=== PATIENT | female | born 1955 | race Caucasian/White ===

== ENCOUNTER → 2017-01-30 | Outpatient (CLI) | payer BC ==
--- NOTE | 2017-01-30 16:10 | MAMMOGRAPHY REPORT ---
BILATERAL DIGITAL SCREENING MAMMOGRAM TOMOSYNTHESIS WITH CAD: 01/30/2017 CLINICAL HISTORY: Routine screening. TECHNIQUE: Breast tomosynthesis in addition to standard 2D mammography was performed. Current study was also evaluated with a Computer Aided Detection (CAD) system. COMPARISON: Comparison is made to exams dated: 12/22/2015 mammogram, 12/20/2014 mammogram, 12/15/2013 m ammogram, 10/13/2012 mammogram, 10/08/2011 mammogram, and 09/28/2010 mammogram - [facility] nter. BREAST COMPOSITION: There are scattered areas of fibroglandular density in both breasts. FINDINGS: The parenchymal pattern is unchanged. No developing mass, architectural distortion or clus ter of suspicious microcalcifications is seen in either breast. IMPRESSION: ACR BI-RADS CATEGORY 2: BENIGN There is no mammographic evidence of malignancy. A 1 year screening mammogram is recommended. The pa tient will receive written notification of the results. Approximately 10% of breast cancers are not detected with mammography. A negative mammographic report should not delay biopsy if a clinically suggestive mass is present. Marjan Haney M.D. ay/:01/30/2017 15:23:53 [employer]: Melany LONG(R)(M), [facility] letter sent: Normal 1/2 BI-RADS Code: ACR BI-RADS Category 2: Benign
== END | disposition home or self-care (01) ==
LOC: C.MAMM 14:58
PROVIDERS: ATTEND Family Medicine
DX: Z12.31 Encounter for screening mammogram for malignant neoplasm of breast (principal)

== ENCOUNTER 2017-04-10 10:49 | Inpatient (IN) | payer BC ==
[~2017-04-10] VITALS: Ht 170.2 cm; Wt 83.2 kg
[2017-04-10] MEDS ORDERED: ONDANSETRON INJ 2 MG/ML 2 ML VIAL IV STA (11:06)
--- NOTE | 2017-04-10 11:26 | DIAGNOSTIC IMAGING REPORT ---
CHEST ONE VIEW PORTABLE CLINICAL HISTORY: Abdominal pain. COMPARISON STUDY: No previous studies for comparison. FINDINGS: Lung volumes are normal. Lungs are clear. No pneumothorax or pleural effusion is present. Pulmonary vascularity is normal. Mild cardiomegaly is noted. IMPRESSION: 1. No acute cardiopulmonary findings. 2. Mild cardiomegaly. Electronically signed by: Ok Velasquez M.D. 04/10/2017 11:24 AM Dictated Date/Time: 04/10/2017 11:23 AM
[2017-04-10 11:27] LABS: BASO % 0.4 %; BASO ABS # 0.02 K/uL (0-0.2); COMPLETE YES; EOS % 0.6 %; IG% 0.2 %; LYMPH % 24.4 %; LYMPH ABS # 1.23 K/uL (1.2-3.4); MEAN CELL VOLUME 92.4 fL (80-100); MEAN CORPUSCULAR HEMOGLOBIN 31.6 pg (25-34); MEAN CORPUSCULAR HGB CONC 34.3 g/dl (32-36); MEAN PLATELET VOLUME 10.3 fL (7.4-10.4); MONO % 6.7 %; NEUT % 67.7 %; PLATELET COUNT 177 K/uL (130-400); RED BLOOD COUNT 4.33 M/uL (4.2-5.4); WHITE BLOOD COUNT 5.04 K/uL (4.8-10.8)
[2017-04-10 11:36] LABS: PROTHROMBIN TIME (PATIENT) 10.5 SECONDS (9.0-12.0)
[2017-04-10 11:47] LABS: BUN/CREATININE RATIO 19.4 (10-20); CALCIUM 9.1 mg/dl (8.5-10.1); CREATININE 0.7 mg/dl (0.60-1.20)
[2017-04-10 11:55] LABS: CKMB/CK RATIO 3.5 (0-3.0)
[2017-04-10] MEDS ORDERED: ATOR10TA82 PO (12:03)
[2017-04-10] MEDS ORDERED: RANI150T3 PO (12:03)
[2017-04-10] MEDS ORDERED: CALCCAP7 PO (12:03)
[2017-04-10] MEDS ORDERED: PSYL58.636 PO (12:03)
[2017-04-10] MEDS ORDERED: GLUC500C60 PO (12:03)
[2017-04-10] MEDS ORDERED: ASPI81TA28 PO (12:03)
[2017-04-10] MEDS ORDERED: OMEG10007 PO (12:03)
--- NOTE | 2017-04-10 12:03 | EMERGENCY ROOM VISIT NOTE ---
History Report prepared by Betzy: Stacy Weber Under the Supervision of: Dr. Kaiden Moseley D.O. First contact with patient: 10:57 Chief Complaint: CARDIAC ASSESSMENT Stated Complaint: HEART ATTACK SX'S History of Present Illness The patient is a 61 year old female who presents to the Emergency Room for a cardiac assessment. The patient woke up at 3am today with back pain, epigastric pain, and "excessive burping." She thought that she had eaten something that was causing her symptoms. This morning she went to a [id number]. They did an ECG and blood work. She was discharged home and advised to take Zantac. She took Zantac without any relief of her symptoms. A couple of hours later she received a call that her troponin was elevated and she should come to the ED for further evaluation. The patient is still experiencing some chest pain, abdominal pain, and nausea. She rates her current pain as a 4/10 in severity. She denies shortness of breath and pain or swelling in her legs. She has a history of hypertrophic cardiomyopathy. She has had a stress test in the past but states that it has been a few years. She has never had a cardiac catheterization. Source of History: patient Onset: this morning Position: chest Symptom Intensity: 4/10 Timing: constant Associated Symptoms: + chest pain, + nausea, + abdominal pain, No SOB Review of Systems See HPI for pertinent positives & negatives. A total of 10 systems reviewed and were otherwise negative. Past Medical & Surgical Medical Problems: (1) Elevated troponin (2) Hyperlipidemia (3) Hypertrophic cardiomyopathy (4) Small bowel obstruction Surgical Problems: (1) H/O: hysterectomy Family History No pertinent history stated. Social History Smoking Status: Never Smoker Alcohol Use: occasionally Marital Status: Housing Status: lives with significant other Current/Historical Medications Scheduled Aspirin (Aspirin Ec), 81 MG PO Q2D Atorvastatin (Lipitor), 10 MG PO Q2D Calcium Carbonate-Vitamin D (Calcium Plus Vitamin D), 2 CAP PO DAILY Fish Oil ([place]-3), 1 CAP PO DAILY Glucosamine-Chondroitin 500MG/400 Mg (Glucosamine-Chondroitin 500 Mg/400 Mg), 1 CAP PO DAILY Psyllium (Metamucil Fiber), 1 DOSE PO DAILY Ranitidine Hcl (Zantac), 150 MG PO PRN Allergies Coded Allergies: No Known Allergies (Verified , 04/10/17) Physical Exam Vital Signs Date Time Temp Pulse Resp B/P (MAP) Pulse Ox O2 Delivery O2 Flow Rate FiO2 04/10/17 12:07 53 20 149/78 94 Room Air 04/10/17 11:48 52 20 164/69 95 Room Air 04/10/17 11:09 61 04/10/17 11:05 Room Air 04/10/17 10:54 37.3 82 18 217/84 98 Room Air Physical Exam GENERAL: Patient is awake, alert, and in no acute distress. Patient is resting comfortably and showing no signs of anxiety EYES: The conjunctivae are clear. The pupils are round and reactive. EARS, NOSE, MOUTH AND THROAT: The nose is without any evidence of any deformity. Mucous membranes are moist tongue is midline NECK: The neck is nontender and supple. RESPIRATORY: Normal respiratory effort is noted there is no evidence of wheezing rhonchi or rales CARDIOVASCULAR: Regular rate and rhythm noted there no murmurs rubs or gallops normal S1 normal S2 GASTROINTESTINAL: The abdomen is mildly distended but soft. There was pain in the epigastric region to palpation no guarding or rigidity was noted. Bowel sounds are present in all quadrants. MUSCULOSKELETAL/EXTREMITIES: There is no evidence of gross deformity full range of motion is noted in the hips and shoulders SKIN: There is no obvious evidence of any rash. There are no petechiae, pallor or cyanosis noted. NEUROLOGIC: Patient is awake alert and oriented x3 Medical Decision & Procedures ER Provider Diagnostic Interpretation: Radiology results as stated below per my review and radiologist interpretation: CHEST ONE VIEW PORTABLE CLINICAL HISTORY: Abdominal pain. COMPARISON STUDY: No previous studies for comparison. FINDINGS: Lung volumes are normal. Lungs are clear. No pneumothorax or pleural effusion is present. Pulmonary vascularity is normal. Mild cardiomegaly is noted. IMPRESSION: 1. No acute cardiopulmonary findings. 2. Mild cardiomegaly. Electronically signed by: Ok Velasquez M.D. 04/10/2017 11:24 AM Dictated Date/Time: 04/10/2017 11:[address] SCAN OF THE ABDOMEN AND PELVIS WITHOUT CONTRAST CLINICAL HISTORY: Epigastric pain COMPARISON STUDY: No previous studies for comparison. TECHNIQUE: CT scan of the abdomen and pelvis was performed from the lung bases to the proximal femurs. Images are reviewed in the axial, sagittal, and coronal planes. IV contrast was not administered for this examination. A dose lowering technique was utilized adhering to the principles of ALARA. CT DOSE: 449.34 mGy.cm FINDINGS: Lower chest: The heart is normal in size and configuration, without pericardial effusion. The lung bases and pleural spaces are clear. Liver: The unenhanced liver is normal in size, contour, and attenuation. There is no intrahepatic biliary ductal dilatation. Gallbladder: Unremarkable. Spleen: Normal in size and attenuation. Pancreas: Unremarkable. Adrenal glands: Unremarkable. Kidneys: No renal, ureteral, or bladder calculi are visualized. Bowel: There is no evidence of acute diverticulitis. The appendix appears normal. There are dilated proximal jejunal loops. The distal small bowel is of normal caliber. The findings are indicative of a small bowel obstructive pattern. There is a left upper quadrant transition zone. There is minimal mesenteric edema. Small bowel loops measure up to 37 mm in diameter. Peritoneum: There is no intraperitoneal free air or abdominal ascites. Vasculature: The abdominal aorta is normal in course and caliber. Adenopathy: None. Pelvic viscera: The patient is status post a prior hysterectomy Skeletal structures: No destructive osseous lesions are seen. IMPRESSION: 1. Dilated fluid-filled proximal small bowel loops with normal caliber distal small bowel. There is minimal associated mesenteric edema. The findings are consistent with a small bowel obstruction. There is no free air. 2. Normal appendix. No evidence of acute diverticulitis. Electronically signed by: John Mckeon M.D. 04/10/2017 12:13 PM Dictated Date/Time: 04/10/2017 11:46 AM Laboratory Results 04/10/17 11: Red Blood Count 4.33, Mean Corpuscular Volume 92.4, Mean Corpuscular Hemoglobin 31.6, Mean Corpuscular Hemoglobin Concent 34.3, Mean Platelet Volume 10.3, Neutrophils (%) (Auto) 67.7, Lymphocytes (%) (Auto) 24.4, Monocytes (%) (Auto) 6.7, Eosinophils (%) (Auto) 0.6, Basophils (%) (Auto) 0.4, Neutrophils # (Auto) 3.41, Lymphocytes # (Auto) 1.23, Monocytes # (Auto) 0.34, Eosinophils # (Auto) 0.03, Basophils # (Auto) 0.02 04/10/17 11:15 Test 04/10/17 11:15 04/10/17 12:30 White Blood Count 5.04 K/uL (4.8-10.8) Red Blood Count 4.33 M/uL (4.2-5.4) Hemoglobin 13.7 g/dL (12.0-16.0) Hematocrit 40.0 % (37-47) Mean Corpuscular Volume 92.4 fL (80-100) Mean Corpuscular Hemoglobin 31.6 pg (25-34) Mean Corpuscular Hemoglobin Concent 34.3 g/dl (32-36) Platelet Count 177 K/uL (130-400) Mean Platelet Volume 10.3 fL (7.4-10.4) Neutrophils (%) (Auto) 67.7 % Lymphocytes (%) (Auto) 24.4 % Monocytes (%) (Auto) 6.7 % Eosinophils (%) (Auto) 0.6 % Basophils (%) (Auto) 0.4 % Neutrophils # (Auto) 3.41 K/uL (1.4-6.5) Lymphocytes # (Auto) 1.23 K/uL (1.2-3.4) Monocytes # (Auto) 0.34 K/uL (0.11-0.59) Eosinophils # (Auto) 0.03 K/uL (0-0.5) Basophils # (Auto) 0.02 K/uL (0-0.2) RDW Standard Deviation 41.8 fL (36.4-46.3) RDW Coefficient of Variation 12.2 % (11.5-14.5) Immature Granulocyte % (Auto) 0.2 % Immature Granulocyte # (Auto) 0.01 K/uL (0.00-0.02) Prothrombin Time 10.5 SECONDS (9.0-12.0) Prothromb Time International Ratio 1.0 (0.9-1.1) Activated Partial Thromboplast Time 27.0 SECONDS (21.0-31.0) Partial Thromboplastin Ratio 1.0 Anion Gap 8.0 mmol/L (3-11) Est Creatinine Clear Calc Drug Dose 95.7 ml/min Estimated GFR () 109.1 Estimated GFR (Non- 94.2 BUN/Creatinine Ratio 19.4 (10-20) Calcium Level 9.1 mg/dl (8.5-10.1) Total Bilirubin 0.7 mg/dl (0.2-1) Direct Bilirubin 0.2 mg/dl (0-0.2) Aspartate Amino Transf (AST/SGOT) 31 U/L (15-37) Alanine Aminotransferase (ALT/SGPT) 36 U/L (12-78) Alkaline Phosphatase 55 U/L (45-117) Total Creatine Kinase 198 U/L (26-192) Creatine Kinase MB 6.9 ng/ml (0.5-3.6) Creatine Kinase MB Ratio 3.5 (0-3.0) Total Protein 7.5 gm/dl (6.4-8.2) Albumin 4.2 gm/dl (3.4-5.0) Amylase Level 51 U/L (25-115) Lipase 120 U/L (73-393) Urine Color YELLOW Urine Appearance CLEAR (CLEAR) Urine pH >= 9.0 (4.5-7.5) Urine Specific [place] 1.014 (1.000-1.030) Urine Protein NEG (NEG) Urine Glucose (UA) NEG (NEG) Urine Ketones TRACE (NEG) Urine Occult Blood NEG (NEG) Urine Nitrite NEG (NEG) Urine Bilirubin NEG (NEG) Urine Urobilinogen NEG (NEG) Urine Leukocyte Esterase NEG (NEG) Laboratory results per my review. Medications Administered Medications (Trade) Dose Ordered Sig/[place] Route Start Time Stop Time Status Last Admin Dose Admin Ondansetron HCl (Zofran Inj) 4 mg NOW STAT IV 04/10/17 11:06 04/10/17 11:07 DC 04/10/17 11:21 4 MG ECG Indication: chest pain Rate (beats per minute): 63 Rhythm: normal sinus Findings: nonspecific-ST abn, T-wave inversion (diffuse), other (LVH by voltage criteria) Comparison ECG Date: no prior available ED Course 1057: The patient was evaluated in room C6. A complete history and physical examination were performed. 1106: Zofran 4 mg IV 1222: I reassessed the patient at this time. She is resting more comfortably. I discussed the results and treatment plan with the patient. I answered all pertaining questions that she had. She expressed understanding and verbalized agreement. 1226: I spoke with Dr. Grimes. We discussed the patients case. The patient will be evaluated by the [facility] for further management. Medical Decision Differential diagnosis: Etiologies such as cardiac ischemia, aortic dissection, pulmonary embolism, pneumonia, pneumothorax, musculoskeletal, infections, pericarditis, myocarditis , esophageal rupture, gastrointestinal, as well as others were entertained. Nursing notes reviewed. The patient is a 61-year-old female who presented to the emergency department for cardiac evaluation. The patient has been expressing epigastric discomfort as well as frequent burping. She's had nausea. Her physical exam was consistent with upper abdominal pain on palpation. The patient's only surgical history is hysterectomy. She has a history of left ventricular hypertrophy and was seen by her primary care physician's office today. She was found have an abnormal EKG and an elevated troponin and was sent to the emergency [place] for further evaluation. I do feel that the patient's presentation today is consistent with a GI presentation. Her CT did show signs of possible small bowel obstruction. I discussed her case with the on-call [facility] hospitalist. She was given aspirin prior to arrival. She was treated with Zofran here. I discussed the patient's laboratory and radiographic studies with her and at this time I would be concerned that this could be more of a GI presentation but given her abnormalities on her cardiac workup which could be consistent with LVH I still feel that she may require further evaluation by cardiology as well as surgery. I discussed his case with the on-call [facility] hospitalist. They've agreed to evaluate the patient in the emergency apartment for further management and disposition. Medication Reconcilliation Current Medication List: was personally reviewed by me Blood Pressure Screening Patient's blood pressure: Elevated blood pressure Blood pressure disposition: Referred to PCP Consults Time Called: 1222 Consulting Physician: Dr. Grimes Returned Call: [address] Grimes. We discussed the patients case. The patient will be evaluated by the [facility] for further management. Impression Primary Impression: SBO (small bowel obstruction) Additional Impressions: Abnormal ECG Elevated troponin Scribe Attestation The scribe's documentation has been prepared under my direction and personally reviewed by me in its entirety. I confirm that the note above accurately reflects all work, treatment, procedures, and medical decision making performed by me. Departure Information Dispostion Being Evaluated By Hospitalist Referrals Bro Oleary M.D. (PCP) Patient Instructions [facility] Problem Qualifiers
--- NOTE | 2017-04-10 12:14 | DIAGNOSTIC IMAGING REPORT ---
CT SCAN OF THE ABDOMEN AND PELVIS WITHOUT CONTRAST CLINICAL HISTORY: Epigastric pain COMPARISON STUDY: No previous studies for comparison. TECHNIQUE: CT scan of the abdomen and pelvis was performed from the lung bases to the proximal femurs. Images are reviewed in the axial, sagittal, and coronal planes. IV contrast was not administered for this examination. A dose lowering technique was utilized adhering to the principles of ALARA. CT DOSE: 449.34 mGy.cm FINDINGS: Lower chest: The heart is normal in size and configuration, without pericardial effusion. The lung bases and pleural spaces are clear. Liver: The unenhanced liver is normal in size, contour, and attenuation. There is no intrahepatic biliary ductal dilatation. Gallbladder: Unremarkable. Spleen: Normal in size and attenuation. Pancreas: Unremarkable. Adrenal glands: Unremarkable. Kidneys: No renal, ureteral, or bladder calculi are visualized. Bowel: There is no evidence of acute diverticulitis. The appendix appears normal. There are dilated proximal jejunal loops. The distal small bowel is of normal caliber. The findings are indicative of a small bowel obstructive pattern. There is a left upper quadrant transition zone. There is minimal mesenteric edema. Small bowel loops measure up to 37 mm in diameter. Peritoneum: There is no intraperitoneal free air or abdominal ascites. Vasculature: The abdominal aorta is normal in course and caliber. Adenopathy: None. Pelvic viscera: The patient is status post a prior hysterectomy Skeletal structures: No destructive osseous lesions are seen. IMPRESSION: 1. Dilated fluid-filled proximal small bowel loops with normal caliber distal small bowel. There is minimal associated mesenteric edema. The findings are consistent with a small bowel obstruction. There is no free air. 2. Normal appendix. No evidence of acute diverticulitis. Electronically signed by: John Mckeon M.D. 04/10/2017 12:13 PM Dictated Date/Time: 04/10/2017 11:46 AM
[2017-04-10] MEDS ORDERED: MoRPHine SULFATE 2 MG/ML CARP IV PRN (12:30)
[2017-04-10] MEDS ORDERED: LORAZEPAM 2 MG/ML 1 ML VIAL IV PRN ×2 (12:30)
[2017-04-10] MEDS ORDERED: NITROGLYCERIN 0.4 MG SL PER TAB CHARGE SL PRN (12:30)
[2017-04-10] MEDS ORDERED: ONDANSETRON INJ 2 MG/ML 2 ML VIAL IV PRN (12:30)
[2017-04-10] MEDS ORDERED: MoRPHine SULFATE 4 MG/ML 1 ML CARP\\VIAL IV PRN (12:30)
[2017-04-10 12:48] LABS: URINE APPEARANCE CLEAR (CLEAR); URINE BILIRUBIN NEG (NEG); URINE COLOR YELLOW; URINE NITRITE NEG (NEG); URINE PH >= 9.0 (4.5-7.5); URINE SPECIFIC GRAVITY 1.014 (1.000-1.030); UROBILINOGEN NEG (NEG)
[2017-04-10 12:49] LABS: MANUAL MICROSCOPIC REQUIRED? NO; REVIEW REQ? NO
[2017-04-10] MEDS ORDERED: ACETAMINOPHEN IV 650 MG in EMPTY BAG 0 ML IV PRN (13:30)
--- NOTE | 2017-04-10 13:34 | Medical Consult ---
Consultation Date of Consultation: Apr 10, 2017. Attending Physician: Reason for Consultation: Small Bowel Obstruction History of Present Illness 61-year-old female with past medical history significant for hypertrophic cardiomyopathy (last seen by Kaiden Okeefe, Cardiology, in 2014) and hypercholesterolemia presented to [facility] ED with complaints of back pain, epigastric pain, and excessive burping. Patient states that she presented to walk-in clinic this AM for evaluation where they conducted an ECG and some bloodwork- pt was instructed to take a Zantac when she was discharged to home from clinic. Reports that Zantac did not help with her symptoms. Patient received a call later stating that she report to ED after troponin level returned and it was elevated. Patient currently denies abdominal pain- reports that she has a sensation of fullness. She denies feeling nauseous. Reports last bowel movement was this AM- only small amount of stool. Patient denies having a bowel obstruction in the past. She had two previous surgeries- 1. Tubal Ligation and 2. Vaginal Hysterectomy. She currently denies chest pain or shortness of breath. Past Medical/Surgical History 1. Heart Attack Symptoms (Cardiac Assessment) 2. Small Bowel Obstruction on CT scan. Surgical History 1. Tubal Ligation 2. Vaginal Hysterectomy. Social History Smoking Status: Never Smoker Marital Status: Housing Status: lives with significant other Allergies Coded Allergies: No Known Allergies (Verified , 04/10/17) Current Inpatient Medications Current Inpatient Medications Medications (Trade) Dose Ordered Sig/[place] Route Start Time Stop Time Status Last Admin Dose Admin Influenza Virus Vaccine Quadrival (Flucelvax Quad Vaccine) 0.5 ml ONCE ONCE IM. 04/10/17 12:30 04/10/17 12:31 UNV Pneumococcal Polysaccharide Vaccine (Pneumovax-23 Inj) 25 mcg ONCE ONCE IM. 04/10/17 12:30 04/10/17 12:31 UNV Sodium Chloride 1,000 ml @ 100 mls/hr Q10H IV 04/10/17 12:29 05/10/17 12:28 UNV Ondansetron HCl (Zofran Inj) 4 mg Q6H PRN IV 04/10/17 12:30 05/10/17 12:29 Nitroglycerin (Nitrostat Tab) 0.4 mg UD PRN SL 04/10/17 12:30 05/10/17 12:29 Lorazepam (Ativan Inj) 0.5 mg Q4H PRN IV 04/10/17 12:30 05/10/17 12:29 UNV Lorazepam (Ativan Inj) 1 mg Q4H PRN IV 04/10/17 12:30 05/10/17 12:29 UNV Morphine Sulfate (MoRPHine SULFATE INJ) 4 mg Q4H PRN IV 04/10/17 12:30 04/24/17 12:29 Morphine Sulfate (MoRPHine SULFATE INJ) 2 mg Q4H PRN IV 04/10/17 12:30 04/24/17 12:29 Pantoprazole Sodium 40 mg/ Syringe 10 ml @ 5 mls/min DAILY@11 IV 04/11/17 11:00 05/11/17 10:59 UNV Review of Systems Constitutional: No fever, No chills Abdomen: + pain (mild epigastric discomfort. ), No nausea, No vomiting, No diarrhea Physical Exam Date Time Temp Pulse Resp B/P (MAP) Pulse Ox O2 Delivery O2 Flow Rate FiO2 04/10/17 12:07 53 20 149/78 94 Room Air 04/10/17 11:48 52 20 164/69 95 Room Air 04/10/17 11:09 61 04/10/17 11:05 Room Air 04/10/17 10:54 37.3 82 18 217/84 98 Room Air General Appearance: WD/WN, no apparent distress Head: normocephalic, atraumatic Abdomen/GI: non tender, soft, + pertinent finding (Abdomen is not distended. ) Laboratory Results Last 24 Hours Test 04/10/17 11:15 04/10/17 12:30 White Blood Count 5.04 K/uL Red Blood Count 4.33 M/uL Hemoglobin 13.7 g/dL Hematocrit 40.0 % Mean Corpuscular Volume 92.4 fL Mean Corpuscular Hemoglobin 31.6 pg Mean Corpuscular Hemoglobin Concent 34.3 g/dl Platelet Count 177 K/uL Mean Platelet Volume 10.3 fL Neutrophils (%) (Auto) 67.7 % Lymphocytes (%) (Auto) 24.4 % Monocytes (%) (Auto) 6.7 % Eosinophils (%) (Auto) 0.6 % Basophils (%) (Auto) 0.4 % Neutrophils # (Auto) 3.41 K/uL Lymphocytes # (Auto) 1.23 K/uL Monocytes # (Auto) 0.34 K/uL Eosinophils # (Auto) 0.03 K/uL Basophils # (Auto) 0.02 K/uL RDW Standard Deviation 41.8 fL RDW Coefficient of Variation 12.2 % Immature Granulocyte % (Auto) 0.2 % Immature Granulocyte # (Auto) 0.01 K/uL Prothrombin Time 10.5 SECONDS Prothromb Time International Ratio 1.0 Activated Partial Thromboplast Time 27.0 SECONDS Partial Thromboplastin Ratio 1.0 Sodium Level 137 mmol/L Potassium Level 4.0 mmol/L Chloride Level 102 mmol/L Carbon Dioxide Level 27 mmol/L Anion Gap 8.0 mmol/L Blood Urea Nitrogen 14 mg/dl Creatinine 0.70 mg/dl Est Creatinine Clear Calc Drug Dose 95.7 ml/min Estimated GFR () 109.1 Estimated GFR (Non- 94.2 BUN/Creatinine Ratio 19.4 Random Glucose 100 mg/dl Calcium Level 9.1 mg/dl Total Bilirubin 0.7 mg/dl Direct Bilirubin 0.2 mg/dl Aspartate Amino Transf (AST/SGOT) 31 U/L Alanine Aminotransferase (ALT/SGPT) 36 U/L Alkaline Phosphatase 55 U/L Total Creatine Kinase 198 U/L Creatine Kinase MB 6.9 ng/ml Creatine Kinase MB Ratio 3.5 Troponin I 0.324 ng/ml Total Protein 7.5 gm/dl Albumin 4.2 gm/dl Amylase Level 51 U/L Lipase 120 U/L Urine Color YELLOW Urine Appearance CLEAR Urine pH >= 9.0 Urine Specific [place] 1.014 Urine Protein NEG Urine Glucose (UA) NEG Urine Ketones TRACE Urine Occult Blood NEG Urine Nitrite NEG Urine Bilirubin NEG Urine Urobilinogen NEG Urine Leukocyte Esterase NEG CT SCAN OF THE ABDOMEN AND PELVIS WITHOUT CONTRAST CLINICAL HISTORY: Epigastric pain COMPARISON STUDY: No previous studies for comparison. TECHNIQUE: CT scan of the abdomen and pelvis was performed from the lung bases to the proximal femurs. Images are reviewed in the axial, sagittal, and coronal planes. IV contrast was not administered for this examination. A dose lowering technique was utilized adhering to the principles of ALARA. CT DOSE: 449.34 mGy.cm FINDINGS: Lower chest: The heart is normal in size and configuration, without pericardial effusion. The lung bases and pleural spaces are clear. Liver: The unenhanced liver is normal in size, contour, and attenuation. There is no intrahepatic biliary ductal dilatation. Gallbladder: Unremarkable. Spleen: Normal in size and attenuation. Pancreas: Unremarkable. Adrenal glands: Unremarkable. Kidneys: No renal, ureteral, or bladder calculi are visualized. Bowel: There is no evidence of acute diverticulitis. The appendix appears normal. There are dilated proximal jejunal loops. The distal small bowel is of normal caliber. The findings are indicative of a small bowel obstructive pattern. There is a left upper quadrant transition zone. There is minimal mesenteric edema. Small bowel loops measure up to 37 mm in diameter. Peritoneum: There is no intraperitoneal free air or abdominal ascites. Vasculature: The abdominal aorta is normal in course and caliber. Adenopathy: None. Pelvic viscera: The patient is status post a prior hysterectomy Skeletal structures: No destructive osseous lesions are seen. IMPRESSION: 1. Dilated fluid-filled proximal small bowel loops with normal caliber distal small bowel. There is minimal associated mesenteric edema. The findings are consistent with a small bowel obstruction. There is no free air. 2. Normal appendix. No evidence of acute diverticulitis. Electronically signed by: John Mckeon M.D. 04/10/2017 12:13 PM Dictated Date/Time: 04/10/2017 11:46 AM Assessment & Plan 61-year-old female with back pain and epigastric pain; Small Bowel Obstruction on CT scan. Patient seen and examined in Emergency Room- she is sitting up in bed, smiling- no signs of distress. Patient to be admitted to Medicine's Service- Tele floor. Cardiology consult placed. Abdominal pain has subsided and she is not nauseous- no indication for NG tube placement at this time. If patient were to become nauseous may need to place NG tube. Patient to remain NPO with Ice Chips and Sips Will repeat KUB in AM. No indication for surgical intervention at this time- General Surgery will continue to follow. Patient's assessment and plan discussed with Dr. Harvey.
--- NOTE | 2017-04-10 13:43 | History and Physical ---
History & Physical Date & Time of Service: Apr 10, 2017 at 13:31 Chief Complaint: Heart Attack Sx's Primary Care Physician: Bro Oleary M.D. History of Present Illness 61-year-old female was awoken in the middle the night with central abdominal pain and increased belching pain radiating to her lower thoracic upper lumbar back this was dull achy pain. This is out of her usual state as the patient is usually fairly healthy pain-free and active. The patient's requested she come to the emergency department however she insisted they go to urgent care center the patient was treated or at least an urgent care center being prescribed Zantac and she took one dose. She then received a phone call that her blood work was abnormal specifically an elevated troponin and was recommended to report to the emergency department. In our ER and the lab work confirms her troponin remains mildly elevated at 0.3 she has a history of hypertrophic cardiomyopathy previously seen by Dr. Okeefe currently followed by [facility] establishing care with Dr. Monge, At no point did she have any chest pressure radiation of pain to her jaw nausea diaphoresis or shortness of breath she states that her hypertrophic cardiomyopathy is fairly asymptomatic she only takes aspirin and atorvastatin every other day otherwise is only on [id number] medications such as fish oil calcium D and glucosamine for some knee discomfort She is currently resting comfortably with exception of some mild low back pain a CT scan of her abdomen and pelvis done because of physical examination discomfort in her abdomen revealed a partial small bowel obstruction by imaging. Past Medical/Surgical History Medical Problems: (1) Hyperlipidemia Status: Chronic (2) Hypertrophic cardiomyopathy Status: Chronic Surgical Problems: (1) H/O: hysterectomy Status: Resolved Social History Smoking Status: Never Smoker Alcohol Use: socially Drug Use: none Marital Status: Housing status: lives with family Immunizations History of Influenza Vaccine: Unknown History of Tetanus Vaccine?: Unknown History of Pneumococcal: Unknown Multi-Drug Resistant Organisms History of MDRO: No Allergies Coded Allergies: No Known Allergies (Verified , 04/10/17) Home Medications Scheduled Aspirin (Aspirin Ec), 81 MG PO Q2D Atorvastatin (Lipitor), 10 MG PO Q2D Calcium Carbonate-Vitamin D (Calcium Plus Vitamin D), 2 CAP PO DAILY Fish Oil ([place]-3), 1 CAP PO DAILY Glucosamine-Chondroitin 500MG/400 Mg (Glucosamine-Chondroitin 500 Mg/400 Mg), 1 CAP PO DAILY Psyllium (Metamucil Fiber), 1 DOSE PO DAILY Ranitidine Hcl (Zantac), 150 MG PO PRN Review of Systems ROS: well nourished well developed No double vision blurry vision No problems with speech or swallowing No palpitations, chest pain or pressure no other radiating symptoms No Wheezing or breathing issues Central abdominal pain but no nausea vomiting no constipation or diarrhea last bowel movement 1 day ago No burning urine urine frequency or changes in color Chronic daily knee pain No skin rashes or oral lesions No unusual bruising or bleeding Mild focused back pain in the lower thoracic high lumbar region dull reproduced by movement 2/10 or numbness or loss of strength No changes in memory or confusion Physical Exam Vital Signs Date Time Temp Pulse Resp B/P (MAP) Pulse Ox O2 Delivery O2 Flow Rate FiO2 04/10/17 12:07 53 20 149/78 94 Room Air 04/10/17 11:48 52 20 164/69 95 Room Air 04/10/17 11:09 61 04/10/17 11:05 Room Air 04/10/17 10:54 37.3 82 18 217/84 98 Room Air General Appearance: WD/WN, + mild distress Head: normocephalic, atraumatic Eyes: normal inspection, PERRL, EOMI ENT: hearing grossly normal, pharynx normal Neck: supple, no JVD Respiratory/Chest: chest non-tender, lungs clear, normal breath sounds Cardiovascular: regular rate, rhythm, no gallop, no JVD, no murmur Abdomen/GI: + tenderness (central abdomen), + abnormal bowel sounds (hypoactive ) Back: no CVA tenderness, + pertinent finding (tenderness to palpation of the lumbar spine) Extremities/Musculoskelatal: no pedal edema, normal range of motion Neurologic/Psych: alert, oriented x 3 Skin: normal color, warm/dry, no rash Diagnostics Laboratory Results Results Past 24 Hours Test 04/10/17 11:15 04/10/17 12:30 Range/Units White Blood Count 5.04 4.8-10.8 K/uL Red Blood Count 4.33 4.2-5.4 M/uL Hemoglobin 13.7 12.0-16.0 g/dL Hematocrit 40.0 37-47 % Mean Corpuscular Volume 92.4 80-100 fL Mean Corpuscular Hemoglobin 31.6 25-34 pg Mean Corpuscular Hemoglobin Concent 34.3 32-36 g/dl Platelet Count 177 130-400 K/uL Mean Platelet Volume 10.3 7.4-10.4 fL Neutrophils (%) (Auto) 67.7 % Lymphocytes (%) (Auto) 24.4 % Monocytes (%) (Auto) 6.7 % Eosinophils (%) (Auto) 0.6 % Basophils (%) (Auto) 0.4 % Neutrophils # (Auto) 3.41 1.4-6.5 K/uL Lymphocytes # (Auto) 1.23 1.2-3.4 K/uL Monocytes # (Auto) 0.34 0.11-0.59 K/uL Eosinophils # (Auto) 0.03 0-0.5 K/uL Basophils # (Auto) 0.02 0-0.2 K/uL RDW Standard Deviation 41.8 36.4-46.3 fL RDW Coefficient of Variation 12.2 11.5-14.5 % Immature Granulocyte % (Auto) 0.2 % Immature Granulocyte # (Auto) 0.01 0.00-0.02 K/uL Prothrombin Time 10.5 9.0-12.0 SECONDS Prothromb Time International Ratio 1.0 0.9-1.1 Activated Partial Thromboplast Time 27.0 21.0-31.0 SECONDS Partial Thromboplastin Ratio 1.0 Sodium Level 137 136-145 mmol/L Potassium Level 4.0 3.5-5.1 mmol/L Chloride Level 102 98-107 mmol/L Carbon Dioxide Level 27 21-32 mmol/L Anion Gap 8.0 3-11 mmol/L Blood Urea Nitrogen 14 7-18 mg/dl Creatinine 0.70 0.60-1.20 mg/dl Est Creatinine Clear Calc Drug Dose 95.7 ml/min Estimated GFR () 109.1 Estimated GFR (Non- 94.2 BUN/Creatinine Ratio 19.4 10-20 Random Glucose 100 70-99 mg/dl Calcium Level 9.1 8.5-10.1 mg/dl Total Bilirubin 0.7 0.2-1 mg/dl Direct Bilirubin 0.2 0-0.2 mg/dl Aspartate Amino Transf (AST/SGOT) 31 15-37 U/L Alanine Aminotransferase (ALT/SGPT) 36 12-78 U/L Alkaline Phosphatase 55 45-117 U/L Total Creatine Kinase 198 26-192 U/L Creatine Kinase MB 6.9 0.5-3.6 ng/ml Creatine Kinase MB Ratio 3.5 0-3.0 Troponin I 0.324 0-0.045 ng/ml Total Protein 7.5 6.4-8.2 gm/dl Albumin 4.2 3.4-5.0 gm/dl Amylase Level 51 25-115 U/L Lipase 120 73-393 U/L Urine Color YELLOW Urine Appearance CLEAR CLEAR Urine pH >= 9.0 4.5-7.5 Urine Specific [place] 1.014 1.000-1.030 Urine Protein NEG NEG Urine Glucose (UA) NEG NEG Urine Ketones TRACE NEG Urine Occult Blood NEG NEG Urine Nitrite NEG NEG Urine Bilirubin NEG NEG Urine Urobilinogen NEG NEG Urine Leukocyte Esterase NEG NEG Diagnostic Radiology CT abdomen and pelvis with concern for small bowel obstruction per radiology report Elevated troponin of 0.32 CXR normal other (sinus rhythm LVH by voltage lateral T-wave inversions no old for comparison) Impression Assessment and Plan 61-year-old female here with abdominal pain CT scan suggests small bowel obstruction with incidentally elevated troponin and history of hypertrophic cardiomyopathy Small bowel obstruction, very little clinical signs will have nothing by mouth except for chips and sips surgical evaluation intravenous fluids for hydration and parenteral opiates for pain control no need for NG tube at this time the patient has had previous abdominal surgery albeit hysterectomy and left upper scopic tubal ligation Elevated troponins these will be collected serially patient will have aspirin held at this time due to the possibility of surgical intervention, cardiology evaluation will be undertaken, echocardiogram is currently pending as the patient cannot recall her last echocardiogram. Hypertrophic cardiopathy this is per history her medications do not suggest she has no significant problems with it likewise her functional ability she states is very good we will hopefully interface with [facility]ology to determine the extent of her hypertrophy. This may explain her EKG changes as she has large voltages with possibly reciprocal T-wave changes DVT prevention is SCDs at this time likewise for concern for surgical intervention we are may also consider heparin therapy and that has a shorter half-life VTE Prophylaxis VTE Risk Assessment Done? Y/N: Yes Risk Level: Moderate
[2017-04-10 15:15] VITALS: BP 158/74; PULSE 60; TEMP 37.4; O2SAT 95; Ht 170.2 cm; Wt 83.2 kg
[2017-04-10 16:00] VITALS: O2SAT 95
[2017-04-10] MEDS: SODIUM CHLORIDE 0.9% 1000ML 1,000 ML IV SCH (16:17)
--- NOTE | 2017-04-10 16:31 | ECHOCARDIOGRAM REPORT ---
*NOTICE TO RECEIVING DEMOCRAT AGENCY This information is strictly Confidential and protected under [place] law. [place] law prohibits you from making any further disclosure of this information unless further disclosure is expressly permitted by the written consent of the person to whom it pertains or is authorized by law. A general authorization for the release of medical or other information is not sufficient for this purpose. Hospital accepts no responsibility if the information is made available to any other person, INCLUDING THE PATIENT. Interpretation Summary * Name: GEOVANY FRANCOIS Study Date: 04/10/2017 03:23 PM BP: 158/103 mmHg * Patient Location: [facility]– [place] HR: 61 * : 1955 (M/d/yyyy) Gender: Female Height: 68 in * Age: 61 yrs Ethnicity: CA Weight: 183 lb * Ordering Physician: Tho Grimes * Referring Physician: Self, Referred * Performed By: Saida Oviedo RDCS * * Reason For Study: CHEST PAIN * BSA: 2.0 m2 * -- Conclusions -- * The left ventricle is hyperdynamic. * No regional wall motion abnormalities noted. * There is severe concentric left ventricular hypertrophy. * The echo findings are consistent with hypertrophic cardiomyopathy. * Ejection Fraction = >70 %. * There is mild mitral regurgitation. Procedure Details * A complete two-dimensional transthoracic echocardiogram was performed (2D, M-mode, Doppler and color flow Doppler). Left Ventricle * The left ventricular cavity is small. * There is severe concentric left ventricular hypertrophy. * The echo findings are consistent with hypertrophic cardiomyopathy. * Ejection Fraction = >70 %. * The left ventricle is hyperdynamic. * No regional wall motion abnormalities noted. Right Ventricle * The right ventricle is grossly normal size. * The right ventricular systolic function is normal as assessed by tricuspid annular plane systolic excursion (TAPSE) (normal >1.5 cm). Atria * The left atrial size is normal. * Right atrial size is normal. * No ASD detected; PFO is not assessed. Mitral Valve * The mitral valve is normal. * There is systolic anterior motion of the mitral valve. * There is no mitral valve stenosis. * There is mild mitral regurgitation. Tricuspid Valve * The tricuspid valve anatomy is normal. * There is no tricuspid stenosis. * There is trace tricuspid regurgitation. Aortic Valve * The aortic valve is normal in structure and function. * No hemodynamically significant valvular aortic stenosis. * No aortic regurgitation is present. Pulmonic Valve * The pulmonary valve is not well seen, but the Doppler examination is normal without significant regurgitation or stenosis. Great Vessels * The aortic root is normal size. * The pulmonary artery is not well visualized, but is probably normal size. Pericardium/Pleural * There is no pericardial effusion. Great Vessels * Normal inferior vena cava size and collapsability with sniff indicates a normal right atrial pressure of 3 mmHg Left Ventricular Diastolic Function * Grade I diastolic dysfunction, (abnormal relaxation pattern). MMode 2D Measurements and Calculations IVSd 2.1 cm IVSs 2.6 cm LVIDd 4.0 cm LVIDs 2.2 cm LVPWd 1.7 cm LVPWs 2.4 cm IVS/LVPW 1.2 FS 45.3 % EDV(Teich) 71.8 ml ESV(Teich) 16.5 ml EF(Teich) 77.1 % EDV(cubed) 66.1 ml ESV(cubed) 10.8 ml EF(cubed) 83.6 % % IVS thick 25.3 % % LVPW thick 41.9 % LV mass(C)d 348.4 grams LV mass(C)dI 177.0 grams/m\S\2 LV mass(C)s 311.2 grams LV mass(C)sI 158.1 grams/m\S\2 SV(Teich) 55.3 ml SI(Teich) 28.1 ml/m\S\2 SV(cubed) 55.2 ml SI(cubed) 28.1 ml/m\S\2 Ao root diam 2.7 cm Ao root area 5.7 cm\S\2 LA dimension 4.3 cm LA/Ao 1.6 LVAd ap4 27.2 cm\S\2 LVLd ap4 8.5 cm EDV(MOD-sp4) 73.5 ml EDV(sp4-el) 73.9 ml LVAs ap4 11.5 cm\S\2 LVLs ap4 6.6 cm ESV(MOD-sp4) 18.5 ml ESV(sp4-el) 17.0 ml EF(MOD-sp4) 74.9 % EF(sp4-el) 76.9 % LVAd ap2 22.0 cm\S\2 LVLd ap2 7.6 cm EDV(MOD-sp2) 53.5 ml EDV(sp2-el) 54.1 ml LVAs ap2 9.9 cm\S\2 LVLs ap2 6.5 cm ESV(MOD-sp2) 13.4 ml ESV(sp2-el) 12.9 ml EF(MOD-sp2) 74.9 % EF(sp2-el) 76.2 % LVLd %diff -11.29 % EDV(MOD-bp) 67.4 ml LVLs %diff -1.54 % ESV(MOD-bp) 15.8 ml EF(MOD-bp) 76.5 % SV(MOD-sp4) 55.0 ml SI(MOD-sp4) 28.0 ml/m\S\2 SV(MOD-sp2) 40.1 ml SI(MOD-sp2) 20.4 ml/m\S\2 SV(MOD-bp) 51.6 ml SI(MOD-bp) 26.2 ml/m\S\2 SV(sp4-el) 56.8 ml SI(sp4-el) 28.9 ml/m\S\2 SV(sp2-el) 41.3 ml SI(sp2-el) 21.0 ml/m\S\2 Doppler Measurements and Calculations MV E max sanaz 71.1 cm/sec MV A max sanaz 93.2 cm/sec MV E/A 0.76 MV dec time 0.23 sec Ao V2 max 193.4 cm/sec Ao max PG 15.0 mmHg Ao max PG (full) 5.8 mmHg LV V1 max PG 9.1 mmHg LV V1 max 150.9 cm/sec TR max sanaz 253.1 cm/sec
[2017-04-10 19:41] VITALS: BP 175/87; TEMP 36.7; O2SAT 96
[2017-04-10 20:00] VITALS: O2SAT 96
[2017-04-10 23:20] VITALS: BP 139/73; PULSE 47; TEMP 36.8; O2SAT 98
[2017-04-10 23:48] VITALS: BP 146/76; PULSE 50; TEMP 36.8; O2SAT 96
[2017-04-11] VITALS (9 sets, daily range): BP systolic 122–154; BP diastolic 67–73; PULSE 47–58; TEMP 36.7–37.3; O2SAT 94–98
[2017-04-11] MEDS: SODIUM CHLORIDE 0.9% 1000ML 1,000 ML IV SCH ×2 (01:38→11:02)
[2017-04-11 06:25] LABS: HEMATOCRIT 36.7 % (37-47); MEAN CELL VOLUME 93.6 fL (80-100); MEAN CORPUSCULAR HEMOGLOBIN 31.9 pg (25-34); MEAN CORPUSCULAR HGB CONC 34.1 g/dl (32-36); MEAN PLATELET VOLUME 10.7 fL (7.4-10.4); PLATELET COUNT 155 K/uL (130-400); RED BLOOD COUNT 3.92 M/uL (4.2-5.4); WHITE BLOOD COUNT 4.28 K/uL (4.8-10.8)
[2017-04-11 07:02] LABS: BUN/CREATININE RATIO 16.2 (10-20); CALCIUM 8.4 mg/dl (8.5-10.1); CREATININE 0.75 mg/dl (0.60-1.20); POTASSIUM 3.9 mmol/L (3.5-5.1)
[2017-04-11 07:05] LABS: CHOLESTEROL/HDL RATIO 2.3
[2017-04-11] MEDS ORDERED: INFLUENZA VIRUS QUAD VACCINE 0.5 ML SYR IM. ONE (08:00)
[2017-04-11] MEDS ORDERED: INFLUENZA ADMINISTRATION CHARGE ONE (08:00)
[2017-04-11] MEDS ORDERED: PNEUMOCOCCAL ADMINISTRATION CHARGE ONE (08:00)
[2017-04-11] MEDS ORDERED: PNEUMOCOCCAL POLYSACCHARIDES 25 MCG/0.5 ML VIAL/SYR IM. ONE (08:00)
--- NOTE | 2017-04-11 08:52 | DIAGNOSTIC IMAGING REPORT ---
KUB CLINICAL HISTORY: 61 years-old Female presenting with Small Bowel Obstruction. TECHNIQUE: Single supine view of the abdomen was obtained. COMPARISON: CT from 04/10/2017. FINDINGS: Moderate stool burden noted throughout the colon. Hyperdensity within the colon likely medication administration. Previously noted dilated small bowel is not apparent as it is not distended with gas. No gross pneumoperitoneum. No calcifications to suggest nephrolithiasis. Osseous structures normal. Lung bases clear. IMPRESSION: 1. Possibly of small bowel gas, nonspecific and limiting evaluation for resolution of small bowel obstruction. 2. Moderate stool burden. Electronically signed by: Edison Tena M.D. 04/11/2017 8:50 AM Dictated Date/Time: 04/11/2017 8:47 AM
--- NOTE | 2017-04-11 09:30 | Surgery Progress Note ---
Surgery Progress Note Date of Service Apr 11, 2017. Subjective + feeling well, + pain controlled, No complaints, No bowel movement, No nausea, No vomiting Sitting up in bed- just returned from KUB. at bedside. No complaints, no new concerns overnight. Objective Vital Signs: Date Time Temp Pulse Resp B/P (MAP) Pulse Ox O2 Delivery O2 Flow Rate FiO2 04/11/17 08:00 98 Room Air 04/11/17 07:51 Room Air 04/11/17 07:26 37.3 53 18 154/73 (100) 98 Room Air 04/11/17 04:48 36.8 47 18 139/73 (95) 98 Room Air 04/11/17 04:00 96 Room Air 04/11/17 00:01 98 Room Air 04/10/17 23:48 36.8 50 18 146/76 (99) 96 Room Air 04/10/17 20:00 96 Room Air 04/10/17 19:41 36.7 18 175/87 (116) 96 Room Air 04/10/17 16:00 95 Room Air 04/10/17 15:15 37.4 60 16 158/74 95 Room Air 04/10/17 14:00 61 20 158/103 96 Room Air 04/10/17 12:07 53 20 149/78 94 Room Air 04/10/17 11:48 52 20 164/69 95 Room Air 04/10/17 11:09 61 04/10/17 11:05 Room Air 04/10/17 10:54 37.3 82 18 217/84 98 Room Air General Appearance: WD/WN, no apparent distress Head: normocephalic, atraumatic Abdomen: non tender, non distended, soft Laboratory Results: Results Past 24 Hours Test 04/10/17 11:15 04/10/17 12:30 04/10/17 18:16 04/11/17 02:52 Range/Units White Blood Count 5.04 4.8-10.8 K/uL Red Blood Count 4.33 4.2-5.4 M/uL Hemoglobin 13.7 12.0-16.0 g/dL Hematocrit 40.0 37-47 % Mean Corpuscular Volume 92.4 80-100 fL Mean Corpuscular Hemoglobin 31.6 25-34 pg Mean Corpuscular Hemoglobin Concent 34.3 32-36 g/dl Platelet Count 177 130-400 K/uL Mean Platelet Volume 10.3 7.4-10.4 fL Neutrophils (%) (Auto) 67.7 % Lymphocytes (%) (Auto) 24.4 % Monocytes (%) (Auto) 6.7 % Eosinophils (%) (Auto) 0.6 % Basophils (%) (Auto) 0.4 % Neutrophils # (Auto) 3.41 1.4-6.5 K/uL Lymphocytes # (Auto) 1.23 1.2-3.4 K/uL Monocytes # (Auto) 0.34 0.11-0.59 K/uL Eosinophils # (Auto) 0.03 0-0.5 K/uL Basophils # (Auto) 0.02 0-0.2 K/uL RDW Standard Deviation 41.8 36.4-46.3 fL RDW Coefficient of Variation 12.2 11.5-14.5 % Immature Granulocyte % (Auto) 0.2 % Immature Granulocyte # (Auto) 0.01 0.00-0.02 K/uL Prothrombin Time 10.5 9.0-12.0 SECONDS Prothromb Time International Ratio 1.0 0.9-1.1 Activated Partial Thromboplast Time 27.0 21.0-31.0 SECONDS Partial Thromboplastin Ratio 1.0 Sodium Level 137 136-145 mmol/L Potassium Level 4.0 3.5-5.1 mmol/L Chloride Level 102 98-107 mmol/L Carbon Dioxide Level 27 21-32 mmol/L Anion Gap 8.0 3-11 mmol/L Blood Urea Nitrogen 14 7-18 mg/dl Creatinine 0.70 0.60-1.20 mg/dl Est Creatinine Clear Calc Drug Dose 95.7 ml/min Estimated GFR () 109.1 Estimated GFR (Non- 94.2 BUN/Creatinine Ratio 19.4 10-20 Random Glucose 100 70-99 mg/dl Calcium Level 9.1 8.5-10.1 mg/dl Total Bilirubin 0.7 0.2-1 mg/dl Direct Bilirubin 0.2 0-0.2 mg/dl Aspartate Amino Transf (AST/SGOT) 31 15-37 U/L Alanine Aminotransferase (ALT/SGPT) 36 12-78 U/L Alkaline Phosphatase 55 45-117 U/L Total Creatine Kinase 198 26-192 U/L Creatine Kinase MB 6.9 0.5-3.6 ng/ml Creatine Kinase MB Ratio 3.5 0-3.0 Troponin I 0.324 0.297 0.319 0-0.045 ng/ml Total Protein 7.5 6.4-8.2 gm/dl Albumin 4.2 3.4-5.0 gm/dl Amylase Level 51 25-115 U/L Lipase 120 73-393 U/L Urine Color YELLOW Urine Appearance CLEAR CLEAR Urine pH >= 9.0 4.5-7.5 Urine Specific [place] 1.014 1.000-1.030 Urine Protein NEG NEG Urine Glucose (UA) NEG NEG Urine Ketones TRACE NEG Urine Occult Blood NEG NEG Urine Nitrite NEG NEG Urine Bilirubin NEG NEG Urine Urobilinogen NEG NEG Urine Leukocyte Esterase NEG NEG Test 04/11/17 05:18 Range/Units White Blood Count 4.28 4.8-10.8 K/uL Red Blood Count 3.92 4.2-5.4 M/uL Hemoglobin 12.5 12.0-16.0 g/dL Hematocrit 36.7 37-47 % Mean Corpuscular Volume 93.6 80-100 fL Mean Corpuscular Hemoglobin 31.9 25-34 pg Mean Corpuscular Hemoglobin Concent 34.1 32-36 g/dl RDW Standard Deviation 42.2 36.4-46.3 fL RDW Coefficient of Variation 12.3 11.5-14.5 % Platelet Count 155 130-400 K/uL Mean Platelet Volume 10.7 7.4-10.4 fL Sodium Level 143 136-145 mmol/L Potassium Level 3.9 3.5-5.1 mmol/L Chloride Level 110 98-107 mmol/L Carbon Dioxide Level 26 21-32 mmol/L Anion Gap 7.0 3-11 mmol/L Blood Urea Nitrogen 12 7-18 mg/dl Creatinine 0.75 0.60-1.20 mg/dl Est Creatinine Clear Calc Drug Dose 88.5 ml/min Estimated GFR () 100.4 Estimated GFR (Non- 86.6 BUN/Creatinine Ratio 16.2 10-20 Random Glucose 84 70-99 mg/dl Calcium Level 8.4 8.5-10.1 mg/dl Triglycerides Level 76 0-150 mg/dl Cholesterol Level 142 0-200 mg/dl HDL Cholesterol 61 mg/dl LDL Cholesterol, Calculated 66 mg/dl VLDL Cholesterol, Calculated 15 mg/dl Cholesterol/HDL Ratio 2.3 KUB CLINICAL HISTORY: 61 years-old Female presenting with Small Bowel Obstruction. TECHNIQUE: Single supine view of the abdomen was obtained. COMPARISON: CT from 04/10/2017. FINDINGS: Moderate stool burden noted throughout the colon. Hyperdensity within the colon likely medication administration. Previously noted dilated small bowel is not apparent as it is not distended with gas. No gross pneumoperitoneum. No calcifications to suggest nephrolithiasis. Osseous structures normal. Lung bases clear. IMPRESSION: 1. Possibly of small bowel gas, nonspecific and limiting evaluation for resolution of small bowel obstruction. 2. Moderate stool burden. Assessment & Plan 61yo female Elevated Troponin, Small Bowel Obstruction on CT scan Patient continues to feel well- no new concerns overnight. Feeling hungry this AM. No BM yet. Remains afebrile. KUB this AM- KUB reviewed and discussed with Dr. Harvey. IMPRESSION: 1. Possibly of small bowel gas, nonspecific and limiting evaluation for resolution of small bowel obstruction. 2. Moderate stool burden. Will advance diet to clear liquids. Awaiting Cardiology consult. Reviewed patient's echocardiogram. General Surgery will continue to follow.
[2017-04-11] MEDS ORDERED: PANTOprazole INJ 40 MG in SYRINGE 0 ML IV SCH (11:00)
--- NOTE | 2017-04-11 15:07 | Discharge Instructions ---
Discharge Instructions Date of Service Apr 11, 2017. Admission Reason for Admission: Elevated Troponin, Small Bowel Obstruction Discharge Discharge Diagnosis / Problem: Small bowel obstruction, elevated troponin Discharge Goals Goal(s): Decrease discomfort, Prevent Disease Progression Activity Recommendations Activity Limitations: per Instructions/Follow-up section . Instructions / Follow-Up Instructions / Follow-Up You were admitted to the hospital due to the findings of a small bowel obstruction on CT scan as well as elevated troponins Your small bowel obstruction appeared to improve after remaining without food. Repeat imaging was unremarkable. We had surgery evaluate you in case you needed to be taken for surgery. An ultrasound of your heart showed Hypertrophic Cardiomyopathy but did not show any other findings. You were seen by Dr. Monge who would like you to follow up with has an outpatient. The case therapist will phone the office to book an appointment. Please phone his office to confirm this Your cholesterol labs showed that they were well controlled. If you have any worsening abdominal pain, back pain, chest pain or palpitations then please come back to the emergency department. Please follow up with your PCP in the next 1-2 weeks Current Hospital Diet Patient's current hospital diet: Regular Diet Discharge Diet Recommended Diet: Regular Diet Pending Studies Studies pending at discharge: no Laboratory Results Lipid Panel Test 04/11/17 05:18 Range/Units Triglycerides Level 76 0-150 mg/dl Cholesterol Level 142 0-200 mg/dl HDL Cholesterol 61 mg/dl Cholesterol/HDL Ratio 2.3 LDL Cholesterol, Calculated 66 mg/dl Medical Emergencies . Who to Call and When: Medical Emergencies: If at any time you feel your situation is an emergency, please call 911 immediately. . Non-Emergent Contact Non-Emergency issues call your: Primary Care Provider, [facility] . . "Provider Documentation" section prepared by Leroy Mims. . VTE Core Measure Inpt VTE Proph given/why not?: SCD's
--- NOTE | 2017-04-11 15:14 | Discharge Summary ---
Discharge Summary Date of Service Apr 11, 2017. (Leroy Mims MD) Discharge Summary Admission Date: Apr 10, 2017 at 12:34 Discharge Date: Apr 11, 2017 Discharge Disposition: Home Principal Diagnosis: Small bowel obstruction, elevated troponins Immunizations: Have You Had Influenza Vaccine: Unknown History of Tetanus Vaccine?: Unknown History of Pneumococcal: Unknown Consultations: Surgery Cardiology (Leroy Mims MD) Medication Reconciliation Continued Medications: Aspirin (Aspirin Ec) 81 Mg Tab 81 MG PO Q2D Atorvastatin (Lipitor) 10 Mg Tab 10 MG PO Q2D, TAB Calcium Carbonate-Vitamin D (Calcium Plus Vitamin D) 1 Cap Cap 2 CAP PO DAILY Fish Oil ([place]-3) 1 Ea Cap 1 CAP PO DAILY, CAP Glucosamine-Chondroitin 500MG/400 Mg (Glucosamine-Chondroitin 500 Mg/400 Mg) 1 Cap Cap 1 CAP PO DAILY Psyllium (Metamucil Fiber) 51.7 % Vinnie 1 DOSE PO DAILY Ranitidine Hcl (Zantac) 150 Mg Tab 150 MG PO PRN, TAB Discharge Exam Patient is without any symptoms overnight Denies any chest pain, palpitations, abdominal pain or back pain. Is tolerating a normal diet without any nausea or vomiting Review of Systems: Constitutional: No fever, No chills, No sweats Respiratory: No cough, No sputum, No shortness of breath Cardiovascular: No chest pain, No edema, No claudication, No palpitations Abdomen: No pain, No nausea, No vomiting, No diarrhea Musculoskeletal: No joint pain, No muscle pain, No swelling Neurologic: No weakness, No numbness/tingling, No balance problems Physical Exam: General Appearance: WD/WN, no apparent distress ENT: hearing grossly normal, pharynx normal Neck: supple, no JVD, no carotid bruits Respiratory/Chest: lungs clear, no respiratory distress, no accessory muscle use Cardiovascular: regular rate, rhythm, no edema, normal peripheral pulses, + systolic murmur (1/6 at RLSB) Abdomen / GI: normal bowel sounds, non tender, soft Extremities: normal inspection, no calf tenderness, no pedal edema Neurologic/Psychiatric: normal mood/affect, oriented x 3 Skin: normal color, warm/dry, no rash (Leroy Mims MD) tolerated regular diet. no chest pain, shortness of breath Review of Systems: Constitutional: No fever Respiratory: No shortness of breath Cardiovascular: No chest pain Abdomen: No pain, No nausea, No vomiting Physical Exam: General Appearance: no apparent distress Respiratory/Chest: lungs clear, no respiratory distress Cardiovascular: regular rate, rhythm Abdomen / GI: normal bowel sounds, non tender, soft Neurologic/Psychiatric: alert, oriented x 3 Skin: warm/dry (Patsy Jernigan M.D.) Hospital Course 61-year-old female here with abdominal pain CT scan suggests small bowel obstruction with incidentally elevated troponin and history of hypertrophic cardiomyopathy Small bowel obstruction, small bowel obstruction found on CT patient made NPO and surgery was consulted patient was given IVF overnight patient improved and repeat KUB without any obstruction patient tolerated diet on day of discharge without any nausea or vomiting Hypertrophic Cardiomyopathy elevated troponins = 0.324, 0.297, 0.319 echo with EF of 70% and showed HOCM total cholesterol 124 LDL 66 HDL 61 EKG = NSR with possible left sided enlargement patient seen by cardiology and discuss case with Dr. Monge and troponins likely elevated due to LVH, ok to discharge continue aspirin, statin GERD continue ranitidine Patient will follow up with PCP and Dr. Monge as outpatient Total Time Spent: Less than 30 minutes This includes examination of the patient, discharge planning, medication reconciliation, and communication with other providers. (Leroy Mims MD) Resident Physician Supervision Note: I independently interviewed and examined the patient and verified the nicolas history and physical, reviewed labs and image studies, discussed the case with the resident Dr. Mims and agree with the findings and care plan. Total Time Spent: Greater than 30 minutes (35) (Patsy Jernigan M.D.) Discharge Instructions Please refer to the electronic Patient Visit Report (Discharge Instructions) for additional information. (Leroy Mims MD) Additional Copies To [place] Monge, ; Bro Oleary M.D.
== END 2017-04-11 16:24 | disposition home or self-care (01) | DRG 389 ==
LOC: C.EDB 10:50 → C.2T 12:34 → ENRESERV 12:51
PROVIDERS: ADMIT Internal Medicine; ATTEND Family Medicine
DX: K56.600 Partial intestinal obstruction, unspecified as to cause (principal); I42.2 Other hypertrophic cardiomyopathy; R74.8 Abnormal levels of other serum enzymes; I51.7 Cardiomegaly; K21.9 Gastro-esophageal reflux disease without esophagitis; E78.00 Pure hypercholesterolemia, unspecified; E78.5 Hyperlipidemia, unspecified; Z79.82 Long term (current) use of aspirin; Z79.899 Other long term (current) drug therapy

== ENCOUNTER → 2017-04-10 | Outpatient (CLI) | payer BC ==
[~2017-04-10] MED LIST: ASPI81TA28 PO; ATOR10TA82 PO; CALCCAP7 PO; GLUC500C60 PO; OMEG10007 PO; PSYL58.636 PO; RANI150T3 PO
== END | disposition home or self-care (01) ==
LOC: C.LAB 09:27
PROVIDERS: ATTEND Student in an Organized Health Care Education/Training Program
DX: R10.9 Unspecified abdominal pain (principal)

== ENCOUNTER 2019-12-05 16:05 | Inpatient (IN) ==
[~2019-12-05 16:05] MED LIST changes: -ASPI81TA28 PO; -ATOR10TA82 PO; -CALCCAP7 PO; +ETOMIDATE 2 MG/ML 20 ML VIAL IV ONE; -GLUC500C60 PO; -OMEG10007 PO; -PSYL58.636 PO; -RANI150T3 PO; +RAPID SEQUENCE INDUCTION BAG ONE; +SUCCINYLCHOLINE CHLORIDE 20 MG/ML 10 ML VIAL IV ONE
[2019-12-05] MEDS ORDERED: SODIUM CHLORIDE 0.9% 500 ML IV SCH (16:15)
[2019-12-05] MEDS ORDERED: LORazepam 2 MG/4 ML VIAL IV STA (16:24)
[2019-12-05] MEDS ORDERED: LORazepam 2 MG/4 ML VIAL ONE (16:25)
[2019-12-05 16:40] LABS: iSTAT Hemoglobin 12.2 g/dl (12.0-16.0); iSTAT Ionized Calcium 1.03 mmol/l (1.12-1.32)
[2019-12-05 16:41] LABS: Hematocrit (blood only) 37.9 % (37-47); Hemoglobin 12.7 g/dL (12.0-16.0); Mean Corpuscular Hemoglobin 32.1 pg (25-34); Mean Corpuscular Hgb Conc 33.5 g/dL (32-36); Mean Corpuscular Volume 95.7 fL (80-100); Mean Platelet Volume 11.2 fL (7.4-10.4); Platelet Count 157 K/uL (130-400); RDW Coefficient of Variation 12.4 % (11.5-14.5); RDW Standard Deviation 43.3 fL (36.4-46.3); Red Blood Count 3.96 M/uL (4.2-5.4); White Blood Count 9.28 K/uL (4.8-10.8)
--- NOTE | 2019-12-05 16:53 | XRay Report ---
SINGLE VIEW CHEST CLINICAL HISTORY: Atypical chest pain. FINDINGS: An AP, portable, supine chest radiograph is obtained. No prior studies are available for co mparison at the time of dictation. The examination is degraded by portable technique and supine posit ioning. An endotracheal tube is in place. The tip projects approximately 5 cm above the christopher. An en teric tube has been placed. The tip projects below the diaphragm over the gastric fundus. Cardiac pad s are in place. The heart is top normal for projection. The pulmonary vasculature is noncongested. Th e lungs and pleural spaces are clear. No pneumothorax is seen. The bony thorax is grossly intact. IMPRESSION: 1. Endotracheal and enteric tubes have been placed as above. 2. The lungs are clear. ACT 112: Negative or not required by law. Electronically signed by: Oswaldo Rubio M.D. 12/05/2019 4:51 PM
[2019-12-05 16:57] LABS: INR 1.2 (0.9-1.1); Prothrombin Time 12.5 Seconds (9.0-12.0)
[2019-12-05] MEDS ORDERED: OPTIRAY 320 125ml IV PRN (16:57)
--- NOTE | 2019-12-05 17:07 | CT Scan Report ---
CT SCAN OF THE BRAIN WITHOUT IV CONTRAST CLINICAL HISTORY: Status post cardiac arrest. Loss of consciousness. COMPARISON STUDY: No priors. TECHNIQUE: Unenhanced axial CT scan of the brain is performed from the vertex to the skull base. A d ose lowering technique was utilized adhering to the principles of ALARA. The skull base was scanned t wice due to motion artifact. The examination is mildly motion degraded. FINDINGS: Endotracheal and enteric tubes are noted on the glass silverer tomogram. Fluid is noted in the pharynx. Brain parenchyma: The brain parenchyma is normal in appearance. There is no hemorrhage, mass effect, or evidence of acute territorial ischemia by CT criteria. Sylvester-white matter differentiation is preser tra. No extra-axial fluid collection is seen. Ventricles, sulci, cisterns: Normal in configuration. Intracranial vasculature: The visualized intracranial vasculature at the skull base is normal in appe arance. Calvarium: Unremarkable. Sinuses and mastoids: The visualized paranasal sinuses are clear. The mastoid air cells are well pneu matized. Orbits: The bony orbits are grossly intact. IMPRESSION: There is no hemorrhage, mass effect, or evidence of acute territorial ischemia by CT sandy light. ACT 112: Negative or not required by law. Electronically signed by: Oswaldo Rubio M.D. 12/05/2019 5:04 PM
[2019-12-05 17:09] LABS: Albumin Level 2.7 gm/dl (3.4-5.0); BUN Creatinine Ratio 14.1 (10-20); Bilirubin,Total 0.4 mg/dl (0.2-1); Est GFR (African American) 56.3; Est GFR (Non-African American) 48.5; Globulin 2.6 gm/dl (2.5-4.0); Total Protein 5.3 gm/dl (6.4-8.2)
--- NOTE | 2019-12-05 17:09 | CT Scan Report ---
CT SCAN OF THE CERVICAL SPINE CLINICAL HISTORY: Loss of consciousness. Status post cardiac arrest. COMPARISON STUDY: No priors. TECHNIQUE: CT scan of the cervical spine is performed from the skull base to the upper thoracic spine . Images are reviewed in the axial, sagittal, and coronal planes. IV contrast was not administered fo r this examination. A dose lowering technique was utilized adhering to the principles of ALARA. CT DOSE: 1715.93 mGy.cm FINDINGS: Skeletal structures: The skeletal structures are osteopenic. There is no evidence of fracture or subl uxation involving the cervical spine. Vertebral body height and alignment are maintained. Anterior os teophytes are seen throughout. The odontoid process and lateral masses are intact. The atlantoaxial a rticulation is preserved noting productive degenerative change. The spinous processes appear intact. Intervertebral discs: Mild disc space narrowing is noted at C5-C6. The remaining disc spaces are pres erved. Central canal: A posterior disc osteophyte complex at C5-C6 may contribute to mild acquired compromis e of the central canal. Soft tissues: The prevertebral and paraspinous soft tissues are within normal limits. Calvarium: The visualized calvarium at the skull base appears intact. Brain parenchyma: Partially visualized brain parenchyma the skull base is within normal limits. Sinuses and mastoids: The visualized paranasal sinuses are clear. The mastoid air cells are well pneu matized. Upper chest: Endotracheal and enteric tubes are in place. Apical lung parenchyma is clear as imaged. IMPRESSION: There is no evidence of fracture or subluxation involving the cervical spine. ACT 112: Negative or not required by law. Electronically signed by: Oswaldo Rubio M.D. 12/05/2019 5:07 PM
[2019-12-05 17:17] LABS: Troponin I 0.383 ng/ml (0-0.045)
[2019-12-05 17:18] LABS: Potassium 3.5 mmol/L (3.5-5.1)
--- NOTE | 2019-12-05 17:21 | CT Scan Report ---
CT ANGIOGRAM OF THE CHEST CLINICAL HISTORY: Cardiac arrest. Loss of consciousness. COMPARISON STUDY: Chest x-ray dated 12/05/2019. TECHNIQUE: Following the IV administration of 119 cc of Optiray 320, CT angiogram of the chest was pe rformed from the upper abdomen to the thoracic inlet utilizing the pulmonary embolus protocol. Images are reviewed in the axial, sagittal, and coronal planes. 3-D MIPS images are created and assessed. I V contrast was administered without complication. A dose lowering technique was utilized adhering to the principles of ALARA. The examination is degraded by motion artifact. There is also streak artifa ct from the arms which could not be elevated above the chest. FINDINGS: Thyroid: Imaged portions of the thyroid gland are normal in size and attenuation. Thoracic aorta: The thoracic aorta is normal in caliber and demonstrates bovine variant arch anatomy. No dissection is seen. Pulmonary vasculature: The pulmonary trunk is normal in caliber. There are no filling defects identif ied in main, lobar, or segmental pulmonary branches to suggest pulmonary embolus. Heart: The heart is normal in top size noting trace pericardial effusion. The left ventricular myocar dium appears thickened. Lungs and pleural spaces: An endotracheal tube terminates above the christopher. Secretions are seen in th e distal trachea and the right mainstem bronchus. Evaluation of the lung parenchyma is degraded by mo tion artifact. There is dense dependent airspace consolidation seen in both lungs. Mild intraoperativ e septal thickening is noted. No pleural effusion is identified. There is no pneumothorax. Mediastinum: There is no mediastinal lymphadenopathy. Mari: Clear. Axillae: There is no axillary lymphadenopathy. Upper abdomen: Enteric tube terminates below the diaphragm. Trace pericolic ascites is noted. Skeletal structures: The skeletal structures are osteopenic. There are acute right anterior 3rd throu gh 5th rib fractures. There are acute left anterior 4th through 6th rib fractures. No lytic or blasti c bony lesions are seen. IMPRESSION: 1. There is no evidence of pulmonary embolus in the main, lobar, or segmental pulmonary arteries. 2. There is dense dependent airspace consolidation seen bilaterally. This likely represents pneumonia versus aspiration pneumonitis. Clinical correlation will be required. 3. The heart is top normal in size and the left ventricular myocardium appears thickened. This is non specific but could be seen in the setting of hypertrophic cardiomyopathy. Consider correlation with e chocardiography. 4. Mild diffuse intralobular septal thickening suggests congestive change. 5. Acute anterior rib fractures are seen bilaterally, likely related to resuscitation. 6. Trace perihepatic ascites. 7. Endotracheal and enteric tubes are in place. ACT 112: Negative or not required by law. Electronically signed by: Oswaldo Rubio M.D. 12/05/2019 5:19 PM
[2019-12-05 17:24] LABS: Appearance Urine Cloudy (Clear); Bacteria Urine Automated 2+ (Negative); Bilirubin Urine Negative (Negative); Blood Urine 3+ (Negative); Color Urine Orange; Epithelial Cell Urine Auto >30 /lpf (0-5); Glucose Urine UA 1+ (Negative); Ketones Urine Negative (Negative); Leukocyte Esterase Urine Trace (Negative); Nitrite Urine Negative (Negative); Specific Gravity Urine 1.018 (1.000-1.030); Urobilinogen Urine Negative (Negative); WBC Urine Automated >30 /hpf (0-5); pH Urine 8.5 (4.5-7.5)
[2019-12-05 17:28] LABS: Protein Urine 4+ (Negative)
[2019-12-05 17:33] LABS: Sulfosalicylic Acid Urine Positive (Negative)
[2019-12-05] MEDS ORDERED: HEPARIN (PORCINE) 1000 UNIT/ML 10 ML (CATH LAB USE ONLY) ONE (17:34)
[2019-12-05] MEDS ORDERED: MIDAZOLAM HCL 1 MG/ML 2ML VIAL ONE ×2 (17:35→18:20)
[2019-12-05] MEDS ORDERED: NITROGLYCERIN/D5W 100MCG/ML 20ML SYR ONE (17:35)
[2019-12-05] MEDS ORDERED: fentaNYL citrate 100 MCG/2 ML VIAL ONE (17:35)
[2019-12-05] MEDS ORDERED: NiCARDipine HCL INJ 2.5 MG/ML 10 ML AMP ONE (17:35)
--- NOTE | 2019-12-05 17:37 | Emergency Department Note ---
History of Present Illness General Chief Complaint: Cardiac Arrest/CPR Stated Complaint: CARDIAC ARREST Source: EMS Mode of arrival: EMS Limitations: altered mental status History of Present Illness Provider complaint: collapsed during activity Onset (ago): hour(s) less than 1 Timing confirmed by: EMS AED applied by bystander/rn plasma center: Yes (Police) Shock advised: Yes Number of shocks delivered: 1 Downtime before ACLS arrival (mins): 10 Initial findings in the field: unresponsive, no pulse and other rhythm (Asystole) ROSC in the field: Yes Known history of: other (Hypertrophic cardiomyopathy (HOCM)) This is a 64-year-old female who was brought in by EMS. EMS report that the patient was out for a walk and collapsed. It is uncertain who was with the patient, if anyone. EMS reported that the patient was initially evaluated by police who placed an AED. AED shocked the patient once. The patient was found to be in asystole when EMS arrived. The police were performing CPR. The pat ient was treated with 3 mg of IV epinephrine and she was then found to be in PEA after a couple of minutes. She received a total 5 mg of IV epinephrine in route here. Upon her arrival here, CPR was in progress with Nader machine. My initial evaluation reveals that the patient does have pulseless. CPR was discontinued. The patient was further evaluated here. No additional information was obtained by EMS or by family. The did eventually come to the ED. He was unaware of the occurrence. Home Medications Home Medications Medication Instructions Recorded Confirmed Type ASPIRIN (ASPIRIN EC) 81 mg PO Q2D #0 04/10/17 History ATORVASTATIN (LIPITOR) 10 mg PO Q2D #0 tab 04/10/17 History CALCIUM CARBONATE-VITAMIN D 2 cap PO DAILY #0 04/10/17 History (CALCIUM PLUS VITAMIN D) Fish Oil (Emerson-3) 1 cap PO DAILY #0 cap 04/10/17 History GLUCOSAMINE-CHONDROITIN 500MG/400 1 cap PO DAILY #0 04/10/17 History MG (GLUCOSAMINE-CHONDROITIN 500 MG/400 MG) Psyllium (Metamucil Fiber) 1 dose PO DAILY #0 04/10/17 History Ranitidine Hcl (ZANTAC) 150 mg PO PRN #0 tab 04/10/17 History Allergies Allergy/AdvReac Type Severity Reaction Status Date / Time No Known Allergies Allergy Unknown Verified 12/05/19 17:16 Past Med/Surg History Social History Smoking Status: Unknown if ever smoked Review of Systems A total of 10 systems reviewed and were otherwise negative Physical Exam Vital Signs: Vital Signs - 24 hr 12/05/19 16:07 12/05/19 16:13 12/05/19 16:15 Pulse Rate 98 H 92 H 88 Pulse Rate from Sp O2 Sensor Respiratory Rate 14 Respiratory Effort / Characteristics Blood Pressure 169/141 H 109/75 Blood Pressure Sharmila n 150 86 Blood Pressure Pos ition Lying Pulse Oximetry 94 Oxygen Delivery Me thod Ambu-Bag Fraction of Inspir ed Oxygen Sepsis Recent Feve r Within 48 Hours No Sepsis New/Unexpla ined Change in Men liz Status No Sepsis Action Take n by Nursing No Action Required End-Tidal CO2 Pulse Oximetry Pos t Tiitration 12/05/19 16:17 12/05/19 16:20 12/05/19 16:25 Pulse Rate 90 87 81 Pulse Rate from Sp O2 Sensor 90 88 Respiratory Rate 17 Respiratory Effort / Characteristics Blood Pressure 109/75 113/63 Blood Pressure Sharmila n 83 78 Blood Pressure Pos ition Pulse Oximetry 84 L 90 98 Oxygen Delivery Me thod Fraction of Inspir ed Oxygen 80 Sepsis Recent Feve r Within 48 Hours Sepsis New/Unexpla ined Change in Men liz Status Sepsis Action Take n by Nursing End-Tidal CO2 29 36 43 Pulse Oximetry Pos t Tiitration 12/05/19 16:30 12/05/19 16:31 12/05/19 16:40 Pulse Rate 83 82 86 Pulse Rate from Sp O2 Sensor 71 82 86 Respiratory Rate Respiratory Effort / Characteristics Blood Pressure 105/67 130/76 Blood Pressure Sharmila n 76 82 Blood Pressure Pos ition Pulse Oximetry 94 100 100 Oxygen Delivery Me thod Mechanical Vent Fraction of Inspir ed Oxygen Sepsis Recent Feve r Within 48 Hours Sepsis New/Unexpla ined Change in Men liz Status Sepsis Action Take n by Nursing End-Tidal CO2 43 37 37 Pulse Oximetry Pos t Tiitration 99 12/05/19 16:45 12/05/19 16:50 Pulse Rate 80 Pulse Rate from Sp O2 Sensor 80 Respiratory Rate Respiratory Effort / Characteristics Mechanically Venti lated Blood Pressure 101/64 Blood Pressure Sharmila n 70 Blood Pressure Pos ition Pulse Oximetry 100 Oxygen Delivery Me thod Fraction of Inspir ed Oxygen Sepsis Recent Feve r Within 48 Hours Sepsis New/Unexpla ined Change in Men liz Status Sepsis Action Take n by Nursing End-Tidal CO2 25 Pulse Oximetry Pos t Tiitration Physical Exam: CONSTITUTIONAL/VITAL SIGNS: Reviewed / noted above. GENERAL: Patient is being bagged with BVM. She does have some spontaneous respi rations and is clenching down on an oral airway. INTEGUMENTARY: Warm, dry, and pale. HEAD: Normocephalic. EYES: without scleral icterus or trauma. ENT/OROPHARYNX: clear and moist. RESPIRATORY: Lungs clear and equal. CARDIOVASCULAR: Regular rate and rhythm. GI/ABDOMEN: Soft . EXTREMITIES: Warm and well perfused. BACK: Visually normal. NEUROLOGICAL: The patient is breathing above the vent. She was seen to move her upper extremities at times. PSYCHIATRIC: Unable to assess. MUSCULOSKELETAL: Normally developed. TRIAGE NURSING DOCUMENTATION REVIEWED. Procedures ABG Interpretation ABG Interpretation 1: ABG Results: pH is 7.24, PCO2 is 40 and PaO2 is 119 Interpretation: metabolic acidosis Intubation Time out performed: Yes sedative: Etomidate Mg Given: 20 paralytic: Succinylcholine Mg Given: 120 Laryngoscope: fiber optic video scope ET Tube Size: 7.5 ET Tube Uncuffed: Yes Tube Secured Depth (cm): 23 Tube Secured Location: teeth Tube Placement Confirmation: visualized tube passing through cords, equal breath sounds bilaterally, no breath sounds over epigastrium and confirmation by capnometry Patient Tolerated Procedure: well Intubation Complications: none Course Administered Medications Ioversol (Optiray 320 125ml) 119 ml IV ONCE PRN PRN Reason: Interaction Checking Stop: 12/09/19 16:56 Last Admin: 12/05/19 16:57 Dose: 119 ml Documented by: [id number] Discontinued Medications Sodium Chloride (Nss) 500 mls @ 999 mls/hr IV .Q31M SAMPSON Stop: 12/05/19 16:45 Last Admin: 12/05/19 17:03 Dose: 999 mls/hr Documented by: [id number] Lorazepam (Ativan) 2 mg in 4 mls @ 4 mls/min IV NOW STA Stop: 12/05/19 16:25 Last Admin: 12/05/19 17:03 Dose: 4 mls/min Documented by: [id number] Lorazepam (Ativan) Confirm Administered Dose 2 mg .ROUTE .STK-MED ONE Stop: 12/05/19 16:26 Last Admin: 12/05/19 17:03 Dose: Not Given Documented by: [id number] Miscellaneous () Confirm Administered Dose 1 ea .ROUTE .STK-MED ONE Stop: 12/05/19 16:00 Last Admin: 12/05/19 17:03 Dose: 1 ea Documented by: [id number] Medical Decision Making Differential Diagnosis + Cardiopulmonary Resuscitation-successful, + Cardiopulmonary Resuscitation-unsuccessful, + acute coronary symdrome, + pulmonary embolism, + hyperkalemia, + tension pneumothorax, + hypovolemia, + acidosis and + toxicol ogic Medical Records Attestation: I reviewed the patient's medical records. Home Medications Current Medication List: was personally reviewed by me Laboratory Data Attestation: I reviewed the patient's lab results. Result diagrams: 12/05/19 16:28 12/05/19 16:18 Lab Results 12/05/19 12/05/19 12/05/19 Range/Units 16:18 16:28 16:28 WBC 9.28 (4.8-10.8) K/uL RBC 3.96 L (4.2-5.4) M/uL Hgb 12.7 (12.0-16.0) g/dL POC Hgb (12.0-16.0) g/dl Hct 37.9 (37-47) % POC Hct (37-47) % MCV 95.7 (80-100) fL MCH 32.1 (25-34) pg MCHC 33.5 (32-36) g/dL RDW Std Deviation 43.3 (36.4-46.3) fL RDW Coeff of Franchesca 12.4 (11.5-14.5) % Plt Count 157 (130-400) K/uL MPV 11.2 H (7.4-10.4) fL PT 12.5 H (9.0-12.0) Seconds INR 1.2 H (0.9-1.1) APTT 27.0 (21.0-31.0) Seconds PTT Ratio 1.0 POC Sodium (135-144) mmol/L Sodium 145 (136-145) mmol/L POC Potassium (3.3-5.0) mmol/L Potassium 3.5 (3.5-5.1) mmol/L POC Chloride (101-112) mmol/L Chloride 112 H (98-107) mmol/L Carbon Dioxide 20 L (21-32) mmol/L POC Total CO2 (24-31) mmol/L Anion Gap 13.0 H (3-11) POC Anion Gap (16-25) mmol/L POC BUN (7-18) mg/dl BUN 17 (7-18) mg/dl Creatinine 1.19 (0.6-1.2) mg/dl POC Creatinine (0.6-1.3) mg/dl Est Cr Clr Drug Dosing 54.0 ml/min Est GFR ( Amer) 56.3 Est GFR (Non-Af Amer) 48.5 BUN/Creatinine Ratio 14.1 (10-20) Glucose 215 H (70-99) mg/dl POC Glucose (other) (70-99) mg/dl Lactate (0.4-2.0) mmol/L Calcium 7.0 L (8.5-10.1) mg/dl POC Ioniz Calcium Germain (1.12-1.32) mmol/l Total Bilirubin 0.4 (0.2-1) mg/dl ALT 823 H (12-78) U/L Alkaline Phosphatase 54 (45-117) U/L Troponin I 0.383 H* (0-0.045) ng/ml Total Protein 5.3 L (6.4-8.2) gm/dl Albumin 2.7 L (3.4-5.0) gm/dl Globulin 2.6 (2.5-4.0) gm/dl Albumin/Globulin Ratio 1.0 (0.9-2) Lipase 135 (73-393) U/L Specimen Hemolysis 12/05/19 12/05/19 Range/Units 16:28 16:28 WBC (4.8-10.8) K/uL RBC (4.2-5.4) M/uL Hgb (12.0-16.0) g/dL POC Hgb 12.2 (12.0-16.0) g/dl Hct (37-47) % POC Hct 36 L (37-47) % MCV (80-100) fL MCH (25-34) pg MCHC (32-36) g/dL RDW Std Deviation (36.4-46.3) fL RDW Coeff of Franchesca (11.5-14.5) % Plt Count (130-400) K/uL MPV (7.4-10.4) fL PT (9.0-12.0) Seconds INR (0.9-1.1) APTT (21.0-31.0) Seconds PTT Ratio POC Sodium 141 (135-144) mmol/L Sodium (136-145) mmol/L POC Potassium 4.0 (3.3-5.0) mmol/L Potassium (3.5-5.1) mmol/L POC Chloride 105 (101-112) mmol/L Chloride (98-107) mmol/L Carbon Dioxide (21-32) mmol/L POC Total CO2 21 L (24-31) mmol/L Anion Gap (3-11) POC Anion Gap 20.0 (16-25) mmol/L POC BUN 22 H (7-18) mg/dl BUN (7-18) mg/dl Creatinine (0.6-1.2) mg/dl POC Creatinine 1.0 (0.6-1.3) mg/dl Est Cr Clr Drug Dosing ml/min Est GFR ( Amer) Est GFR (Non-Af Amer) BUN/Creatinine Ratio (10-20) Glucose (70-99) mg/dl POC Glucose (other) 218 H (70-99) mg/dl Lactate 6.6 H* (0.4-2.0) mmol/L Calcium (8.5-10.1) mg/dl POC Ioniz Calcium Germain 1.03 L (1.12-1.32) mmol/l Total Bilirubin (0.2-1) mg/dl ALT (12-78) U/L Alkaline Phosphatase (45-117) U/L Troponin I (0-0.045) ng/ml Total Protein (6.4-8.2) gm/dl Albumin (3.4-5.0) gm/dl Globulin (2.5-4.0) gm/dl Albumin/Globulin Ratio (0.9-2) Lipase (73-393) U/L Specimen Hemolysis Imaging Data Radiologist's Impression: CT scan of the chest: IMPRESSION: 1. There is no evidence of pulmonary embolus in the main, lobar, or segmental pulmonary arteries. 2. There is dense dependent airspace consolidation seen bilaterally. This likely represents pneumonia versus aspiration pneumonitis. Clinical correlation will be required. 3. The heart is top normal in size and the left ventricular myocardium appears thickened. This is nonspecific but could be seen in the setting of hypertrophic cardiomyopathy. Consider correlation with echocardiography. 4. Mild diffuse intralobular septal thickening suggests congestive change. 5. Acute anterior rib fractures are seen bilaterally, likely related to resuscitation. 6. Trace perihepatic ascites. 7. Endotracheal and enteric tubes are in place. CT scan of the cervical spine:IMPRESSION: There is no evidence of fracture or subluxation involving the cervical spine. CT head: IMPRESSION: There is no hemorrhage, mass effect, or evidence of acute territorial ischemia by CT criteria. Chest x-ray:IMPRESSION: 1. Endotracheal and enteric tubes have been placed as above. 2. The lungs are clear. ECG Data Attestation: I personally reviewed and interpreted this ECG as follows: Indication: other (Status post cardiac arrest) Rate (beats per minute): 88 Rhythm: normal sinus Findings: + T-wave inversion (Lateral) and + prolonged QT; no PVC and no ST elevation Change: no significant change (Apr 10, 2017) Blood Pressure Blood Pressure Findings: Normal blood pressure MDM Narrative This is a 64-year-old female who was brought in by EMS. EMS report that the patient was out for a walk and collapsed. It is uncertain who was with the patient, if anyone. EMS reported that the patient was initially evaluated by police who placed an AED. AED shocked the patient once. The patient was found to be in asystole when EMS arrived. The police were performing CPR. The patient was treated with 3 mg of IV epinephrine and she was then found to be in PEA after a couple of minutes. She received a total 5 mg of IV epinephrine in route here. Upon her arrival here, CPR was in progress with Nader machine. My initial evaluation reveals that the patient does have pulseless. CPR was discontinued. The patient was further evaluated here. No additional information was obtained by EMS or by family. The did eventually come to the ED. He was unaware of the occurrence. When he arrived, he did report that the patient has a history of HOCM. A twelve-lead EKG shows a normal sinus rhythm at a rate of 88 with T wave inversions in the lateral leads and a slightly prolonged QTC. This was compared to April 10, 2017. The EKG looks slightly different although the T wave inversions appear to be old. The patient had a chest x-ray here. Endotracheal tube was in good position. This intubati on was performed here by myself. CT scan of the brain and cervical spine did not show acute issues. CT scan of the chest did suggest possible aspiration bilaterally as well as cardiomegaly and acute anterior rib fractures bilaterally. CBC and chemistry panel was unremarkable. Glucose is 215. Lactic acid level was 6.6. AST and ALT are elevated. Troponin is elevated at 0.383. An ABG was for performed after intubation. This reveals a metabolic acidosis with normal PCO2 and normal oxygenation on 100%. The patient received some IV Ativan to help with sedation. The patient remained clinically stable during her ED stay. We did initiate hypothermia protocol. I did speak with Dr. Arthur dejesus bout the patient. He will take the patient to the [facility] for further cardiac evaluation. Impression & Plan Cardiac arrest, Hypertrophic cardiomyopathy, Fracture, ribs, Aspiration into airway Critical Care Time Critical Care Time: Yes Total Critical Care Time: 90 I have personally spent 90 minutes of critical care time in the direct management of this patient. This includes bedside care, interpretation of diagnostic studies, and testing, discussion with consultants, patient, and family members, and other required patient management activities. This 90 minutes is in excess of all separately billable procedures. Discharge Plan Visit Data Chief Complaint: Cardiac Arrest/CPR Stated Complaint: CARDIAC ARREST ED Provider: Bernardo Bryan Discharge Problem: Cardiac arrest, Hypertrophic cardiomyopathy, Fracture, ribs, Aspiration into airway Patient Disposition: Admitted As Inpatient Forms Stand Alone Forms: [facility] Prescriptions Prescriptions: No Action ASPIRIN (ASPIRIN EC) 81 MG tablet 81 mg PO Q2D Qty: 0 RF: 0 ATORVASTATIN (LIPITOR) 10 MG tablet 10 mg PO Q2D Qty: 0 RF: 0 CALCIUM CARBONATE-VITAMIN D (CALCIUM PLUS VITAMIN D) 1 CAP capsule 2 cap PO DAILY Qty: 0 RF: 0 Fish Oil (Emerson-3) 1 EA capsule 1 cap PO DAILY Qty: 0 RF: 0 GLUCOSAMINE-CHONDROITIN 500MG/400 MG (GLUCOSAMINE-CHONDROITIN 500 MG/400 MG) 1 CAP capsule 1 cap PO DAILY Qty: 0 RF: 0 Psyllium (Metamucil Fiber) 51.7 % NED 1 dose PO DAILY Qty: 0 RF: 0 Ranitidine Hcl (ZANTAC) 150 MG tablet 150 mg PO PRN Qty: 0 RF: 0 Referrals Referrals: Bro Oleary MD [Primary Care Provider] -
[2019-12-05 17:38] LABS: RBC Urine Automated >30 /hpf (0-4)
[2019-12-05] MEDS ORDERED: LORazepam 1 MG/2 ML VIAL IV STA (17:40)
[2019-12-05 17:44] LABS: Basophils # (auto) 0.02 K/uL (0-0.2); Basophils % (auto) 0.2 %; Echinocytes 1+; Eosinophils # (auto) 0.04 K/uL (0-0.5); Eosinophils % (auto) 0.4 %; Immature Granulocytes # (auto) 0.15 K/uL (0.00-0.02); Immature Granulocytes % (auto) 1.6 %; Lymphocytes # (auto) 4.87 K/uL (1.2-3.4); Lymphocytes % (auto) 52.5 %; Monocytes # (auto) 0.31 K/uL (0.11-0.59); Monocytes % (auto) 3.3 %; Neutrophils # (auto) 3.89 K/uL (1.4-6.5)
--- OUTSIDE RECORDS SUMMARY | 2019-12-05 18:40 | External Medical Summary | Continuity of Care Document ---
:1955 Author Name Marci Peng, Provider Address Unavailable Unavailable , Care Team Providers Name Role Phone Unavailable Unavailable Unavailable GÉNESIS FRAZIER Unavailable Unavailable Unavailable Unavailable Unavailable Problems Encounter for routine gynecological examination (V72.31) (Z0 1.419) Hypercholesterolemia (272.0) (E78.00) Postmenopausal bleeding (627.1) (N95.0) Dyspareunia (625.0) Urethral caruncle (599.3) (N36.2) Hypertrophic cardiomyopathy (425.18) (I42.2) Allergies and Adverse Reactions No Known Drug Allergies (Allergy) Medications Caltrate 600 TABS; Take 1 tablet twice daily , M.D. Refills: 0 Fish Oil CAPS; Take 1 capsule twice daily , M.D. Refills: 0 Aspirin Low Dose 81 MG TABS; TAKE 1 TABLET Every other day , M.D. Refills: 0 Glucosamine Chondroitin TABS; Take 1 tablet twice daily , M. D. Refills: 0 Lipitor 10 MG Oral Tablet; TAKE 1 TABLET Every other day , M .D. Refills: 0 Procedures History of Tubal Ligation Status: Comple cheryl History of Vaginal Hysterectomy Status: Completed History of Oral Surgery Tooth Extraction Status: Completed Immunizations Immunizations not documented Family History aunt Family history of Colon Cancer (V16.0) Status: Active Sister Family history of Alcoholism Status: Active Social History - Smoking Status Tobacco smoking consumption unknown Never smoked tobacco Plan of Treatment Planned Observations Planned Goals not documented Results No Known Results Results not documented
[2019-12-05] MEDS ORDERED: ICU PROTOCOL FOR HYPERGLYCEMIA PRN ×2 (18:52→19:14)
[2019-12-05] MEDS ORDERED: SODIUM CHLORIDE 0.9% 1000ML 1,000 ML IV SCH (19:00)
--- NOTE | 2019-12-05 19:08 | Cardiac Catheterization ---
[facility] Data: [facility] Cardiac Status Clinical evaluation leading to the procedure CAD Presenation: Sx unlikely to be ischemic (Cardiac arrest) Cardiogenic Shock within 24 Hours: No Cardiac Arrest within 24 Hours: Yes Imaging Studies Past 6 Months: No Stress Studies Past 6 Months: No Diagnostic Physicians Name: Evin Gibson MD Status: Emergency Closure Device Percutaneous Entry Location: Radial Closure Device: Radial Band Recommendations: Medical Therapy and/or Counseling Intraprocedure Events Significant Disection: No Perforation: No Cardiac Cath Procedure Full Procedure Date December 05, 2019 Pre-Procedure Diagnosis Pre-Procedure Diagnosis: Cardiothoracic Symptom (Cardiac arrest) AUC Score AUC Score: 7 Post-Procedure Diagnosis Post-Procedure Diagnosis: Moderate CAD and Normal Intracardiac Pressures Procedure(s) Performed Procedure(s) Performed: Coronary Angiography, Left Heart Cath and Procedure (Central venous catheter/cooling catheter placement) Crew Person Evin Gibson MD Sales Clerk Supervisor(s) Lorena Estimated Blood Loss Estimated Blood Loss: 10 Medication(s) Medication(s): Fentanyl, Lidocaine 1%, Nicardipine, Nitroglycerin and Versed Summary of Findings Indication: 64-year-old woman with a history of hypertrophic cardiomyopathy followed by Dr. Cornelius for her cardiac care. Had out of hospital arrest today while walking. Initial shockable rhythm by ED. Prolonged PEA arrest in route with ROSC noted on arrival to ED. ECG with reported lateral ST depressions. Access: 6 Fr slender right radial artery under ultrasound guidance, 8Fr cooling catheter placed to right CFV under ultrasound guidance Catheters: Goode Findings: LM -Short, 20% ostial LAD -medium caliber vessel which wraps around apex. Mid LAD after first diagonal with 50% stenosis. Medium caliber second diagonal with 60 to 70% ostial stenosis Circumflex -medium caliber vessel, luminal irregularities. Gives off to OM's and a distal left PLB. RCA -dominant, large caliber vessel, 40 to 50% ostial stenosis improved with va sodilators. Remainder vessel without significant disease LVEDP -10 Arterial Closure: TR band Summary: 1. Moderate nonobstructive coronary artery disease -40 to 50% ostial RCA 20% ostial left main 50% mid LAD 60 to 70% ostial second diagonal 2. Normal intracardiac filling pressure 3. Successful central venous/cooling catheter placement Recommendations: ERNESTO-3 flow throughout and no evidence of high-grade acute coronary lesions. No disease to explain out of hospital cardiac arrest. Further cardiac evaluation/possible ICD per recommendations of her primary road monkey Dr. Monge. Continue aspirin, statin and ASCVD risk factor modification. Hemodynamics Rest Ao:: 122/66/90 Final Ao: 122/69/97 LV: 109/10 Recommendations Recommendations: Medical Therapy and/or Counseling Specimens Specimens: None Radiation Exposure (mGy) 995 Contrast (mls) 50 Fluids (cc crystalloids) Fluids (cc crystalloids): 60 Drains Drains: None Anesthesia Moderate Procedural Complication(s) None Disposition ICU I attest to the content of the Intraoperative Record and any orders documented therein. Any exceptions are noted below. [facility] Card Cath Procedure Codes Cardiac Catheterization Procedure 1: Cardiovascular Cath Procedures: 89353 Coronaries and LHC (+/-LV) Therapeutic Services & Ancillary Proc Procedure 1: Cardiovascular Tx and Anc Procedures: 36184 Ultrasonic Guidance Vascular Access Procedure 2: Cardiovascular Tx and Anc Procedures: 32764 Ultrasonic Guidance Vascular Access Procedure 3: Cardiovascular Tx and Anc Procedures: 36402 Insertion Central Venous Catheter Moderate Sedation Procedure 1: Sedation/Anesthesia: 19904 Mod Sedation by the same physician;Init15 Min Child Age 5 & Up PG Care Time/CCT Total # of Minutes Spent Total Time Spent with Patient: Total time spent is greater than 50% in coordination of care (as documented) at patient's floor/unit and/or counseling patient:
[2019-12-05] MEDS ORDERED: ALBUT/IPRATROP 3MG/0.5MG NEB 3 ML VIAL INH PRN (19:14)
[2019-12-05] MEDS ORDERED: BusPIRone 15 MG TAB NG PRN (19:17)
[2019-12-05] MEDS ORDERED: PROPOFOL BOLUS FROM BAG IV PRN (19:17)
[2019-12-05] MEDS ORDERED: FENTANYL BOLUS FROM BAG IV PRN (19:17)
[2019-12-05] MEDS ORDERED: TRAMADOL HCL 50 MG TABLET NG PRN (19:17)
[2019-12-05] MEDS ORDERED: ACETAMINOPHEN 650 MG SUPP PR PRN (19:17)
[2019-12-05] MEDS ORDERED: STAT IV Infusion **Titration per Protocol STA (19:17)
--- NOTE | 2019-12-05 19:24 | Critical Care Consultation ---
Date of Consultation December 05, 2019 Assessment & Plan (1) Cardiac arrest: Reason Critically Ill: 64-year-old female with in field V. fib arrest and shocked x1 with AED, converted to PEA and ROSC achieved in the emergency department. Taken to [facility] [employer] with no indication for intervention. Patient not following commands, now undergoing 24-hour therapeutic hypothermia. Neuro - Anoxic brain injurypatient unresponsive following ROSC after cardiac arrest -Ventricular dysrhythmia and candidate for therapeutic hypothermia which has been initiated -Therapeutic hypothermia protocol -CT head negative for acute process -EEG in a.m. -Sedation: Propofol and fentanyl Cardiac - Cardiac arrestpatient with unwitnessed arrest while going for a walk, story unclear of who discovered patient and if she received CPR prior to first responders arrival -Please on scene attached AED and received shock x1 followed by CPR. AED report revealed V. fib arrest, attached to chart. -Patient was in PEA with EMS and was attached to the [facility] and brought out to the ED and converted to sinus rhythm with CPR and epi. 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 -Maximize electrolytes -Continuous monitoring on telemetry -Cardiology consulted, will follow up recommendations. It is likely that patient will need ICD if she recovers Respiratory - Mechanically ventilatedintubated following cardiac arrest for airway protection -Current vent settings: AC VC 18/450/5/30 percent -Evidence of pulmonary infiltrates suggestive of aspiration versus pneumonia on CT chest, will add antibiotic coverage -Nebs as needed -Frequent ABGs, adjust vent settings as indicated -Monitor end-tidal CO2 and continuous pulse ox -Patient to remain intubated during therapeutic hypothermia and rewarming phase GI - N.p.o., NG tube to low wall intermittent suction Transaminitisno history of liver disease, likely shock liver following cardiac arrest -We will continue to trend LFTs and maintain map management for now RENAL/LYTES - Creatinine within normal limits, patient is high risk for developing ERIC following cardiac arrest -We will continue to monitor with frequent BMPs -Continue IV fluid resuscitation and map management -Avoid nephrotoxins and renally adjust medications Lactic acidosisfollowing pulseless/cardiac arrest, improving - Foleystrict I's and O's ENDO - No history of diabetes or thyroid disease -Follow-up hemoglobin A1c and TSH -ICU hyperglycemic protocol HEME - H&H stable, monitor routine CBCs ID - Patient afebrile, no leukocytosis, evidence of aspiration versus pneumonia on CT chest -MRSA positive -Urine culture pending -Ceftriaxone and vancomycin for pulmonary coverage LINES/IV ACCESS - Right femoral central line/cooling cath, right femoral arterial line, peripheral IVs, ETT, OG tube DVT PROPHYLAXIS - SCDs, heparin I have personally spent 70 minutes of critical care time in the direct management of this patient. This is a life/limb threatening event. This includes time spent evaluating patient, direct bedside care, chart review, placing orders, interpretation of diagnostic studies, discussion with consultants, patient, and family members, as well as other required patient management activities. This time is exclusive of all separately billable procedures, and teaching time and separate from and in addition to any other critical care service time. Thank you for allowing us to participate in the care of this patient. Please refer to my attending physician's documentation for any further recommendations. (2) Transaminitis: (3) Fracture, ribs: (4) Aspiration into airway: (5) Hypertrophic cardiomyopathy: (6) Hyperlipidemia: (7) Elevated troponin: (8) Anoxic brain damage: Supervising Physician Co-Signing Physician Notes I was advised of this patient via telephone. Also advised of procedural needs by Michael SALAS. Agree with the documented plan. History of Present Illness Attending Physician: Lee Brandt MD History of Present Illness 64-year-old female with past medical history of hyperdynamic cardiomyopathy who presented to the emergency department via EMS in cardiac arrest. Patient was on a walk when she was found collapsed, which is unclear whether it was a witnessed arrest. Police did respond and started CPR and patient received 1 shock with AED. AED report did reveal that the patient was in V. fib at that time and strips placed on chart. When EMS arrived the patient was in a PEA rhythm and she was placed on Nader machine. ROSC was achieved in the emergency department with epi and CPR. Patient was unresponsive following ROSC and she was taken to the [facility] [employer] [facility], with no intervention indicated. She was transferred to the ICU where she is now going therapeutic hypothermia for 24 hours. She is currently intubated, CT chest did show acute right anterior third through fifth rib fractures and acute left anterior fourth through sixth rib fractures, no pneumo thorax or effusion. She was also noted to have bilateral infiltrates suggestive of aspiration. CT head of was negative for acute process. Patient's was unaware of the event initially but has been contacted. He will be in to see the patient in the morning. She is to undergo EEG in the a.m. Will likely have a better understanding neurological function once patient has finished the rewa rming phase. Patient remain in ICU for further management at this time. Allergies Allergy/AdvReac Type Severity Reaction Status Date / Time No Known Allergies Allergy Unknown Verified 12/05/19 17:16 Home Medications Home Medications Medication Instructions Recorded Confirmed Type ASPIRIN (ASPIRIN EC) 81 mg PO Q2D #0 04/10/17 History ATORVASTATIN (LIPITOR) 10 mg PO Q2D #0 tab 04/10/17 History CALCIUM CARBONATE-VITAMIN D 2 cap PO DAILY #0 04/10/17 History (CALCIUM PLUS VITAMIN D) Fish Oil ([place]-3) 1 cap PO DAILY #0 cap 04/10/17 History GLUCOSAMINE-CHONDROITIN 500MG/400 1 cap PO DAILY #0 04/10/17 History MG (GLUCOSAMINE-CHONDROITIN 500 MG/400 MG) Psyllium (Metamucil Fiber) 1 dose PO DAILY #0 04/10/17 History Ranitidine Hcl (ZANTAC) 150 mg PO PRN #0 tab 04/10/17 History Patient History Social History Preferred Language: Polish Communication Ability: Unable Lining Cementer Required: No Beliefs That Will Affect Care: None marital status: Current Living Situation: Spouse Other Information That Helps Us Care for You: No Feels Safe at Home: Yes Safety Concerns: Feels Safe At This Time Smoking Status: Never smoker Do You Dip or Chew Tobacco: No ; Second Hand Exposure: No ; Tobacco Cessation Education Requested by Patient: No Hx Alcohol Use: Yes Alcohol type: beer Hx Substance Use: No Review of Systems Review of Systems: Unobtainable due to cognitive status, Unobtainable due to endotracheal tube and Unobtainable due to reduced consciousness Physical Exam Constitutional: + mechanically ventilated Eyes: PERRL, conjunctivae normal, anicteric sclerae ENMT: external ear and nose normal, oropharynx normal Neck: trachea midline, no thyromegaly Respiratory: Mechanically ventilated, symmetrical chest wall movement, lungs clear to auscultation Cardiovascular: RRR, no murmur, no edema Heart Sounds: normal S1 and normal S2 Vessels: no JVD Extremities: normal capillary refill; no edema Gastrointestinal (Abdomen): normal bowel sounds, soft, nontender, no hepatosplenomegaly Musculoskeletal: Unable to assess as patient is intubated and sedated, unresponsive Skin: no rashes, warm and dry Neurologic: PERRLA, cough gag corneal intact, exam limited due to sedation. Patient does move all extremities to painful stimuli. Psychiatric: JOSE due to sedation Genitourinary: Indwelling Madden catheter Results & Data Results & Data ([facility]) Vital Signs (Past 12 Hours) Vital Signs Pulse Resp BP Pulse Ox 12/05/19 16:50 101/64 12/05/19 16:45 80 100 12/05/19 16:40 86 130/76 100 12/05/19 16:31 82 105/67 100 12/05/19 16:30 83 94 12/05/19 16:25 81 17 98 12/05/19 16:20 87 113/63 90 12/05/19 16:17 90 109/75 84 L 12/05/19 16:15 88 12/05/19 16:13 92 H 14 109/75 94 12/05/19 16:07 98 H 169/141 H Coding Level of Care Code Critical Care 1st 30-74 mins Diagnoses Cardiac arrest I46.9 Transaminitis R74.0 Fracture, ribs S22.43XA Encounter type: initial encounter Fracture type: closed Laterality: bilateral Rib fracture type: multiple ribs Aspiration into airway T17.908A Encounter type: initial encounter Hypertrophic cardiomyopathy I42.2 Hyperlipidemia E78.5 Elevated troponin R74.8 Anoxic brain damage G93.1 (1) Fracture, ribs Encounter type: initial encounter Fracture type: closed Laterality: bilateral Rib fracture type: multiple ribs Qualified Code(s): S22.43XA - Multiple fractures of ribs, bilateral, initial encounter for closed fracture (2) Aspiration into airway Encounter type: initial encounter Qualified Code(s): T17.908A - Unspecified foreign body in respiratory tract, part unspecified causing other injury, initial encounter
[2019-12-05] MEDS ORDERED: PROPOFOL IV EMULSION 10 MG/ML 100 ML VIAL IV ONE (19:29)
[2019-12-05] MEDS: fentaNYL DRIP 1,250 MCG/250 ML BAG IV SCH (19:30)
[2019-12-05] MEDS: propofoL 1,000 MG/100 ML VIAL IV SCH (19:30)
[2019-12-05] MEDS: MEPERIDINE HCL 25 MG/ML CARP/VIAL IV PRN ×2 (19:36→23:03)
[2019-12-05] MEDS ORDERED: MEPERIDINE HCL 25 MG/ML CARP/VIAL ONE (19:36)
--- NOTE | 2019-12-05 19:36 | History & Physical Report ---
Date of Service December 05, 2019 Assessment & Plan (1) Cardiac arrest: Blanca Lopez is a 64 y/o female with hx hypertrophic cardiomyopathy who presented after cardiac arrest while walking. - AED shock x1, epi total 5mg IV, CPR performed in field with regained pulse in ED. - Cardiac cath performed with no signs of ischemic event to explain event. - Currently sedated with mechanical ventilation with code artic. - No clear signs of etiology, CTA chest negative for PE. - Perhaps fluid dynamics impaired by walking on hot humid day causing dysrythmia leading to vfib --> arrest. - Continue with ICU care, uncertain total time down in field. CT head was negative. - Will order Hgb A1C and Lipid panel for risk factor evaluation - CT head and CT cervical spine both negative for acute injury. Code: full FENGI: NPO currently on mechanical ventilator DVT ppx: Heparin Dispo: Full admit, ICU care (2) Fracture, ribs: found on imaging, consistent with CPR in field (3) Hypertrophic cardiomyopathy: reported hx, follows with [facility] Med review reports currently on aspirin daily (4) Hyperlipidemia: reported in history currently was on Lipitor 10mg PO q2d and Fish oil (5) Transaminitis: most likely from shock liver in setting of cardiac arrest AST 770; ALT 823 trend (6) Aspiration into airway: possible aspiration into airway CTA Chest: There is dense dependent airspace consolidation seen bilaterally. This likely represents pneumonia versus aspiration pneumonitis. (7) Elevated troponin: 0.383 initial in setting of cardiac arrest trend Admission and Anticipated Discharge Date Admission Date: December 05, 2019 History of Present Illness Chief Complaint: Cardiac Arrest Primary Care Provider: Bro Oleary MD Blanca Lopez is a 64 y/o female with past medical hx of hypertrophic cardiomyopathy who presented via EMS for CC of cardiac arrest. Per EMS report, patient collpased while out for a walk. No documentation of witness during collapse. Police arrived on scene with AED placement and AED shocked patient x1. EMS arrived with patient in asystole and CPR was being performed by police. Patient was medicated with a total of epi IV 5mg. She was found to be in PEA in the filed as well during treatment with epi. CPR was in progress with Nader machine upon arriveal. Pulse was found by ED provider and CPR was discontinued. arrived to ED and was made aware. Blanca was taken to cardiac filling station laborer with Summary: 1. Moderate nonobstructive coronary artery disease -40 to 50% ostial RCA 20% ostial left main 50% mid LAD 60 to 70% ostial second diagonal 2. Normal intracardiac filling pressure 3. Successful central venous/cooling catheter placement Recommendations: ERNESTO-3 flow throughout and no evidence of high-grade acute coronary lesions. No disease to explain out of hospital cardiac arrest. Further cardiac evaluation/possible ICD per recommendations of her primary pier hand Dr. Monge. Continue aspirin, statin and ASCVD risk factor modification. She is currently under the care if ICU team with current code artic. Allergies Allergy/AdvReac Type Severity Reaction Status Date / Time No Known Allergies Allergy Unknown Verified 12/05/19 17:16 Home Medications Home Medications Medication Instructions Recorded Confirmed Type ASPIRIN (ASPIRIN EC) 81 mg PO Q2D #0 04/10/17 History ATORVASTATIN (LIPITOR) 10 mg PO Q2D #0 tab 04/10/17 History CALCIUM CARBONATE-VITAMIN D 2 cap PO DAILY #0 04/10/17 History (CALCIUM PLUS VITAMIN D) Fish Oil ([place]-3) 1 cap PO DAILY #0 cap 04/10/17 History GLUCOSAMINE-CHONDROITIN 500MG/400 1 cap PO DAILY #0 04/10/17 History MG (GLUCOSAMINE-CHONDROITIN 500 MG/400 MG) Psyllium (Metamucil Fiber) 1 dose PO DAILY #0 04/10/17 History Ranitidine Hcl (ZANTAC) 150 mg PO PRN #0 tab 04/10/17 History Past Med/Surg History Social History Preferred Language: Serbian Communication Ability: Effective Product Line Manager Required: No Beliefs That Will Affect Care: None Current Living Situation: Spouse Other Information That Helps Us Care for You: No Feels Safe at Home: Yes Safety Concerns: Feels Safe At This Time Smoking Status: Never smoker Do You Dip or Chew Tobacco: No ; Second Hand Ex posure: No ; Tobacco Cessation Education Requested by Patient: No Hx Alcohol Use: Yes Alcohol type: beer Hx Substance Use: No Review of Systems Review of Systems: Unobtainable due to endotracheal tube Physical Exam Constitutional: WD/WN, vitals as above comfortable physical exam limited by: Sedated and Mechanically ventilated Eyes: PERRL, conjunctivae normal, anicteric sclerae ENMT: Nose: no external nose abnormality Mouth: no lip abnormality Neck: normal visual inspection and trachea midline Respiratory: Auscultation: lungs clear to auscultation bilaterally mechanically ventilated Cardiovascular: distant heart sounds Gastrointestinal (Abdomen): Inspection/Auscultation: abdomen not distended Percussion/Palpation: abdomen soft Musculoskeletal: Head/Neck/Chest: normocephalic Skin: no rashes dry Neurologic: unable to evaluate, sedation Psychiatric: unable to evaluate sedation Results & Data Results & Data ([facility]) Vital Signs (Past 12 Hours) Vital Signs Pulse Resp BP Pulse Ox 12/05/19 19:05 88 20 98 12/05/19 16:50 101/64 12/05/19 16:45 80 100 12/05/19 16:40 86 130/76 100 12/05/19 16:31 82 105/67 100 12/05/19 16:30 83 94 12/05/19 16:25 81 17 98 12/05/19 16:20 87 113/63 90 12/05/19 16:17 90 109/75 84 L 12/05/19 16:15 88 12/05/19 16:13 92 H 14 109/75 94 12/05/19 16:07 98 H 169/141 H Laboratory Results Laboratory Results - last 24 hr 12/05/19 12/05/19 12/05/19 16:18 16:28 16:28 WBC 9.28 RBC 3.96 L Hgb 12.7 POC Hgb Hct 37.9 POC Hct MCV 95.7 MCH 32.1 MCHC 33.5 RDW Std Deviation 43.3 RDW Coeff of Franc[place]sc[place] 12.4 Plt Count 157 MPV 11.2 H Immature Gran % (Auto) 1.6 Neut % (Auto) 42.0 Lymph % (Auto) 52.5 [place] % (Auto) 3.3 Eos % (Auto) 0.4 Baso % (Auto) 0.2 Neut # (Auto) 3.89 Lymph # (Auto) 4.87 H [place] # (Auto) 0.31 Eos # (Auto) 0.04 Baso # (Auto) 0.02 Immature Gran # (Auto) 0.15 H Echinocytes 1+ PT 12.5 H INR 1.2 H APTT 27.0 PTT Ratio 1.0 POC Sodium Sodium 145 POC Potassium Potassium 3.5 POC Chloride Chloride 112 H Carbon Dioxide 20 L POC Total CO2 Anion Gap 13.0 H POC Anion Gap POC BUN BUN 17 Creatinine 1.19 POC Creatinine Est Cr Clr Drug Dosing 54.0 Est GFR ( Amer) 56.3 Est GFR (Non-Af Amer) 48.5 BUN/Creatinine Ratio 14.1 Glucose 215 H POC Glucose POC Glucose (other) Lactate Calcium 7.0 L POC Ioniz Calcium Germain Total Bilirubin 0.4 AST 770 H ALT 823 H Alkaline Phosphatase 54 Total Creatine Kinase 211 H Troponin I 0.383 H* Total Protein 5.3 L Albumin 2.7 L Globulin 2.6 Albumin/Globulin Ratio 1.0 Lipase 135 Specimen Hemolysis Urine Color Urine Appearance Urine pH Ur Specific [place] Urine Protein Urine Glucose (UA) Urine Ketones Urine Blood Urine Nitrite Urine Bilirubin Urine Urobilinogen Ur Leukocyte Esterase Urine WBC (Auto) Urine RBC (Auto) U Hyaline Cast (Auto) U Epithel Cells (Auto) Urine Bacteria (Auto) Urine Yeast Nasal Screen MRSA (PCR) 12/05/19 12/05/19 12/05/19 16:28 16:28 17:05 WBC RBC Hgb POC Hgb 12.2 Hct POC Hct 36 L MCV MCH MCHC RDW Std Deviation RDW Coeff of [place] Plt Count MPV Immature Gran % (Auto) Neut % (Auto) Lymph % (Auto) [place] % (Auto) Eos % (Auto) Baso % (Auto) Neut # (Auto) Lymph # (Auto) [place] # (Auto) Eos # (Auto) Baso # (Auto) Immature Gran # (Auto) Echinocytes PT INR APTT PTT Ratio POC Sodium 141 Sodium POC Potassium 4.0 Potassium POC Chloride 105 Chloride Carbon Dioxide POC Total CO2 21 L Anion Gap POC Anion Gap 20.0 POC BUN 22 H BUN Creatinine POC Creatinine 1.0 Est Cr Clr Drug Dosing Est GFR ( Amer) Est GFR (Non-Af Amer) BUN/Creatinine Ratio Glucose POC Glucose POC Glucose (other) 218 H Lactate 6.6 H* Calcium POC Ioniz Calcium Germain 1.03 L Total Bilirubin AST ALT Alkaline Phosphatase Total Creatine Kinase Troponin I Total Protein Albumin Globulin Albumin/Globulin Ratio Lipase Specimen Hemolysis Urine Color [place] Urine Appearance Cloudy A Urine pH 8.5 H Ur Specific [place] 1.018 Urine Protein 4+ H Urine Glucose (UA) 1+ H Urine Ketones Negative Urine Blood 3+ H Urine Nitrite Negative Urine Bilirubin Negative Urine Urobilinogen Negative Ur Leukocyte Esterase Trace H Urine WBC (Auto) >30 H Urine RBC (Auto) >30 H U Hyaline Cast (Auto) 5-10 H U Epithel Cells (Auto) >30 H Urine Bacteria (Auto) 2+ H Urine Yeast Not Reportable Nasal Screen MRSA (PCR) 12/05/19 12/05/19 12/05/19 19:00 19:40 19:45 WBC RBC Hgb POC Hgb Hct POC Hct MCV MCH MCHC RDW Std Deviation RDW Coeff of [place] Plt Count MPV Immature Gran % (Auto) Neut % (Auto) Lymph % (Auto) [place] % (Auto) Eos % (Auto) Baso % (Auto) Neut # (Auto) Lymph # (Auto) [place] # (Auto) Eos # (Auto) Baso # (Auto) Immature Gran # (Auto) Echinocytes PT INR APTT PTT Ratio POC Sodium Sodium POC Potassium Potassium POC Chloride Chloride Carbon Dioxide POC Total CO2 Anion Gap POC Anion Gap POC BUN BUN Creatinine POC Creatinine Est Cr Clr Drug Dosing Est GFR ( Amer) Est GFR (Non-Af Amer) BUN/Creatinine Ratio Glucose POC Glucose 112 H POC Glucose (other) Lactate Pending Calcium POC Ioniz Calcium Germain Total Bilirubin AST ALT Alkaline Phosphatase Total Creatine Kinase Troponin I Total Protein Albumin Globulin Albumin/Globulin Ratio Lipase Specimen Hemolysis Urine Color Urine Appearance Urine pH Ur Specific [place] Urine Protein Urine Glucose (UA) Urine Ketones Urine Blood Urine Nitrite Urine Bilirubin Urine Urobilinogen Ur Leukocyte Esterase Urine WBC (Auto) Urine RBC (Auto) U Hyaline Cast (Auto) U Epithel Cells (Auto) Urine Bacteria (Auto) Urine Yeast Nasal Screen MRSA (PCR) Pending Medications Administered Ioversol (Optiray 320 125ml) 119 ml IV ONCE PRN PRN Reason: Interaction Checking Stop: 12/09/19 16:56 Last Admin: 12/05/19 16:57 Dose: 119 ml Documented by: [id number] Code Status & VTE Plan Code Status Full Code VTE Prophylaxis Plan VTE Prophylaxis will be ordered: Yes Supervising Physician Co-Signing Physician Notes Patient seen and examined, chart reviewed, case discussed with Dr. Bare and I agree with his assessment and plan as documented above. Briefly, patient is a 64yo C female presenting after [id number] VF arrest s/p AED shock x 1, epi x 5 conversion to PEA then ROSC. Patient taken to the filling station laborer and found to have moderate non-obstructing CAD, no PCI. Patient with possible HOCM per echocardiogram 04/10/17. Has family history of SCD. Patient presently intubated, sedated in MICU undergoing therapeutic hypothermia Pupils small, equal and reactive, ETT in place +S1/S2, regular, bradycardic, no m/r/g Lungs - CTA anteriorly, no rales/rhonchi/wheezes Abd - +BS, soft, NT/ND Ext- No edema Labs and images reviewed. Lactate 6.6.--> 2.1, elevated transaminases, CK and troponin=0.383 consistent with prior cardiac arrest with down time. CXR concerning for aspiration event -Admit to MICU -Therapeutic hypothermia per protocol -Trend LFTs, Lactate, Troponin -Repeat Echo -Cardiology, Leaf Blender management appreciated -Remainder of plan as above Resident Activity Tracking Resident Involvement: Resident Care Provided Care Provided: Adult Hospital Medicine (1) Fracture, ribs Encounter type: initial encounter Fracture type: closed Laterality: bilateral Rib fracture type: multiple ribs Qualified Code(s): S22.43XA - Multiple fractures of ribs, bilateral, initial encounter for closed fracture (2) Aspiration into airway Encounter type: initial encounter Qualified Code(s): T17.908A - Unspecified foreign body in respiratory tract, part unspecified causing other injury, initial encounter
[2019-12-05] MEDS ORDERED: VANCOMYCIN CONSULT ACTIVE PRN (21:00)
--- NOTE | 2019-12-05 21:03 | Procedure Note ---
Procedure Note Date of Service December 05, 2019 Note FEMORAL CENTRAL LINE PROCEDURE NOTE: Procedure: Cooling catheter [id number] exchange of the right femoral vein Attending: Dr. Mayur Morales Provider: JOSUE Butt Indication: Central Drug Administration, therapeutic hypothermia Anesthesia: None Line exchanged emergently in the setting of cardiac arrest with anoxic injury, requiring therapeutic hypothermia with intravascular cooling with prior intravascular cooling catheter line malfunction. A time-out was completed verifying correct patient, procedure, site, positioning, and implants(s) or special equipment if applicable. Patients right groin was cleansed and draped in the typical sterile fashion using Chloraprep. The balloons for the intravascular cooling catheter were deflated and a guidewire was placed through the distal port of the patient's intravascular c ooling catheter. Sutures were removed, and catheter was removed from the patient intact with guidewire left in the femoral vein. Confirmation of guidewire in the femoral vein was obtained with ultrasound. The new intravascular cooling catheter was inserted over the wire and advanced into the vessel without resistance. The guidewire was removed intact from the catheter without issue. Clips were placed on each catheter tip with confirmation of blood flow from each lumen. Each port was easily flushed with sterile saline. The catheter was placed at the hub and sutured in place. Biopatch was applied to the catheter and sterile Tegaderm dressing was applied over the catheter with careful attention to sterility. Patient tolerated procedure well. No immediate complications were met. Images obtained are saved for permanent record Procedural Ultrasound Guidance: Procedure Date: 12/05/2019 Indication: Intravascular cooling catheter [id number] exchange Attending: Dr. Mayur Morales Provider: JOSUE Butt Artery AND Vein visualized: Yes Compressible Vein: Yes Guidewire or Short Catheter seen in vein: Yes Line confirmed in Vein with ultrasound: Yes Images obtained are saved for permanent record. Coding CPT Codes Tubes, Drains, and Vasc Access - Tubes, Drains, and Vasc Access: [id number] Place catheter in vein superior or inferior vena cava ([id number]) Tubes, Drains, and Vasc Access - Tubes, Drains, and Vasc Access: [id number] Ultrasound Guidance For Vascular ([id number]) [facility] [place] Procedure Codes (Charges) Tubes, Drains, and Vasc Access Procedure 1: Tubes, Drains, and Vasc Access: [id number] Place catheter in vein superior or i nferior vena cava Procedure 2: Tubes, Drains, and Vasc Access: [id number] Ultrasound Guidance For Vascular
--- NOTE | 2019-12-05 21:03 | Procedure Note ---
Procedure Note Date of Service December 05, 2019 Note ARTERIAL LINE PROCEDURE NOTE: Procedure: Femoral arterial Line Placement Attending: Dr. Mayur Morales Provider: JOSUE Butt Indication: Continuous blood pressure monitoring, frequent ABGs and lab draws. Anesthesia: None Line placed emergently in the setting of cardiac arrest with anoxic injury, requiring intravascular therapeutic hypothermia. A time-out was completed verifying correct patient, procedure, site, positioning, and implant(s) or special equipment if applicable. Artery and vein were identified with ultrasound and the patient's right groin. Patients right groin was prepped and draped in the usual sterile fashion. Ultrasound guidance was used to aid needle placement. Introducer needle was inserted into the right femoral vein. A guidewire was inserted into the needle, and the needle was removed. Guidewire placement into the femoral artery was confirmed on ultrasound. Catheter was threaded over the guidewire and the needle was removed with appropriate blood return. Good waveform was observed on the monitor. Catheter was sutured in place and a sterile dressing applied. The patient tolerated the procedure well. Confirmation of placement with ultrasound. Blood Loss: Minimal Complications: None Procedural Ultrasound Guidance: Procedure Date: 12/05/2011 Indication: Femoral arterial line insertion Attending: Dr. Mayur Murray Provider: JOSUE Butt Artery Identified: YES Line confirmed in Artery with ultrasound: Yes Complications: NONE Patient tolerated procedure: WELL Coding CPT Codes Tubes, Drains, and Vasc Access - Tubes, Drains, and Vasc Access: [id number] Place Catheter In Artery ([id number]) Tubes, Drains, and Vasc Access - Tubes, Drains, and Vasc Access: [id number] Ultrasound Guidance For Vascular ([id number]) [facility] Procedure Codes (Charges) Tubes, Drains, and Vasc Access Procedure 1: Tubes, Drains, and Vasc Access: [id number] Place Catheter In Artery Procedure 2: Tubes, Drains, and Vasc Access: [id number] Ultrasound Guidance For Vascular
[2019-12-05] MEDS: NORMOSOL-R 1,000 ML IV SCH (21:25)
[2019-12-05] MEDS ORDERED: VANCOMYCIN HCL 1,500 MG in SODIUM CHLORIDE 0.9% 500 ML IV ONE (21:30)
[2019-12-05 21:52] LABS: iSTAT Allen Test Pass; iSTAT Art Bld Gas pCO2 Correct 50 mmHg (35-46); iSTAT Art Bld Gas pH Corrected 7.294 (7.35-7.45); iSTAT Arterial Blood Gas HCO3 25 meg/L (19-24); iSTAT Arterial Blood Gas pCO2 54 mmHg (35-46); iSTAT Arterial Blood Gas pH 7.27 (7.35-7.45); iSTAT Arterial Blood Gas pO2 149 mmHg (80-95); iSTAT Arterial Blood Gas pO2 C 139; iSTAT Carbon Dioxide 26 mmol/L (24-31); iSTAT FiO2 40 %; iSTAT Hematocrit 41 % (37-47); iSTAT Hemoglobin 13.9 g/dl (12.0-16.0); iSTAT Potassium 3.4 mmol/L (3.3-5.0); iSTAT Site R Femoral; iSTAT Sodium 142 mmol/L (135-144)
[2019-12-05] MEDS: cefTRIAXone SODIUM 2,000 MG in DEXTROSE 5% 50 ML IV SCH (22:54)
[2019-12-05] MEDS ORDERED: CALCIUM GLUCONATE 10% 1,000 MG in SODIUM CHLORIDE 0.9% 50 ML IV ONE (23:15)
[2019-12-06] MEDS: propofoL 1,000 MG/100 ML VIAL IV SCH ×2 (00:30→07:03)
[2019-12-06 01:05] LABS: INR 1.2 (0.9-1.1); Prothrombin Time 12.1 Seconds (9.0-12.0)
[2019-12-06 01:10] LABS: BUN Creatinine Ratio 23.5 (10-20); Calcium 7.3 mg/dl (8.5-10.1); Creatinine Clr Calc Pharmacy 82.4 ml/min; Est GFR (African American) 93.8; Est GFR (Non-African American) 80.9; Magnesium 1.8 mg/dl (1.8-2.4)
[2019-12-06 01:11] LABS: Phosphorus 2.4 mg/dl (2.5-4.9)
[2019-12-06] MEDS ORDERED: POTASSIUM PHOS 3 MMOL/1 ML INFUSION IV STA (01:32)
[2019-12-06] MEDS ORDERED: POTASSIUM CHLORIDE 20 MEQ/15 ML UDC PO ONE (01:45)
[2019-12-06 01:54] LABS: iSTAT Art Bld Gas pCO2 Correct 25 mmHg (35-46); iSTAT Art Bld Gas pH Corrected 7.527 (7.35-7.45); iSTAT Arterial Blood Gas HCO3 22 meg/L (19-24); iSTAT Arterial Blood Gas pCO2 32 mmHg (35-46); iSTAT Arterial Blood Gas pH 7.45 (7.35-7.45); iSTAT Arterial Blood Gas pO2 146 mmHg (80-95); iSTAT Arterial Blood Gas pO2 C 119; iSTAT Carbon Dioxide 23 mmol/L (24-31); iSTAT FiO2 30 %; iSTAT Hematocrit 36 % (37-47); iSTAT Hemoglobin 12.2 g/dl (12.0-16.0); iSTAT Potassium 2.8 mmol/L (3.3-5.0); iSTAT Site R Femoral; iSTAT Sodium 141 mmol/L (135-144)
[2019-12-06] MEDS ORDERED: POTASSIUM PHOSPHATE 15 MMOL in SODIUM CHLORIDE 0.9% 250 ML IV ONE (02:00)
[2019-12-06] MEDS: MAGNESIUM SULFATE / D5W 1 GM/100 ML BAG IV SCH ×2 (02:03→04:03)
[2019-12-06] MEDS: POTASSIUM CHLORIDE / WTR 20 MEQ/100 ML PLCT IV SCH ×3 (02:09→04:09)
[2019-12-06] MEDS ORDERED: NORMOSOL-R 1,000 ML IV ONE (04:38)
[2019-12-06 04:56] LABS: iSTAT Art Bld Gas pCO2 Correct 29 mmHg (35-46); iSTAT Art Bld Gas pH Corrected 7.467 (7.35-7.45); iSTAT Arterial Blood Gas HCO3 22 meg/L (19-24); iSTAT Arterial Blood Gas pCO2 36 mmHg (35-46); iSTAT Arterial Blood Gas pO2 151 mmHg (80-95); iSTAT Arterial Blood Gas pO2 C 125; iSTAT Carbon Dioxide 23 mmol/L (24-31); iSTAT FiO2 30 %; iSTAT Hematocrit 37 % (37-47); iSTAT Hemoglobin 12.6 g/dl (12.0-16.0); iSTAT Potassium 4.2 mmol/L (3.3-5.0); iSTAT Site R Femoral; iSTAT Sodium 139 mmol/L (135-144)
--- NOTE | 2019-12-06 05:05 | Billing Data ---
Date of Service December 05, 2019 Coding Level of Care Code Critical Care 1st 30-74 mins Time Spent (min) 40
[2019-12-06] MEDS ORDERED: STAT IV Infusion **Titration per Protocol STA (05:34)
[2019-12-06] MEDS ORDERED: EPINEPHrine 2 MG in DEXTROSE 5% 250 ML IV STA (05:34)
[2019-12-06 06:17] LABS: INR 1.2 (0.9-1.1); Partial Thromboplastin Ratio 1.1; Partial Thromboplastin Time 30.5 Seconds (21.0-31.0); Prothrombin Time 12.1 Seconds (9.0-12.0)
[2019-12-06] MEDS: MEPERIDINE HCL 25 MG/ML CARP/VIAL IV PRN ×4 (06:38→19:23)
[2019-12-06] MEDS ORDERED: CALCIUM CHLORIDE 10% 1,000 MG in SODIUM CHLORIDE 0.9% 50 ML IV ONE (06:45)
[2019-12-06 06:47] LABS: BUN Creatinine Ratio 24.2 (10-20); Calcium 6.4 mg/dl (8.5-10.1); Creatinine Clr Calc Pharmacy 102.9 ml/min; Est GFR (African American) 110.6; Est GFR (Non-African American) 95.5; Magnesium 2.8 mg/dl (1.8-2.4); Phosphorus 2.6 mg/dl (2.5-4.9); Potassium 4.1 mmol/L (3.5-5.1)
[2019-12-06 06:57] LABS: Alanine Aminotransferase 650 U/L (12-78); Albumin Level 2.7 gm/dl (3.4-5.0); Alkaline Phosphatase 44 U/L (45-117); Aspartate Aminotransferase 490 U/L (15-37); Bilirubin Direct < 0.1 mg/dl (0-0.2); Bilirubin,Total 0.3 mg/dl (0.2-1); Chol HDL Ratio 2; Cholesterol 89 mg/dl (0-200); HDL Cholesterol 46 mg/dl; LDL Cholesterol Calculated 32 mg/dl; Total Protein 4.9 gm/dl (6.4-8.2); Triglycerides 53 mg/dl (0-150); VLDL Cholesterol 11 mg/dl
--- NOTE | 2019-12-06 07:27 | XRay Report ---
XR chest 1V portable CLINICAL HISTORY: Respiratory failure COMPARISON STUDY: 12/05/2019 FINDINGS: There is a nasogastric tube which passes into the stomach. There is an endotracheal tube po sitioned 52 mm above the christopher. The heart is enlarged. There is mild vascular prominence without jovani dence of overt failure. There are no pleural effusions. There are prominent basilar markings, likely atelectatic although a pneumonia could appear similar. IMPRESSION: 1. Endotracheal tube 5 cm above the christopher 2. Prominent basilar markings likely atelectatic although a pneumonia could appear similar ACT 112: Negative or not required by law. Electronically signed by: John Mckeon M.D. 12/06/2019 7:26 AM
--- NOTE | 2019-12-06 07:42 | Hospitalist Progress Note ---
Date of Service December 06, 2019 Assessment & Plan (1) Cardiac arrest: Blanca Lopez is a 64 y/o female with hx hypertrophic cardiomyopathy was admitted to the ICU after suffering an out of hospital cardiac arrest while walking, achieved ROSC after AED shock and CPR en route to hospital. - AED shock x1, epi total 5mg IV, CPR performed in field with regained pulse in ED. - Cardiac cath performed with no signs of ischemic event to explain event. - Currently sedated with mechanical ventilation with therapeutic hypothermia - No clear signs of etiology, CTA chest negative for PE. Given HCM, possibly suffered obstructive event leading to VFIb and arrest. - Continue with ICU care, uncertain total time down in field. - CT head and CT cervical spine both negative for acute injury. Code: full FENGI: NPO currently on mechanical ventilator DVT ppx: Heparin Dispo: Full admit, ICU care (2) Fracture, ribs: found on imaging, consistent with CPR in field (3) Hypertrophic cardiomyopathy: reported hx, follows with Dr. Monge with [facility] review reports currently on aspirin daily (4) Hyperlipidemia: reported in history currently was on Lipitor 10mg PO q2d and Fish oil (5) Transaminitis: most likely from shock liver in setting of cardiac arrest AST 770; ALT 823 trend (6) Aspiration into airway: possible aspiration into airway after cardiac event CTA Chest: There is dense dependent airspace consolidation seen bilaterally. This likely represents pneumonia versus aspiration pneumonitis. (7) Elevated troponin: 0.383 initial in setting of cardiac arrest Cardiac cath showing mild stenosis without need for intervention Admission and Anticipated Discharge Date Admission Date: December 05, 2019 Supervising Physician Co-Signing Physician Notes I personally examined the patient and verified all nicolas points of history and exam, discussed case, and agree with decision making with Dr Silva. sedated, intubated. nursing does note that she seemed to respond to 's voice some, and also have gag/grimace type response to mouth care. vitals noted nad heent nc at mmm breathing unlabored no accessory muscles good effort skin no rashes no pallor or icterus arrest - ROSC obtained, coronaries without CO - supportive care/hypothermia protocol. post awakening will want to [place] further input from cardiology on management of hypertrophic cardiomyopathy. otherwise as above, and as per ICU. Subjective Intubated, sedated, unresponsive to pain or name. Review of Systems Review of Systems: Unobtainable due to cognitive status and Unobtainable due to endotracheal tube Physical Exam Constitutional: Intubated, sedated, covered in blankets and warming apparatus in bed Respiratory: mechanically ventilated: assist control, RR 15, TV 450 ml, PEEP 5, FIO2 30, minute ventilation 5.4, peak insp flow 60 l/min Cardiovascular: On heart monitor, frequently briefly sinus tachycardic in 160s while shivering before returning to normal HR Skin: intact, no rashes or lesions Results & Data Results & Data ([facility]) Vital Signs (Past 12 Hours) Vital Signs Temp Temp Pulse Pulse Resp BP BP 12/06/19 07:16 32.2 C L 57 L 103/55 L 12/06/19 07:00 32.1 C L 52 L 12/06/19 06:00 32.1 C L 49 L 13 98/54 L 12/06/19 05:00 32 C L 44 L 12 101/52 L 12/06/19 04:39 43 L 14 12/06/19 04:15 32 C L 47 L 15 88/65 L 12/06/19 03:15 31.9 C L 31.9 C L 45 L 14 96/60 L 96/60 L 12/06/19 02:15 31.9 C L 31.9 C L 45 L 14 92/61 L 92/61 L 12/06/19 01:35 49 L 18 12/06/19 01:16 31.9 C L 48 L 98/63 L 12/06/19 01:15 31.9 C L 48 L 18 98/63 L 12/06/19 00:15 31.9 C L 31.9 C L 53 L 18 102/81 102/81 12/06/19 00:00 50 L 12/05/19 23:15 33.4 C L 33.4 C L 68 18 97/63 L 97/63 L 12/05/19 22:16 34.5 C L 77 101/74 12/05/19 22:15 34.5 C L 80 18 101/74 12/05/19 21:56 18 12/05/19 21:16 35.4 C L 84 126/78 12/05/19 21:15 35.4 C L 89 14 126/78 12/05/19 20:58 77 139/84 07/11/20 20:43 85 135/80 12/05/19 20:30 85 12/05/19 20:29 85 129/87 12/05/19 20:15 35.1 C L 85 14 137/70 12/05/19 20:14 85 137/70 12/05/19 19:58 81 129/93 12/05/19 19:45 36.0 C L 95 H 16 145/82 H 12/05/19 19:43 92 H 135/79 Pulse Ox 12/06/19 07:16 100 12/06/19 07:00 100 12/06/19 06:00 100 12/06/19 05:00 100 12/06/19 04:39 98 12/06/19 04:15 100 12/06/19 03:15 100 12/06/19 02:15 100 12/06/19 01:35 100 12/06/19 01:16 100 12/06/19 01:15 100 12/06/19 00:15 100 12/06/19 00:00 12/05/19 23:15 100 12/05/19 22:16 100 12/05/19 22:15 100 12/05/19 21:56 12/05/19 21:16 100 12/05/19 21:15 92 12/05/19 20:58 100 12/05/19 20:43 100 12/05/19 20:30 100 12/05/19 20:29 100 12/05/19 20:15 98 12/05/19 20:14 98 12/05/19 19:58 12/05/19 19:45 99 12/05/19 19:43 100 Laboratory Results WBC 9.28 K/uL (4.8-10.8) 12/05/19 16:28 RBC 3.96 M/uL (4.2-5.4) L 12/05/19 16:28 Hgb 12.7 g/dL (12.0-16.0) 12/05/19 16:28 POC Hgb 12.6 g/dl (12.0-16.0) 12/06/19 14:06 Hct 37.9 % (37-47) 12/05/19 16:28 POC Hct 37 % (37-47) 12/06/19 14:06 MCV 95.7 fL (80-100) 12/05/19 16: MCH 32.1 pg (25-34) 12/05/19 16: MCHC 33.5 g/dL (32-36) 12/05/19 16: RDW Std Deviation 43.3 fL (36.4-46.3) 12/05/19 16: RDW Coeff of Franchesca 12.4 % (11.5-14.5) 12/05/19 16: Plt Count 157 K/uL (130-400) 12/05/19 16: MPV 11.2 fL (7.4-10.4) H 12/05/19 16: Immature Gran % (Auto) 1.6 % 12/05/19 16: Neut % (Auto) 42.0 % 12/05/19 16: Lymph % (Auto) 52.5 % 12/05/19 16: [place] % (Auto) 3.3 % 12/05/19 16: Eos % (Auto) 0.4 % 12/05/19 16: Baso % (Auto) 0.2 % 12/05/19 16: Neut # (Auto) 3.89 K/uL (1.4-6.5) 12/05/19 16: Lymph # (Auto) 4.87 K/uL (1.2-3.4) H 12/05/19 16:28 [place] # (Auto) 0.31 K/uL (0.11-0.59) 12/05/19 16: Eos # (Auto) 0.04 K/uL (0-0.5) 12/05/19 16: Baso # (Auto) 0.02 K/uL (0-0.2) 12/05/19 16: Immature Gran # (Auto) 0.15 K/uL (0.00-0.02) H 12/05/19 16: Echinocytes 1+ 12/05/19 16: PT 11.5 Seconds (9.0-12.0) 12/06/19 13:13 INR 1.1 (0.9-1.1) 12/06/19 13:13 APTT 29.9 Seconds (21.0-31.0) 12/06/19 13:13 PTT Ratio 1.1 12/06/19 13:13 Sample Site Art Line 12/06/19 14:06 POC pH 7.18 (7.35-7.45) L* 12/06/19 14:06 POC pCO2 64 mmHg (35-46) H 12/06/19 14:06 POC pO2 115 mmHg (80-95) H 12/06/19 14:06 POC HCO3 24 ana/L (19-24) 12/06/19 14:06 POC Total CO2 26 mmol/L (24-31) 12/06/19 14:06 POC Base Excess -4.0 ana/L (-9-1.8) 12/06/19 14:06 ABG pH (Temp Correct) 7.247 (7.35-7.45) L 12/06/19 14:06 ABG pCO2 (Temp Corrct 52 mmHg (35-46) H 12/06/19 14:06 POC ABG pO2 at Pt Temp 89 12/06/19 14:06 POC ABG O2 Sat 97.0 % (90-95) H 12/06/19 14:06 Esau Test NA 12/06/19 14:06 O2 Delivery Device Ventilator 12/06/19 14:06 POC O2 Rate 12 12/06/19 14:06 Minute Ventilation 5.9 12/06/19 14:06 POC FiO2 30 % 12/06/19 14:06 Tidal Volume 450 12/06/19 14:06 PEEP 5 12/06/19 14:06 POC Sodium 141 mmol/L (135-144) 12/06/19 14:06 Sodium 143 mmol/L (136-145) 12/06/19 13:13 POC Potassium 3.2 mmol/L (3.3-5.0) L 12/06/19 14:06 Potassium 3.2 mmol/L (3.5-5.1) L D 12/06/19 13:13 POC Chloride 105 mmol/L (101-112) 12/05/19 16:28 Chloride 109 mmol/L (98-107) H 12/06/19 13:13 Carbon Dioxide 24 mmol/L (21-32) 12/06/19 13:13 POC Total CO2 21 mmol/L (24-31) L 12/05/19 16:28 Anion Gap 11.0 (3-11) 12/06/19 13:13 POC Anion Gap 20.0 mmol/L (16-25) 12/05/19 16:28 POC BUN 22 mg/dl (7-18) H 12/05/19 16:28 BUN 13 mg/dl (7-18) 12/06/19 13:13 Creatinine 0.90 mg/dl (0.6-1.2) 12/06/19 13:13 POC Creatinine 1.0 mg/dl (0.6-1.3) 12/05/19 16:28 Est Cr Clr Drug Dosing 72.1 ml/min 12/06/19 13:13 Est GFR ( Amer) 78.9 12/06/19 13:13 Est GFR (Non-Af Amer) 68.0 12/06/19 13:13 BUN/Creatinine Ratio 14.9 (10-20) 12/06/19 13:13 Glucose 198 mg/dl (70-99) H 12/06/19 13:13 POC Glucose 112 mg/dl (70-99) H 12/05/19 19:40 POC Glucose (other) 218 mg/dl (70-99) H 12/05/19 16:28 Lactate 2.1 mmol/L (0.4-2.0) H* 12/05/19 19:45 Calcium 6.9 mg/dl (8.5-10.1) L 12/06/19 13:13 POC Ioniz Calcium Germain 1.03 mmol/l (1.12-1.32) L 12/05/19 16:28 Ionized Calcium 0.91 mmol/L (1.12-1.32) L 12/06/19 05:55 Phosphorus 3.6 mg/dl (2.5-4.9) D 12/06/19 13:13 Magnesium 2.2 mg/dl (1.8-2.4) 12/06/19 13:13 Total Bilirubin 0.3 mg/dl (0.2-1) 12/06/19 05:55 Direct Bilirubin < 0.1 mg/dl (0-0.2) 12/06/19 05:55 AST 490 U/L (15-37) H 12/06/19 05:55 ALT 650 U/L (12-78) H 12/06/19 05:55 Alkaline Phosphatase 44 U/L (45-117) L 12/06/19 05:55 Total Creatine Kinase 211 U/L (26-192) H 12/05/19 16:18 Troponin I 0.383 ng/ml (0-0.045) H* 12/05/19 16:18 Total Protein 4.9 gm/dl (6.4-8.2) L 12/06/19 05:55 Albumin 2.7 gm/dl (3.4-5.0) L 12/06/19 05:55 Globulin 2.6 gm/dl (2.5-4.0) 12/05/19 16:18 Albumin/Globulin Ratio 1.0 (0.9-2) 12/05/19 16:18 Triglycerides 53 mg/dl (0-150) 12/06/19 05:55 Cholesterol 89 mg/dl (0-200) 12/06/19 05:55 LDL Cholesterol, Calc 32 mg/dl 12/06/19 05:55 VLDL Cholesterol, Calc 11 mg/dl 12/06/19 05:55 HDL Cholesterol 46 mg/dl 12/06/19 05:55 Cholesterol/HDL Ratio 2 12/06/19 05:55 Lipase 135 U/L (73-393) 12/05/19 16:18 TSH 1.900 uIu/ml (0.300-4.500) 12/06/19 05:55 Specimen Hemolysis 12/05/19 16:18 Urine Color [place] 12/05/19 17:05 Urine Appearance Cloudy (Clear) A 12/05/19 17:05 Urine pH 8.5 (4.5-7.5) H 12/05/19 17:05 Ur Specific Turner 1.018 (1.000-1.030) 12/05/19 17:05 Urine Protein 4+ (Negative) H 12/05/19 17:05 Urine Glucose (UA) 1+ (Negative) H 12/05/19 17:05 Urine Ketones Negative (Negative) 12/05/19 17:05 Urine Blood 3+ (Negative) H 12/05/19 17:05 Urine Nitrite Negative (Negative) 12/05/19 17:05 Urine Bilirubin Negative (Negative) 12/05/19 17:05 Urine Urobilinogen Negative (Negative) 12/05/19 17:05 Ur Leukocyte Esterase Trace (Negative) H 12/05/19 17:05 Urine WBC (Auto) >30 /hpf (0-5) H 12/05/19 17:05 Urine RBC (Auto) >30 /hpf (0-4) H 12/05/19 17:05 U Hyaline Cast (Auto) 5-10 /lpf (0-5) H 12/05/19 17:05 U Epithel Cells (Auto) >30 /lpf (0-5) H 12/05/19 17:05 Urine Bacteria (Auto) 2+ (Negative) H 12/05/19 17:05 Urine Yeast Not Reportable 12/05/19 17:05 Nasal Screen MRSA (PCR) Positive (Negative) A 12/05/19 19:00 Resident Activity Tracking Resident Involvement: Resident Care Provided Care Provided: Adult Hospital Medicine (1) Fracture, ribs Encounter type: initial encounter Fracture type: closed Laterality: bilateral Rib fracture type: multiple ribs Qualified Code(s): S22.43XA - Multiple fractures of ribs, bilateral, initial encounter for closed fracture (2) Aspiration into airway Encounter type: initial encounter Qualified Code(s): T17.908A - Unspecified foreign body in respiratory tract, part unspecified causing other injury, initial encounter
[2019-12-06] MEDS: ARTIFICIAL TEARS OP OINT 3.5 GM TUBE OP PRN ×2 (07:45→12:51)
[2019-12-06] MEDS: NORMOSOL-R 1,000 ML IV SCH ×2 (07:45→20:51)
[2019-12-06] MEDS: ASPIRIN 81 MG CHEW PO SCH (07:45)
[2019-12-06] MEDS: ATORVASTATIN 40 MG TAB PO SCH (07:45)
[2019-12-06 09:21] LABS: iSTAT Art Bld Gas pCO2 Correct 45 mmHg (35-46); iSTAT Art Bld Gas pH Corrected 7.297 (7.35-7.45); iSTAT Arterial Blood Gas HCO3 23 meg/L (19-24); iSTAT Arterial Blood Gas pCO2 56 mmHg (35-46); iSTAT Arterial Blood Gas pH 7.23 (7.35-7.45); iSTAT Arterial Blood Gas pO2 106 mmHg (80-95); iSTAT Arterial Blood Gas pO2 C 80; iSTAT Carbon Dioxide 25 mmol/L (24-31); iSTAT FiO2 30 %; iSTAT Hematocrit 38 % (37-47); iSTAT Hemoglobin 12.9 g/dl (12.0-16.0); iSTAT Potassium 3.2 mmol/L (3.3-5.0); iSTAT Site Art Line; iSTAT Sodium 140 mmol/L (135-144)
--- NOTE | 2019-12-06 10:34 | Pharmacy Report ---
Pharmacy Abx Dose Short Note - Date of Service December 06, 2019 - Assessment & Plan Assessment 64 year old F receiving VANCOMYCIN. Day # 2 of antimicrobial therapy. Plan Vancomycin * Renal function has improved significantly since admission/initial vancomycin dosing (SCr 1.19 -> 0.63, CrCl 54 -> 100ml/min). * Will adjust Vancomycin dose from 1250mg (15 mg/kg) IV q14h to 1250mg IV q10h to reflect new estimated t1/2 of ~8 hours. * Will check a trough level prior to the third maintenance dose, on 12/06 @ 0700. Pharmacy will continue to follow and will adjust dose/frequency as necessary. Thank you.
[2019-12-06] MEDS ORDERED: VANCOMYCIN HCL 1,250 MG in SODIUM CHLORIDE 0.9% 250 ML IV SCH ×2 (11:00→13:00)
[2019-12-06] MEDS ORDERED: PANTOprazole 40 MG in SYRINGE 0 ML IV SCH (11:00)
--- NOTE | 2019-12-06 11:18 | Cardiology Consultation ---
Date of Consultation The history is obtained from the nursing staff as well as the chart. Patient is known to have a history of hypertrophic cardiomyopathy. She was out for a short walk. Her was waiting for her at home as they were planning to see their family. She did not return home and he could not get a hold of her. It appears she was found down the question is whether it was witnessed or not. [facility] police were called. AED monitoring suggest she was in ventricular fibrillation. She was shocked with initially PEA and then she had return of spontaneous circulation. She was intubated and sedated she is went to the [facility] where she was found to have moderate coronary artery disease. She was placed on a hypothermic arrest protocol. And is currently in the ICU. Her is at the bedside. The rest of a complete review of systems is unobtainable December 06, 2019 History of Present Illness Attending Physician: Derrell Lucero DO Allergies Allergy/AdvReac Type Severity Reaction Status Date / Time No Known Allergies Allergy Unknown Verified 12/05/19 17:16 Home Medications Home Medications Medication Instructions Recorded Confirmed Type ASPIRIN (ASPIRIN EC) 81 mg PO Q2D #0 04/10/17 History ATORVASTATIN (LIPITOR) 10 mg PO Q2D #0 tab 04/10/17 History CALCIUM CARBONATE-VITAMIN D 2 cap PO DAILY #0 04/10/17 History (CALCIUM PLUS VITAMIN D) Fish Oil (Merrick-3) 1 cap PO DAILY #0 cap 04/10/17 History GLUCOSAMINE-CHONDROITIN 500MG/400 1 cap PO DAILY #0 04/10/17 History MG (GLUCOSAMINE-CHONDROITIN 500 MG/400 MG) Psyllium (Metamucil Fiber) 1 dose PO DAILY #0 04/10/17 History Ranitidine Hcl (ZANTAC) 150 mg PO PRN #0 tab 04/10/17 History Patient History Social History Preferred Language: Burkinan Communication Ability: Unable Cena Required: No Beliefs That Will Affect Care: None marital status: Current Living Situation: Spouse Other Information That Helps Us Care for You: No Feels Safe at Home: Yes Safety Concerns: Feels Safe At This Time Smoking Status: Never smoker Do You Dip or Chew Tobacco: No ; Second Hand Exposure: No ; Tobacco Cessation Education Requested by Patient: No Hx Alcohol Use: Yes Alcohol type: beer Hx Substance Use: No Results & Data ([facility]) Vital Signs (Past 12 Hours) Vital Signs Temp Temp Pulse Resp BP BP BP 12/06/19 10:00 32.1 C L 50 L 12 90/44 L 90/45 L 12/06/19 09:00 32.2 C L 53 L 12 90/45 L 90/44 L 12/06/19 08:00 32.3 C L 58 L 12 114/64 122/54 L 12/06/19 07:16 32.2 C L 57 L 103/55 L 12/06/19 07:10 52 L 17 12/06/19 07:00 32.1 C L 32.2 C L 57 L 12 103/55 L 12/06/19 06:00 32.1 C L 49 L 13 98/54 L 12/06/19 05:00 32 C L 44 L 12 101/52 L 12/06/19 04:39 43 L 14 12/06/19 04:15 32 C L 47 L 15 88/65 L 12/06/19 03:15 31.9 C L 31.9 C L 45 L 14 96/60 L 96/60 L 12/06/19 02:15 31.9 C L 31.9 C L 45 L 14 92/61 L 92/61 L 12/06/19 01:35 49 L 18 12/06/19 01:16 31.9 C L 48 L 98/63 L 12/06/19 01:15 31.9 C L 48 L 18 98/63 L 12/06/19 00:15 31.9 C L 31.9 C L 53 L 18 102/81 102/81 12/06/19 00:00 50 L 12/05/19 23:15 33.4 C L 33.4 C L 68 18 97/63 L 97/63 L Pulse Ox 12/06/19 10:00 98 12/06/19 09:00 95 12/06/19 08:00 100 12/06/19 07:16 100 12/06/19 07:10 100 12/06/19 07:00 100 12/06/19 06:00 100 12/06/19 05:00 100 12/06/19 04:39 98 12/06/19 04:15 100 12/06/19 03:15 100 12/06/19 02:15 100 12/06/19 01:35 100 12/06/19 01:16 100 12/06/19 01:15 100 12/06/19 00:15 100 12/06/19 00:00 12/05/19 23:15 100 she is intubated and sedated on the ventilator. HEENT: 2+ carotid upstrokes no evidence of carotid bruits her jugular venous pressure was not elevated her sclerae anicteric Lungs: Clear to auscultation bilaterally no rales rhonchi or wheezing Heart: Regular rate and rhythm no appreciable murmurs rubs Abdomen: Soft nontender nondistended decreased bowel sounds Extremities: No clubbing cyanosis or edema Psychiatric could not be assessed Neurologic she is sedated. EKG sinus bradycardia 45 bpm left ventricular hypertrophy diffuse ST-T changes concerning for hypertrophic cardiomyopathy prolonged QTC secondary to the hypothermic protocol Echocardiogram was reviewed. Impressions: 1. Sudden cardiac secondary to ventricular fibrillation 2. Hypertrophic cardiomyopathy with predominant apical variant number next 3. Previous risk factors for sudden cardiac only included a family histor y score: Normal Holter monitor fall 2018 We will continue with the hypothermic protocol. She is requiring minimal pressors at this point her LV function is normal. She is making urine. We will try to determine the actual events as to whether her episode of sudden cardiac was initially witnessed in the time from the 911 call to the time that the [facility] police shocked her. Once she is warmed we will better be able to assess her neurologic function. Depending on her neurologic function ICD would be recommended prior to discharge. At this point there is no room for beta-blockers. All this was discussed with the nursing staff, the comb tender, and the patient's at the bedside
--- NOTE | 2019-12-06 12:22 | Critical Care Progress Note ---
Date of Service December 06, 2019 Assessment & Plan (1) Cardiac arrest: Reason Critically Ill: 64-year-old female with in field V. fib arrest and shocked x1 with AED, converted to PEA and ROSC achieved in the emergency department. Taken to [facility] with no indication for intervention. Patient not following commands, now undergoing 24-hour therapeutic hypothermia. Neuro - Anoxic brain injurypatient unresponsive following ROSC after cardiac arrest -Therapeutic hypothermia protocol -CT head negative for acute process -Awaiting EEG report -Sedation: fentanyl -Avoid propofol, intermittent Versed if needed Cardiac - Cardiac arrestpatient with unwitnessed arrest while going for a walk, story unclear of who discovered patient and if she received CPR prior to first responders arrival -Please on scene attached AED and received shock x1 followed by CPR. AED report revealed V. fib arrest, attached to chart. -Patient was in PEA with EMS and was attached to the [facility] and brought out to the ED and converted to sinus rhythm with CPR and epi. -Taken to [facility], no indication for intervention, see [facility] report for details -Undergoing 24 hours therapeutic hypothermia, see above -Patient does have prolonged QTC on EKG, will monitor with frequent EKGs and avoid QTC prolonging medications -Echo from March with hyperdynamic cardiomyopathy, reviewed echo from 12/06/2019 -Maximize electrolytes -Continuous monitoring on telemetry -Cardiology consulted, will follow up recommendations. It is likely that patient will need ICD if she recovers Respiratory - Mechanically ventilatedintubated following cardiac arrest for airway protection -Current vent settings: AC VC 18/450/5/30 percent -Evidence of pulmonary infiltrates suggestive of aspiration versus pneumonia on CT chest, will add antibiotic coverage -Nebs as needed -Frequent ABGs, adjust vent settings as indicated -Monitor end-tidal CO2 and continuous pulse ox -Patient to remain intubated during therapeutic hypothermia and rewarming phase GI - N.p.o., NG tube to low wall intermittent suction Transaminitisno history of liver disease, likely shock liver following cardiac arrest -We will continue to trend LFTs and maintain map management for now RENAL/LYTES - Creatinine within normal limits, -We will continue to monitor with frequent BMPs -Continue IV fluid resuscitation and map management -Avoid nephrotoxins and renally adjust medications Lactic acidosis improving - Foleystrict I's and O's ENDO - No history of diabetes or thyroid disease -Follow-up hemoglobin A1c and TSH -ICU hyperglycemic protocol HEME - H&H stable, monitor routine CBCs ID - Patient afebrile, no leukocytosis, evidence of aspiration versus pneumonia on CT chest -MRSA positive -Urine culture unremarkable -Discontinue vancomycin we will continue ceftriaxone LINES/IV ACCESS - Right femoral central line/cooling cath, right femoral arterial line, peripheral IVs, ETT, OG tube DVT PROPHYLAXIS - SCDs, heparin (2) Transaminitis: (3) Fracture, ribs: (4) Aspiration into airway: (5) Hypertrophic cardiomyopathy: (6) Hyperlipidemia: (7) Elevated troponin: (8) Anoxic brain damage: Admission and Anticipated Discharge Date Admission Date: December 05, 2019 Subjective Had episodes of visible shivering, with surface rewarming with intravascular cooling we have been able to resolve the shivering. Decreased sedation needs, propofol has been off and epinephrine subsequently also turned off. Review of Systems Review of Systems: Unobtainable due to endotracheal tube Physical Exam Physical Exam: General: Sedated. Grimaces with mouth care, triggering vent Skin: Cool, dry, Head: Atraumatic Ears, nose, mouth and throat: airway obscured by endotracheal tube Cardiovascular: Mildly decreased capillary refill given cooling protocol Respiratory: no respiratory distress Gastrointestinal: Non distended Musculoskeletal: No deformity Results & Data Results & Data ([facility] [place]) Vital Signs (Past 12 Hours) Vital Signs Temp Temp Temp Pulse Resp BP BP 12/06/19 11:00 32.1 C L 32.1 C L 47 L 13 106/49 L 12/06/19 10:35 46 L 13 12/06/19 10:00 32.1 C L 50 L 12 90/44 L 12/06/19 09:00 32.2 C L 53 L 12 90/45 L 12/06/19 08:00 32.3 C L 58 L 12 114/64 12/06/19 07:16 32.2 C L 57 L 103/55 L 12/06/19 07:10 52 L 17 12/06/19 07:00 32.1 C L 32.2 C L 57 L 12 103/55 L 12/06/19 06:00 32.1 C L 49 L 13 98/54 L 12/06/19 05:00 32 C L 44 L 12 101/52 L 12/06/19 04:39 43 L 14 12/06/19 04:15 32 C L 47 L 15 88/65 L 12/06/19 03:15 31.9 C L 31.9 C L 45 L 14 96/60 L 96/60 L 12/06/19 02:15 31.9 C L 31.9 C L 45 L 14 92/61 L 92/61 L 12/06/19 01:35 49 L 18 12/06/19 01:16 31.9 C L 48 L 98/63 L 12/06/19 01:15 31.9 C L 48 L 18 98/63 L 12/06/19 00:15 31.9 C L 31.9 C L 53 L 18 102/81 102/81 BP Pulse Ox 12/06/19 11:00 95/58 L 98 12/06/19 10:35 98 12/06/19 10:00 90/45 L 98 12/06/19 09:00 90/44 L 95 12/06/19 08:00 122/54 L 100 12/06/19 07:16 100 12/06/19 07:10 100 12/06/19 07:00 100 12/06/19 06:00 100 12/06/19 05:00 100 12/06/19 04:39 98 12/06/19 04:15 100 12/06/19 03:15 100 12/06/19 02:15 100 12/06/19 01:35 100 12/06/19 01:16 100 12/06/19 01:15 100 12/06/19 00:15 100 Laboratory Results 12/06/19 12/06/19 12/06/19 Range/Units 09:06 05:55 05:55 WBC (4.8-10.8) K/uL RBC (4.2-5.4) M/uL Hgb (12.0-16.0) g/dL POC Hgb 12.9 (12.0-16.0) g/dl Hct (37-47) % POC Hct 38 (37-47) % MCV (80-100) fL MCH (25-34) pg MCHC (32-36) g/dL RDW Std Deviation (36.4-46.3) fL RDW Coeff of Franc[place]sc[place] (11.5-14.5) % Plt Count (130-400) K/uL MPV (7.4-10.4) fL Immature Gran % (Auto) % Neut % (Auto) % Lymph % (Auto) % [place] % (Auto) % Eos % (Auto) % Baso % (Auto) % Neut # (Auto) (1.4-6.5) K/uL Lymph # (Auto) (1.2-3.4) K/uL [place] # (Auto) (0.11-0.59) K/uL Eos # (Auto) (0-0.5) K/uL Baso # (Auto) (0-0.2) K/uL Immature Gran # (Auto) (0.00-0.02) K/uL Echinocytes PT (9.0-12.0) Seconds INR (0.9-1.1) APTT (21.0-31.0) Seconds PTT Ratio Sample Site Art Line POC pH 7.23 L (7.35-7.45) POC pCO2 56 H (35-46) mmHg POC pO2 106 H (80-95) mmHg POC HCO3 23 (19-24) ana/L POC Base Excess -4.0 (-9-1.8) ana/L ABG pH (Temp Correct) 7.297 L (7.35-7.45) ABG pCO2 (Temp Corrct 45 (35-46) mmHg POC ABG pO2 at Pt Temp 80 POC ABG O2 Sat 97.0 H (90-95) % Esau Test NA O2 Delivery Device Ventilator POC O2 Rate 12 Minute Ventilation 6.6 POC FiO2 30 % Tidal Volume 450 PEEP 5 POC Sodium 140 (135-144) mmol/L Sodium 145 (136-145) mmol/L POC Potassium 3.2 L (3.3-5.0) mmol/L Potassium 4.1 D (3.5-5.1) mmol/L POC Chloride (101-112) mmol/L Chloride 112 H (98-107) mmol/L Carbon Dioxide 27 (21-32) mmol/L POC Total CO2 25 (24-31) mmol/L Anion Gap 6.0 (3-11) POC Anion Gap (16-25) mmol/L POC BUN (7-18) mg/dl BUN 15 (7-18) mg/dl Creatinine 0.63 (0.6-1.2) mg/dl POC Creatinine (0.6-1.3) mg/dl Est Cr Clr Drug Dosing 102.9 ml/min Est GFR ( Amer) 110.6 Est GFR (Non-Af Amer) 95.5 BUN/Creatinine Ratio 24.2 H (10-20) Glucose 102 H (70-99) mg/dl POC Glucose (70-99) mg/dl POC Glucose (other) (70-99) mg/dl Estimat Average Glucose Pending Hemoglobin A1c Pending Lactate (0.4-2.0) mmol/L Calcium 6.4 L (8.5-10.1) mg/dl POC Ioniz Calcium [place] (1.12-1.32) mmol/l Ionized Calcium (1.12-1.32) mmol/L Phosphorus 2.6 (2.5-4.9) mg/dl Magnesium 2.8 H (1.8-2.4) mg/dl Total Bilirubin (0.2-1) mg/dl Direct Bilirubin (0-0.2) mg/dl AST (15-37) U/L ALT (12-78) U/L Alkaline Phosphatase (45-117) U/L Total Creatine Kinase (26-192) U/L Troponin I (0-0.045) ng/ml Total Protein (6.4-8.2) gm/dl Albumin (3.4-5.0) gm/dl Globulin (2.5-4.0) gm/dl Albumin/Globulin Ratio (0.9-2) Triglycerides (0-150) mg/dl Cholesterol (0-200) mg/dl LDL Cholesterol, Calc mg/dl VLDL Cholesterol, Calc mg/dl HDL Cholesterol mg/dl Cholesterol/HDL Ratio Lipase (73-393) U/L TSH (0.300-4.500) uIu/ml Specimen Hemolysis Urine Color Urine Appearance (Clear) Urine pH (4.5-7.5) Ur Specific Victor (1.000-1.030) Urine Protein (Negative) Urine Glucose (UA) (Negative) Urine Ketones (Negative) Urine Blood (Negative) Urine Nitrite (Negative) Urine Bilirubin (Negative) Urine Urobilinogen (Negative) Ur Leukocyte Esterase (Negative) Urine WBC (Auto) (0-5) /hpf Urine RBC (Auto) (0-4) /hpf U Hyaline Cast (Auto) (0-5) /lpf U Epithel Cells (Auto) (0-5) /lpf Urine Bacteria (Auto) (Negative) Urine Yeast Nasal Screen MRSA (PCR) (Negative) 12/06/19 12/06/19 12/06/19 Range/Units 05:55 05:55 05:55 WBC (4.8-10.8) K/uL RBC (4.2-5.4) M/uL Hgb (12.0-16.0) g/dL POC Hgb (12.0-16.0) g/dl Hct (37-47) % POC Hct (37-47) % MCV (80-100) fL MCH (25-34) pg MCHC (32-36) g/dL RDW Std Deviation (36.4-46.3) fL RDW Coeff of [place] (11.5-14.5) % Plt Count (130-400) K/uL MPV (7.4-10.4) fL Immature Gran % (Auto) % Neut % (Auto) % Lymph % (Auto) % [place] % (Auto) % Eos % (Auto) % Baso % (Auto) % Neut # (Auto) (1.4-6.5) K/uL Lymph # (Auto) (1.2-3.4) K/uL [place] # (Auto) (0.11-0.59) K/uL Eos # (Auto) (0-0.5) K/uL Baso # (Auto) (0-0.2) K/uL Immature Gran # (Auto) (0.00-0.02) K/uL Echinocytes PT 12.1 H (9.0-12.0) Seconds INR 1.2 H (0.9-1.1) APTT 30.5 (21.0-31.0) Seconds PTT Ratio 1.1 Sample Site POC pH (7.35-7.45) POC pCO2 (35-46) mmHg POC pO2 (80-95) mmHg POC HCO3 (19-24) ana/L POC Base Excess (-9-1.8) ana/L ABG pH (Temp Correct) (7.35-7.45) ABG pCO2 (Temp Corrct (35-46) mmHg POC ABG pO2 at Pt Temp POC ABG O2 Sat (90-95) % Esau Test O2 Delivery Device POC O2 Rate Minute Ventilation POC FiO2 % Tidal Volume PEEP POC Sodium (135-144) mmol/L Sodium (136-145) mmol/L POC Potassium (3.3-5.0) mmol/L Potassium (3.5-5.1) mmol/L POC Chloride (101-112) mmol/L Chloride (98-107) mmol/L Carbon Dioxide (21-32) mmol/L POC Total CO2 (24-31) mmol/L Anion Gap (3-11) POC Anion Gap (16-25) mmol/L POC BUN (7-18) mg/dl BUN (7-18) mg/dl Creatinine (0.6-1.2) mg/dl POC Creatinine (0.6-1.3) mg/dl Est Cr Clr Drug Dosing ml/min Est GFR ( Amer) Est GFR (Non-Af Amer) BUN/Creatinine Ratio (10-20) Glucose (70-99) mg/dl POC Glucose (70-99) mg/dl POC Glucose (other) (70-99) mg/dl Estimat Average Glucose Hemoglobin A1c Lactate (0.4-2.0) mmol/L Calcium (8.5-10.1) mg/dl POC Ioniz Calcium [place] (1.12-1.32) mmol/l Ionized Calcium 0.91 L (1.12-1.32) mmol/L Phosphorus (2.5-4.9) mg/dl Magnesium (1.8-2.4) mg/dl Total Bilirubin 0.3 (0.2-1) mg/dl Direct Bilirubin < 0.1 (0-0.2) mg/dl AST 490 H (15-37) U/L ALT 650 H (12-78) U/L Alkaline Phosphatase 44 L (45-117) U/L Total Creatine Kinase (26-192) U/L Troponin I (0-0.045) ng/ml Total Protein 4.9 L (6.4-8.2) gm/dl Albumin 2.7 L (3.4-5.0) gm/dl Globulin (2.5-4.0) gm/dl Albumin/Globulin Ratio (0.9-2) Triglycerides 53 (0-150) mg/dl Cholesterol 89 (0-200) mg/dl LDL Cholesterol, Calc 32 mg/dl VLDL Cholesterol, Calc 11 mg/dl HDL Cholesterol 46 mg/dl Cholesterol/HDL Ratio 2 Lipase (73-393) U/L TSH 1.900 (0.300-4.500) uIu/ml Specimen Hemolysis Urine Color Urine Appearance (Clear) Urine pH (4.5-7.5) Ur Specific [place] (1.000-1.030) Urine Protein (Negative) Urine Glucose (UA) (Negative) Urine Ketones (Negative) Urine Blood (Negative) Urine Nitrite (Negative) Urine Bilirubin (Negative) Urine Urobilinogen (Negative) Ur Leukocyte Esterase (Negative) Urine WBC (Auto) (0-5) /hpf Urine RBC (Auto) (0-4) /hpf U Hyaline Cast (Auto) (0-5) /lpf U Epithel Cells (Auto) (0-5) /lpf Urine Bacteria (Auto) (Negative) Urine Yeast Nasal Screen MRSA (PCR) (Negative) 12/06/19 12/06/19 12/06/19 Range/Units 04:40 01:38 00:44 WBC (4.8-10.8) K/uL RBC (4.2-5.4) M/uL Hgb (12.0-16.0) g/dL POC Hgb 12.6 12.2 (12.0-16.0) g/dl Hct (37-47) % POC Hct 37 36 L (37-47) % MCV (80-100) fL MCH (25-34) pg MCHC (32-36) g/dL RDW Std Deviation (36.4-46.3) fL RDW Coeff of Franc[place] (11.5-14.5) % Plt Count (130-400) K/uL MPV (7.4-10.4) fL Immature Gran % (Auto) % Neut % (Auto) % Lymph % (Auto) % [place] % (Auto) % Eos % (Auto) % Baso % (Auto) % Neut # (Auto) (1.4-6.5) K/uL Lymph # (Auto) (1.2-3.4) K/uL [place] # (Auto) (0.11-0.59) K/uL Eos # (Auto) (0-0.5) K/uL Baso # (Auto) (0-0.2) K/uL Immature Gran # (Auto) (0.00-0.02) K/uL Echinocytes PT (9.0-12.0) Seconds INR (0.9-1.1) APTT (21.0-31.0) Seconds PTT Ratio Sample Site R Femoral R Femoral POC pH 7.40 7.45 (7.35-7.45) POC pCO2 36 32 L (35-46) mmHg POC pO2 151 H 146 H (80-95) mmHg POC HCO3 22 22 (19-24) ana/L POC Base Excess -3.0 -2.0 (-9-1.8) ana/L ABG pH (Temp Correct) 7.467 H 7.527 H* (7.35-7.45) ABG pCO2 (Temp Corrct 29 L 25 L (35-46) mmHg POC ABG pO2 at Pt Temp 125 119 POC ABG O2 Sat 99.0 H 99.0 H (90-95) % Esau Test NA NA O2 Delivery Device Ventilator Ventilator POC O2 Rate 14 18 Minute Ventilation 6.5 8.1 POC FiO2 30 30 % Tidal Volume 450 450 PEEP 5 5 POC Sodium 139 141 (135-144) mmol/L Sodium 142 (136-145) mmol/L POC Potassium 4.2 2.8 L (3.3-5.0) mmol/L Potassium 3.0 L (3.5-5.1) mmol/L POC Chloride (101-112) mmol/L Chloride 112 H (98-107) mmol/L Carbon Dioxide 23 (21-32) mmol/L POC Total CO2 23 L 23 L (24-31) mmol/L Anion Gap 7.0 (3-11) POC Anion Gap (16-25) mmol/L POC BUN (7-18) mg/dl BUN 18 (7-18) mg/dl Creatinine 0.78 D (0.6-1.2) mg/dl POC Creatinine (0.6-1.3) mg/dl Est Cr Clr Drug Dosing 82.4 ml/min Est GFR ( Amer) 93.8 Est GFR (Non-Af Amer) 80.9 BUN/Creatinine Ratio 23.5 H (10-20) Glucose 135 H (70-99) mg/dl POC Glucose (70-99) mg/dl POC Glucose (other) (70-99) mg/dl Estimat Average Glucose Hemoglobin A1c Lactate (0.4-2.0) mmol/L Calcium 7.3 L (8.5-10.1) mg/dl POC Ioniz Calcium [place] (1.12-1.32) mmol/l Ionized Calcium (1.12-1.32) mmol/L Phosphorus 2.4 L (2.5-4.9) mg/dl Magnesium 1.8 (1.8-2.4) mg/dl Total Bilirubin (0.2-1) mg/dl Direct Bilirubin (0-0.2) mg/dl AST (15-37) U/L ALT (12-78) U/L Alkaline Phosphatase (45-117) U/L Total Creatine Kinase (26-192) U/L Troponin I (0-0.045) ng/ml Total Protein (6.4-8.2) gm/dl Albumin (3.4-5.0) gm/dl Globulin (2.5-4.0) gm/dl Albumin/Globulin Ratio (0.9-2) Triglycerides (0-150) mg/dl Cholesterol (0-200) mg/dl LDL Cholesterol, Calc mg/dl VLDL Cholesterol, Calc mg/dl HDL Cholesterol mg/dl Cholesterol/HDL Ratio Lipase (73-393) U/L TSH (0.300-4.500) uIu/ml Specimen Hemolysis Urine Color Urine Appearance (Clear) Urine pH (4.5-7.5) Ur Specific [place] (1.000-1.030) Urine Protein (Negative) Urine Glucose (UA) (Negative) Urine Ketones (Negative) Urine Blood (Negative) Urine Nitrite (Negative) Urine Bilirubin (Negative) Urine Urobilinogen (Negative) Ur Leukocyte Esterase (Negative) Urine WBC (Auto) (0-5) /hpf Urine RBC (Auto) (0-4) /hpf U Hyaline Cast (Auto) (0-5) /lpf U Epithel Cells (Auto) (0-5) /lpf Urine Bacteria (Auto) (Negative) Urine Yeast Nasal Screen MRSA (PCR) (Negative) 12/06/19 12/05/19 12/05/19 Range/Units 00:44 21:37 19:45 WBC (4.8-10.8) K/uL RBC (4.2-5.4) M/uL Hgb (12.0-16.0) g/dL POC Hgb 13.9 (12.0-16.0) g/dl Hct (37-47) % POC Hct 41 (37-47) % MCV (80-100) fL MCH (25-34) pg MCHC (32-36) g/dL RDW Std Deviation (36.4-46.3) fL RDW Coeff of Franc[place] (11.5-14.5) % Plt Count (130-400) K/uL MPV (7.4-10.4) fL Immature Gran % (Auto) % Neut % (Auto) % Lymph % (Auto) % [place] % (Auto) % Eos % (Auto) % Baso % (Auto) % Neut # (Auto) (1.4-6.5) K/uL Lymph # (Auto) (1.2-3.4) K/uL [place] # (Auto) (0.11-0.59) K/uL Eos # (Auto) (0-0.5) K/uL Baso # (Auto) (0-0.2) K/uL Immature Gran # (Auto) (0.00-0.02) K/uL Echinocytes PT 12.1 H (9.0-12.0) Seconds INR 1.2 H (0.9-1.1) APTT 27.0 (21.0-31.0) Seconds PTT Ratio 1.0 Sample Site R Femoral POC pH 7.27 L (7.35-7.45) POC pCO2 54 H (35-46) mmHg POC pO2 149 H (80-95) mmHg POC HCO3 25 H (19-24) ana/L POC Base Excess -2.0 (-9-1.8) ana/L ABG pH (Temp Correct) 7.294 L (7.35-7.45) ABG pCO2 (Temp Corrct 50 H (35-46) mmHg POC ABG pO2 at Pt Temp 139 POC ABG O2 Sat 99.0 H (90-95) % Esau Test Pass O2 Delivery Device Ventilator POC O2 Rate 14 Minute Ventilation 9 POC FiO2 40 % Tidal Volume 450 PEEP 5 POC Sodium 142 (135-144) mmol/L Sodium (136-145) mmol/L POC Potassium 3.4 (3.3-5.0) mmol/L Potassium (3.5-5.1) mmol/L POC Chloride (101-112) mmol/L Chloride (98-107) mmol/L Carbon Dioxide (21-32) mmol/L POC Total CO2 26 (24-31) mmol/L Anion Gap (3-11) POC Anion Gap (16-25) mmol/L POC BUN (7-18) mg/dl BUN (7-18) mg/dl Creatinine (0.6-1.2) mg/dl POC Creatinine (0.6-1.3) mg/dl Est Cr Clr Drug Dosing ml/min Est GFR ( Amer) Est GFR (Non-Af Amer) BUN/Creatinine Ratio (10-20) Glucose (70-99) mg/dl POC Glucose (70-99) mg/dl POC Glucose (other) (70-99) mg/dl Estimat Average Glucose Hemoglobin A1c Lactate 2.1 H* (0.4-2.0) mmol/L Calcium (8.5-10.1) mg/dl POC Ioniz Calcium [place] (1.12-1.32) mmol/l Ionized Calcium (1.12-1.32) mmol/L Phosphorus (2.5-4.9) mg/dl Magnesium (1.8-2.4) mg/dl Total Bilirubin (0.2-1) mg/dl Direct Bilirubin (0-0.2) mg/dl AST (15-37) U/L ALT (12-78) U/L Alkaline Phosphatase (45-117) U/L Total Creatine Kinase (26-192) U/L Troponin I (0-0.045) ng/ml Total Protein (6.4-8.2) gm/dl Albumin (3.4-5.0) gm/dl Globulin (2.5-4.0) gm/dl Albumin/Globulin Ratio (0.9-2) Triglycerides (0-150) mg/dl Cholesterol (0-200) mg/dl LDL Cholesterol, Calc mg/dl VLDL Cholesterol, Calc mg/dl HDL Cholesterol mg/dl Cholesterol/HDL Ratio Lipase (73-393) U/L TSH (0.300-4.500) uIu/ml Specimen Hemolysis Urine Color Urine Appearance (Clear) Urine pH (4.5-7.5) Ur Specific [place] (1.000-1.030) Urine Protein (Negative) Urine Glucose (UA) (Negative) Urine Ketones (Negative) Urine Blood (Negative) Urine Nitrite (Negative) Urine Bilirubin (Negative) Urine Urobilinogen (Negative) Ur Leukocyte Esterase (Negative) Urine WBC (Auto) (0-5) /hpf Urine RBC (Auto) (0-4) /hpf U Hyaline Cast (Auto) (0-5) /lpf U Epithel Cells (Auto) (0-5) /lpf Urine Bacteria (Auto) (Negative) Urine Yeast Nasal Screen MRSA (PCR) (Negative) 12/05/19 12/05/19 12/05/19 Range/Units 19:40 19:00 17:05 WBC (4.8-10.8) K/uL RBC (4.2-5.4) M/uL Hgb (12.0-16.0) g/dL POC Hgb (12.0-16.0) g/dl Hct (37-47) % POC Hct (37-47) % MCV (80-100) fL MCH (25-34) pg MCHC (32-36) g/dL RDW Std Deviation (36.4-46.3) fL RDW Coeff of [place] (11.5-14.5) % Plt Count (130-400) K/uL MPV (7.4-10.4) fL Immature Gran % (Auto) % Neut % (Auto) % Lymph % (Auto) % [place] % (Auto) % Eos % (Auto) % Baso % (Auto) % Neut # (Auto) (1.4-6.5) K/uL Lymph # (Auto) (1.2-3.4) K/uL [place] # (Auto) (0.11-0.59) K/uL Eos # (Auto) (0-0.5) K/uL Baso # (Auto) (0-0.2) K/uL Immature Gran # (Auto) (0.00-0.02) K/uL Echinocytes PT (9.0-12.0) Seconds INR (0.9-1.1) APTT (21.0-31.0) Seconds PTT Ratio Sample Site POC pH (7.35-7.45) POC pCO2 (35-46) mmHg POC pO2 (80-95) mmHg POC HCO3 (19-24) ana/L POC Base Excess (-9-1.8) ana/L ABG pH (Temp Correct) (7.35-7.45) ABG pCO2 (Temp Corrct (35-46) mmHg POC ABG pO2 at Pt Temp POC ABG O2 Sat (90-95) % Esau Test O2 Delivery Device POC O2 Rate Minute Ventilation POC FiO2 % Tidal Volume PEEP POC Sodium (135-144) mmol/L Sodium (136-145) mmol/L POC Potassium (3.3-5.0) mmol/L Potassium (3.5-5.1) mmol/L POC Chloride (101-112) mmol/L Chloride (98-107) mmol/L Carbon Dioxide (21-32) mmol/L POC Total CO2 (24-31) mmol/L Anion Gap (3-11) POC Anion Gap (16-25) mmol/L POC BUN (7-18) mg/dl BUN (7-18) mg/dl Creatinine (0.6-1.2) mg/dl POC Creatinine (0.6-1.3) mg/dl Est Cr Clr Drug Dosing ml/min Est GFR ( Amer) Est GFR (Non-Af Amer) BUN/Creatinine Ratio (10-20) Glucose (70-99) mg/dl POC Glucose 112 H (70-99) mg/dl POC Glucose (other) (70-99) mg/dl Estimat Average Glucose Hemoglobin A1c Lactate (0.4-2.0) mmol/L Calcium (8.5-10.1) mg/dl POC Ioniz Calcium [place] (1.12-1.32) mmol/l Ionized Calcium (1.12-1.32) mmol/L Phosphorus (2.5-4.9) mg/dl Magnesium (1.8-2.4) mg/dl Total Bilirubin (0.2-1) mg/dl Direct Bilirubin (0-0.2) mg/dl AST (15-37) U/L ALT (12-78) U/L Alkaline Phosphatase (45-117) U/L Total Creatine Kinase (26-192) U/L Troponin I (0-0.045) ng/ml Total Protein (6.4-8.2) gm/dl Albumin (3.4-5.0) gm/dl Globulin (2.5-4.0) gm/dl Albumin/Globulin Ratio (0.9-2) Triglycerides (0-150) mg/dl Cholesterol (0-200) mg/dl LDL Cholesterol, Calc mg/dl VLDL Cholesterol, Calc mg/dl HDL Cholesterol mg/dl Cholesterol/HDL Ratio Lipase (73-393) U/L TSH (0.300-4.500) uIu/ml Specimen Hemolysis Urine Color [place] Urine Appearance Cloudy A (Clear) Urine pH 8.5 H (4.5-7.5) Ur Specific [place] 1.018 (1.000-1.030) Urine Protein 4+ H (Negative) Urine Glucose (UA) 1+ H (Negative) Urine Ketones Negative (Negative) Urine Blood 3+ H (Negative) Urine Nitrite Negative (Negative) Urine Bilirubin Negative (Negative) Urine Urobilinogen Negative (Negative) Ur Leukocyte Esterase Trace H (Negative) Urine WBC (Auto) >30 H (0-5) /hpf Urine RBC (Auto) >30 H (0-4) /hpf U Hyaline Cast (Auto) 5-10 H (0-5) /lpf U Epithel Cells (Auto) >30 H (0-5) /lpf Urine Bacteria (Auto) 2+ H (Negative) Urine Yeast Not Reportable Nasal Screen MRSA (PCR) Positive A (Negative) 12/05/19 12/05/19 12/05/19 Range/Units 16:28 16:28 16:28 WBC (4.8-10.8) K/uL RBC (4.2-5.4) M/uL Hgb (12.0-16.0) g/dL POC Hgb 12.2 (12.0-16.0) g/dl Hct (37-47) % POC Hct 36 L (37-47) % MCV (80-100) fL MCH (25-34) pg MCHC (32-36) g/dL RDW Std Deviation (36.4-46.3) fL RDW Coeff of [place] (11.5-14.5) % Plt Count (130-400) K/uL MPV (7.4-10.4) fL Immature Gran % (Auto) % Neut % (Auto) % Lymph % (Auto) % [place] % (Auto) % Eos % (Auto) % Baso % (Auto) % Neut # (Auto) (1.4-6.5) K/uL Lymph # (Auto) (1.2-3.4) K/uL [place] # (Auto) (0.11-0.59) K/uL Eos # (Auto) (0-0.5) K/uL Baso # (Auto) (0-0.2) K/uL Immature Gran # (Auto) (0.00-0.02) K/uL Echinocytes PT 12.5 H (9.0-12.0) Seconds INR 1.2 H (0.9-1.1) APTT 27.0 (21.0-31.0) Seconds PTT Ratio 1.0 Sample Site POC pH (7.35-7.45) POC pCO2 (35-46) mmHg POC pO2 (80-95) mmHg POC HCO3 (19-24) ana/L POC Base Excess (-9-1.8) ana/L ABG pH (Temp Correct) (7.35-7.45) ABG pCO2 (Temp Corrct (35-46) mmHg POC ABG pO2 at Pt Temp POC ABG O2 Sat (90-95) % [place]au Test O2 Delivery Device POC O2 Rate Minute Ventilation POC FiO2 % [place] Volume PEEP POC Sodium 141 (135-144) mmol/L Sodium (136-145) mmol/L POC Potassium 4.0 (3.3-5.0) mmol/L Potassium (3.5-5.1) mmol/L POC Chloride 105 (101-112) mmol/L Chloride (98-107) mmol/L Carbon Dioxide (21-32) mmol/L POC Total CO2 21 L (24-31) mmol/L Anion Gap (3-11) POC Anion Gap 20.0 (16-25) mmol/L POC BUN 22 H (7-18) mg/dl BUN (7-18) mg/dl Creatinine (0.6-1.2) mg/dl POC Creatinine 1.0 (0.6-1.3) mg/dl Est Cr Clr Drug Dosing ml/min Est GFR ( Amer) Est GFR (Non-Af Amer) BUN/Creatinine Ratio (10-20) Glucose (70-99) mg/dl POC Glucose (70-99) mg/dl POC Glucose (other) 218 H (70-99) mg/dl Estimat Average Glucose Hemoglobin A1c Lactate 6.6 H* (0.4-2.0) mmol/L Calcium (8.5-10.1) mg/dl POC Ioniz Calcium [place] 1.03 L (1.12-1.32) mmol/l Ionized Calcium (1.12-1.32) mmol/L Phosphorus (2.5-4.9) mg/dl Magnesium (1.8-2.4) mg/dl Total Bilirubin (0.2-1) mg/dl Direct Bilirubin (0-0.2) mg/dl AST (15-37) U/L ALT (12-78) U/L Alkaline Phosphatase (45-117) U/L Total Creatine Kinase (26-192) U/L Troponin I (0-0.045) ng/ml Total Protein (6.4-8.2) gm/dl Albumin (3.4-5.0) gm/dl Globulin (2.5-4.0) gm/dl Albumin/Globulin Ratio (0.9-2) Triglycerides (0-150) mg/dl Cholesterol (0-200) mg/dl LDL Cholesterol, Calc mg/dl VLDL Cholesterol, Calc mg/dl HDL Cholesterol mg/dl Cholesterol/HDL Ratio Lipase (73-393) U/L TSH (0.300-4.500) uIu/ml Specimen Hemolysis Urine Color Urine Appearance (Clear) Urine pH (4.5-7.5) Ur Specific [place] (1.000-1.030) Urine Protein (Negative) Urine Glucose (UA) (Negative) Urine Ketones (Negative) Urine Blood (Negative) Urine Nitrite (Negative) Urine Bilirubin (Negative) Urine Urobilinogen (Negative) Ur Leukocyte Esterase (Negative) Urine WBC (Auto) (0-5) /hpf Urine RBC (Auto) (0-4) /hpf U Hyaline Cast (Auto) (0-5) /lpf U Epithel Cells (Auto) (0-5) /lpf Urine Bacteria (Auto) (Negative) Urine Yeast Nasal Screen MRSA (PCR) (Negative) 12/05/19 12/05/19 Range/Units 16:28 16:18 WBC 9.28 (4.8-10.8) K/uL RBC 3.96 L (4.2-5.4) M/uL Hgb 12.7 (12.0-16.0) g/dL POC Hgb (12.0-16.0) g/dl Hct 37.9 (37-47) % POC Hct (37-47) % MCV 95.7 (80-100) fL MCH 32.1 (25-34) pg MCHC 33.5 (32-36) g/dL RDW Std Deviation 43.3 (36.4-46.3) fL RDW Coeff of [place] 12.4 (11.5-14.5) % Plt Count 157 (130-400) K/uL MPV 11.2 H (7.4-10.4) fL Immature Gran % (Auto) 1.6 % Neut % (Auto) 42.0 % Lymph % (Auto) 52.5 % [place] % (Auto) 3.3 % Eos % (Auto) 0.4 % Baso % (Auto) 0.2 % Neut # (Auto) 3.89 (1.4-6.5) K/uL Lymph # (Auto) 4.87 H (1.2-3.4) K/uL [place] # (Auto) 0.31 (0.11-0.59) K/uL Eos # (Auto) 0.04 (0-0.5) K/uL Baso # (Auto) 0.02 (0-0.2) K/uL Immature Gran # (Auto) 0.15 H (0.00-0.02) K/uL Echinocytes 1+ PT (9.0-12.0) Seconds INR (0.9-1.1) APTT (21.0-31.0) Seconds PTT Ratio Sample Site POC pH (7.35-7.45) POC pCO2 (35-46) mmHg POC pO2 (80-95) mmHg POC HCO3 (19-24) ana/L POC Base Excess (-9-1.8) ana/L ABG pH (Temp Correct) (7.35-7.45) ABG pCO2 (Temp Corrct (35-46) mmHg POC ABG pO2 at Pt Temp POC ABG O2 Sat (90-95) % Esau Test O2 Delivery Device POC O2 Rate Minute Ventilation POC FiO2 % Tidal Volume PEEP POC Sodium (135-144) mmol/L Sodium 145 (136-145) mmol/L POC Potassium (3.3-5.0) mmol/L Potassium 3.5 (3.5-5.1) mmol/L POC Chloride (101-112) mmol/L Chloride 112 H (98-107) mmol/L Carbon Dioxide 20 L (21-32) mmol/L POC Total CO2 (24-31) mmol/L Anion Gap 13.0 H (3-11) POC Anion Gap (16-25) mmol/L POC BUN (7-18) mg/dl BUN 17 (7-18) mg/dl Creatinine 1.19 (0.6-1.2) mg/dl POC Creatinine (0.6-1.3) mg/dl Est Cr Clr Drug Dosing 54.0 ml/min Est GFR ( Amer) 56.3 Est GFR (Non-Af Amer) 48.5 BUN/Creatinine Ratio 14.1 (10-20) Glucose 215 H (70-99) mg/dl POC Glucose (70-99) mg/dl POC Glucose (other) (70-99) mg/dl Estimat Average Glucose Hemoglobin A1c Lactate (0.4-2.0) mmol/L Calcium 7.0 L (8.5-10.1) mg/dl POC Ioniz Calcium Germain (1.12-1.32) mmol/l Ionized Calcium (1.12-1.32) mmol/L Phosphorus (2.5-4.9) mg/dl Magnesium (1.8-2.4) mg/dl Total Bilirubin 0.4 (0.2-1) mg/dl Direct Bilirubin (0-0.2) mg/dl AST 770 H (15-37) U/L ALT 823 H (12-78) U/L Alkaline Phosphatase 54 (45-117) U/L Total Creatine Kinase 211 H (26-192) U/L Troponin I 0.383 H* (0-0.045) ng/ml Total Protein 5.3 L (6.4-8.2) gm/dl Albumin 2.7 L (3.4-5.0) gm/dl Globulin 2.6 (2.5-4.0) gm/dl Albumin/Globulin Ratio 1.0 (0.9-2) Triglycerides (0-150) mg/dl Cholesterol (0-200) mg/dl LDL Cholesterol, Calc mg/dl VLDL Cholesterol, Calc mg/dl HDL Cholesterol mg/dl Cholesterol/HDL Ratio Lipase 135 (73-393) U/L TSH (0.300-4.500) uIu/ml Specimen Hemolysis Urine Color Urine Appearance (Clear) Urine pH (4.5-7.5) Ur Specific Victor (1.000-1.030) Urine Protein (Negative) Urine Glucose (UA) (Negative) Urine Ketones (Negative) Urine Blood (Negative) Urine Nitrite (Negative) Urine Bilirubin (Negative) Urine Urobilinogen (Negative) Ur Leukocyte Esterase (Negative) Urine WBC (Auto) (0-5) /hpf Urine RBC (Auto) (0-4) /hpf U Hyaline Cast (Auto) (0-5) /lpf U Epithel Cells (Auto) (0-5) /lpf Urine Bacteria (Auto) (Negative) Urine Yeast Nasal Screen MRSA (PCR) (Negative) ECG Additional Comments: Latest EKG consistent with sinus bradycardia with first- degree AV block Coding Level of Care Code Critical Care 1st 30-74 mins Diagnoses Cardiac arrest I46.9 Transaminitis R74.0 Fracture, ribs S22.43XA Encounter type: initial encounter Fracture type: closed Laterality: bilateral Rib fracture type: multiple ribs Aspiration into airway T17.908A Encounter type: initial encounter Hypertrophic cardiomyopathy I42.2 Hyperlipidemia E78.5 Elevated troponin R74.8 Anoxic brain damage G93.1 Time Spent (min) 45 Comment I have personally spent 45 minutes of critical care time in the direct management of this patient. This is a life/limb threatening event. This includes time spent evaluating patient, direct bedside care, chart review, placing orders, interpretation of diagnostic studies, discussion with consultants, patient, and/or family members regarding treatment decisions, as well as other required patient management activities. This time is exclusive of all separately billable procedures, and teaching time and separate from and in addition to any other critical care service time. (1) Fracture, ribs Encounter type: initial encounter Fracture type: closed Laterality: bilateral Rib fracture type: multiple ribs Qualified Code(s): S22.43XA - Multiple fractures of ribs, bilateral, initial encounter for closed fracture (2) Aspiration into airway Encounter type: initial encounter Qualified Code(s): T17.908A - Unspecified foreign body in respiratory tract, part unspecified causing other injury, initial encounter
--- NOTE | 2019-12-06 12:43 | Electrocardiogram Report ---
Test Reason : Blood Pressure : / mmHG Vent. Rate : 091 BPM Atrial Rate : 091 BPM P-R Int : 188 ms QRS Dur : 118 ms QT Int : 434 ms P-R-T Axes : 077 012 128 degrees QTc Int : 533 ms Poor data quality, interpretation may be adversely affected Normal sinus rhythm Right atrial enlargement Left ventricular hypertrophy with QRS widening and repolarization abnormality Prolonged QT Abnormal ECG When compared with ECG of 10-APR-2017 11:02, No significant change was found Confirmed by Ventura Monge ([id number]) on 12/06/2019 12:43:29 PM Referred By: REFERRED SELF Confirmed By:Ventura Monge
--- NOTE | 2019-12-06 12:49 | Electrocardiogram Report ---
Test Reason : Blood Pressure : / mmHG Vent. Rate : 070 BPM Atrial Rate : 070 BPM P-R Int : 174 ms QRS Dur : 110 ms QT Int : 522 ms P-R-T Axes : 077 060 100 degrees QTc Int : 563 ms Normal sinus rhythm Left ventricular hypertrophy with repolarization abnormality Diffuse ST depression Prolonged QT Abnormal ECG When compared with ECG of 05-DEC-2019 19:12, (unconfirmed) T wave inversion less evident in Anterolateral leads Confirmed by Ventura Monge ([id number]) on 12/06/2019 12:48:48 PM Referred By: REFERRED SELF Confirmed By:Ventura Monge
[2019-12-06] MEDS: fentaNYL DRIP 1,250 MCG/250 ML BAG IV SCH ×2 (12:51→23:58)
--- NOTE | 2019-12-06 12:56 | Electrocardiogram Report ---
Test Reason : Blood Pressure : / mmHG Vent. Rate : 045 BPM Atrial Rate : 045 BPM P-R Int : 212 ms QRS Dur : 104 ms QT Int : 658 ms P-R-T Axes : 059 058 118 degrees QTc Int : 569 ms Sinus bradycardia with 1st degree A-V block Left ventricular hypertrophy with repolarization abnormality ST and T wave changes c/w HCM Prolonged QT Abnormal ECG When compared with ECG of 05-DEC-2019 23:11, (unconfirmed) IL interval has increased Vent. rate has decreased BY 25 BPM T wave inversion now evident in Anterior leads Confirmed by Ventura Monge ([id number]) on 12/06/2019 12:55:49 PM Referred By: REFERRED SELF Confirmed By:Ventura Monge
--- NOTE | 2019-12-06 13:08 | Electrocardiogram Report ---
Test Reason : Blood Pressure : / mmHG Vent. Rate : 055 BPM Atrial Rate : 055 BPM P-R Int : 194 ms QRS Dur : 110 ms QT Int : 590 ms P-R-T Axes : 056 056 094 degrees QTc Int : 564 ms Poor data quality, interpretation may be adversely affected Sinus bradycardia Left ventricular hypertrophy with repolarization abnormality Prolonged QT Abnormal ECG When compared with ECG of 06-DEC-2019 03:20, (unconfirmed) T wave inversion less evident in Anterolateral leads Confirmed by Ventura Monge ([id number]) on 12/06/2019 1:08:03 PM Referred By: REFERRED SELF Confirmed By:Ventura Monge
[2019-12-06] MEDS: MIDAZOLAM HCL 1 MG/ML 2ML VIAL IV PRN ×4 (13:09→23:33)
[2019-12-06] MEDS ORDERED: PERFLUTREN LIPID MICROSPHERE (DEFINITY) IV ONE (13:18)
[2019-12-06 13:32] LABS: INR 1.1 (0.9-1.1); Partial Thromboplastin Ratio 1.1; Partial Thromboplastin Time 29.9 Seconds (21.0-31.0); Prothrombin Time 11.5 Seconds (9.0-12.0)
[2019-12-06 14:02] LABS: BUN Creatinine Ratio 14.9 (10-20); Calcium 6.9 mg/dl (8.5-10.1); Creatinine Clr Calc Pharmacy 72.1 ml/min; Est GFR (African American) 78.9; Magnesium 2.2 mg/dl (1.8-2.4); Phosphorus 3.6 mg/dl (2.5-4.9); Potassium 3.2 mmol/L (3.5-5.1)
[2019-12-06 14:23] LABS: iSTAT Art Bld Gas pCO2 Correct 52 mmHg (35-46); iSTAT Art Bld Gas pH Corrected 7.247 (7.35-7.45); iSTAT Arterial Blood Gas HCO3 24 meg/L (19-24); iSTAT Arterial Blood Gas pCO2 64 mmHg (35-46); iSTAT Arterial Blood Gas pH 7.18 (7.35-7.45); iSTAT Arterial Blood Gas pO2 115 mmHg (80-95); iSTAT Arterial Blood Gas pO2 C 89; iSTAT Carbon Dioxide 26 mmol/L (24-31); iSTAT FiO2 30 %; iSTAT Hematocrit 37 % (37-47); iSTAT Hemoglobin 12.6 g/dl (12.0-16.0); iSTAT Potassium 3.2 mmol/L (3.3-5.0); iSTAT Site Art Line; iSTAT Sodium 141 mmol/L (135-144)
--- NOTE | 2019-12-06 17:19 | Billing Data ---
Date of Service December 06, 2019 Coding Level of Care Code 84160 Subseq Hosp Care Lvl 1
[2019-12-06 18:11] LABS: iSTAT Art Bld Gas pCO2 Correct 49 mmHg (35-46); iSTAT Arterial Blood Gas HCO3 27 meg/L (19-24); iSTAT Arterial Blood Gas pCO2 60 mmHg (35-46); iSTAT Arterial Blood Gas pH 7.26 (7.35-7.45); iSTAT Arterial Blood Gas pO2 166 mmHg (80-95); iSTAT Arterial Blood Gas pO2 C 142; iSTAT Carbon Dioxide 28 mmol/L (24-31); iSTAT FiO2 30 %; iSTAT Hematocrit 38 % (37-47); iSTAT Hemoglobin 12.9 g/dl (12.0-16.0); iSTAT Potassium 4.7 mmol/L (3.3-5.0); iSTAT Site Art Line; iSTAT Sodium 140 mmol/L (135-144)
[2019-12-06 19:59] LABS: INR 1.1 (0.9-1.1); Partial Thromboplastin Ratio 1.1; Partial Thromboplastin Time 30.8 Seconds (21.0-31.0); Prothrombin Time 11.2 Seconds (9.0-12.0)
[2019-12-06 20:24] LABS: BUN Creatinine Ratio 19.6 (10-20); Calcium 7.5 mg/dl (8.5-10.1); Creatinine Clr Calc Pharmacy 95.4 ml/min; Est GFR (African American) 107.9; Est GFR (Non-African American) 93.1; Magnesium 2.2 mg/dl (1.8-2.4); Phosphorus 3.9 mg/dl (2.5-4.9); Potassium 4.5 mmol/L (3.5-5.1)
[2019-12-06] MEDS: DEXTROSE 50% 50 ML SYRINGE IV PRN (20:43)
[2019-12-06] MEDS ORDERED: GLUCAGON FOR INJ 1 MG VIAL IM PRN (20:45)
[2019-12-06] MEDS ORDERED: CARBOHYDRATES FOR HYPOGLYCEMIA PO PRN (20:45)
[2019-12-06] MEDS ORDERED: GLUCOSE 40% GEL 15 GM TUBE PO PRN (20:45)
[2019-12-06] MEDS ORDERED: GLUCOSE 10 TABS/TUBE PO PRN (20:45)
[2019-12-06] MEDS: HEPARIN SOD 5,000 UNIT/0.5 ML VIAL SQ SCH (21:16)
[2019-12-06] MEDS: cefTRIAXone SODIUM 2,000 MG in DEXTROSE 5% 50 ML IV SCH (21:20)
[2019-12-06 22:29] LABS: iSTAT Art Bld Gas pCO2 Correct 47 mmHg (35-46); iSTAT Art Bld Gas pH Corrected 7.335 (7.35-7.45); iSTAT Arterial Blood Gas HCO3 26 meg/L (19-24); iSTAT Arterial Blood Gas pCO2 57 mmHg (35-46); iSTAT Arterial Blood Gas pH 7.27 (7.35-7.45); iSTAT Arterial Blood Gas pO2 160 mmHg (80-95); iSTAT Arterial Blood Gas pO2 C 135; iSTAT Carbon Dioxide 28 mmol/L (24-31); iSTAT FiO2 30 %; iSTAT Hematocrit 36 % (37-47); iSTAT Hemoglobin 12.2 g/dl (12.0-16.0); iSTAT Potassium 4.7 mmol/L (3.3-5.0); iSTAT Site Art Line; iSTAT Sodium 140 mmol/L (135-144)
[2019-12-07 01:51] LABS: INR 1.1 (0.9-1.1); Partial Thromboplastin Ratio 1.2; Partial Thromboplastin Time 32.5 Seconds (21.0-31.0); Prothrombin Time 11.2 Seconds (9.0-12.0)
[2019-12-07 02:05] LABS: BUN Creatinine Ratio 25.5 (10-20); Calcium 7.5 mg/dl (8.5-10.1); Creatinine Clr Calc Pharmacy 108.1 ml/min; Est GFR (African American) 112.4; Magnesium 2.2 mg/dl (1.8-2.4); Potassium 4.5 mmol/L (3.5-5.1)
[2019-12-07 02:13] LABS: iSTAT Art Bld Gas pCO2 Correct 41 mmHg (35-46); iSTAT Art Bld Gas pH Corrected 7.381 (7.35-7.45); iSTAT Arterial Blood Gas HCO3 25 meg/L (19-24); iSTAT Arterial Blood Gas pCO2 48 mmHg (35-46); iSTAT Arterial Blood Gas pH 7.33 (7.35-7.45); iSTAT Arterial Blood Gas pO2 166 mmHg (80-95); iSTAT Arterial Blood Gas pO2 C 146; iSTAT Carbon Dioxide 27 mmol/L (24-31); iSTAT FiO2 30 %; iSTAT Hematocrit 38 % (37-47); iSTAT Hemoglobin 12.9 g/dl (12.0-16.0); iSTAT Potassium 4.2 mmol/L (3.3-5.0); iSTAT Site Art Line; iSTAT Sodium 139 mmol/L (135-144)
[2019-12-07 02:15] LABS: Phosphorus 3.3 mg/dl (2.5-4.9)
[2019-12-07] MEDS: MIDAZOLAM HCL 1 MG/ML 2ML VIAL IV PRN (02:24)
[2019-12-07] MEDS: DEXTROSE 50% 50 ML SYRINGE IV PRN (03:11)
[2019-12-07 04:49] LABS: Bilirubin Direct 0.1 mg/dl (0-0.2); Bilirubin,Total 0.4 mg/dl (0.2-1); Total Protein 5.9 gm/dl (6.4-8.2)
[2019-12-07 06:01] LABS: iSTAT Allen Test Pass; iSTAT Arterial Blood Gas HCO3 27 meg/L (19-24); iSTAT Arterial Blood Gas pCO2 53 mmHg (35-46); iSTAT Arterial Blood Gas pH 7.31 (7.35-7.45); iSTAT Arterial Blood Gas pO2 149 mmHg (80-95); iSTAT Carbon Dioxide 28 mmol/L (24-31); iSTAT FiO2 30 %; iSTAT Site Art Line
[2019-12-07 06:27] LABS: Estimated Average Glucose 114 mg/dl; Hemoglobin A1C 5.6 % (4.5-5.6)
[2019-12-07] MEDS ORDERED: VANCOMYCIN TROUGH ONE ×2 (06:30→16:30)
--- NOTE | 2019-12-07 06:56 | Hospitalist Progress Note ---
Date of Service December 07, 2019 Assessment & Plan (1) Cardiac arrest: 64 yo female with PMHx HOCM admitted to the ICU after suffering an out of hospital cardiac arrest while walking, achieved ROSC after AED shock and CPR en route to hospital. Cardiac arrest in patient with Hx HOCM: - Care by ICU. Hospitalist service following. - Out of hospital, had AED shock x1, epi total 5mg IV, CPR performed in field with ROSC in ED. - On arrival troponin 0.383 initial in setting of cardiac arrest from likely ventricular dysrhythmia. - Cardiac cath performed without stentable disease as below: - LM - Short, 20% ostial - LAD - medium caliber vessel which wraps around apex. Mid LAD after first diagonal with 50% stenosis. Medium caliber second diagonal with 60 to 70% ostial stenosis - Circumflex - medium caliber vessel, luminal irregularities. Gives off to OM's and a distal left PLB. - RCA - dominant, large caliber vessel, 40 to 50% ostial stenosis improved with vasodilators. Remainder vessel without significant disease - Weaned off of ventilation with good oxygen saturation on 2LNC. - Completed therapeutic hypothermia protocol. - CT head and CT cervical spine both negative for acute injury. - EEG pending. - Cardiac event likely cardiac arrest 2/2 HOCM-induced ventricular arrhythmia, possibly in some part 2/2 dehydration during exercising in the warm weather. - Cardiology consulted and appreciate recommendations: - Start metoprolol 12.5mg BID. - Will need evaluation for an AICD while admitted. ? Aspiration pneumonitis vs. pneumonia vs. atelectasis: - Initial CT scan showed bibasilar atelectatic changes vs. aspiration pneumonitis vs. pneumonia. - Patient continues to be afebrile and without leukocytosis; will hold Abx at this time. - Suspect 2/2 atelectasis; encouraged continued use of incentive spirometer. Transaminitis likely 2/2 Shock Liver: - On admission AST 770; ALT 823. - Continues to downtrend following continued recovery from acute cardiac event. Rib fractures: - Seen on CXR. - Consistent with CPR in field. - Patient without complaints at this time, oxygenating well, no flail chest. - Tylenol PRN rib pain. Code: Full FEN/GI: Heart Healthy DVT ppx: Heparin Dispo: Full admit, ICU care (2) Fracture, ribs: (3) Hypertrophic cardiomyopathy: (4) Hyperlipidemia: (5) Transaminitis: (6) Aspiration into airway: (7) Elevated troponin: Admission and Anticipated Discharge Date Admission Date: December 05, 2019 Supervising Physician Co-Signing Physician Notes I also saw the patient with the resident physician and confirmed nicolas portions of the history and physical exam. Upon our exam early afternoon, she is resting in bed without complaints other than anterior chest wall pain secondary to CPR. She is unsure of where she is at first ([place]), but corrects herself rather quickly ([place]). She also has difficulty with knowledge of the current president. She also does not recall the visit of the resident earlier today. HCM Sudden cardiac secondary to ventricular fibrillation x AED shock x1 S/P ICE Alert; now warmed Overall, she looks remarkably well. Hopeful that the short term recall issues and confusion (anoxic encephalopathy) continue to improve; monitor. Discussed need for implantable defibrillator prior to discharge Other diagnosis and lab abnormalaties as noted above. Subjective Patient was successfully extubated and warmed this AM. Is conversational, though intermittently confused. Denies any chest pain, palpitations, shortness of breath, chest wall discomfort, nausea or vomiting. Does not report any recent illness. Does not recall going on her walk and does not recall the events leading up to her cardiac arrest, but does in general know "I take a walk every day". Has followed with Dr. Monge in the past for her HOCM. Only complaint today is that her throat is sore making it harder for her to talk. Review of Systems Review of Systems: All systems reviewed & are unremarkable except as noted in HPI & below Constitutional: no fever, no chills and no malaise Respiratory: no cough and no dyspnea Cardiovascular: no chest pain, no palpitations and no edema Gastrointestinal: no abdominal pain, no constipation and no diarrhea/loose stools Genitourinary: no dysuria and no hematuria Physical Exam Constitutional: WD/WN, vitals as above Eyes: PERRL, conjunctivae normal, anicteric sclerae ENMT: external ear and nose normal, oropharynx normal Neck: normal visual inspection Respiratory: normal respiratory effort, lungs clear to auscultation Cardiovascular: Rate/Rhythm: regular rate and regular rhythm Heart Sounds: + murmur (3/6 systolic murmur best heard over L middle sternal border) Gastrointestinal (Abdomen): normal bowel sounds, soft, nontender, no hepatosplenomegaly Musculoskeletal: no cyanosis or clubbing, extremities motor strength 5/5 Skin: no rashes, warm and dry Neurologic: AAOx3, normal speech. PERRLA, EOMI, no nystagmus. Normal visual acuity bilaterally. Bilateral UE, LE, and face without sensory or motor deficits. No pronator drift. Psychiatric: A+Ox3, euthymic affect Results & Data Results & Data ([facility]) Vital Signs (Past 12 Hours) Vital Signs Temp Temp Pulse Resp BP BP Pulse Ox 12/07/19 06:11 70 15 99 12/07/19 06:00 35.5 C L 35.5 C L 74 5 L 127/60 125/62 99 12/07/19 05:00 35.1 C L 35.1 C L 61 14 105/49 L 112/58 L 99 12/07/19 04:00 34.5 C L 34.5 C L 69 14 126/62 131/67 99 12/07/19 03:00 33.9 C L 33.9 C L 58 L 16 96/54 L 84/53 L 100 12/07/19 02:32 73 16 100 12/07/19 02:00 33.4 C L 33.4 C L 69 14 126/61 121/68 100 12/07/19 01:00 33.1 C L 33.1 C L 66 14 121/50 L 109/73 100 12/07/19 00:00 32.4 C L 32.4 C L 53 L 16 98/53 L 98/59 L 100 12/06/19 23:00 32.4 C L 32.4 C L 67 14 122/71 148/71 H 99 12/06/19 22:18 55 L 18 100 12/06/19 22:00 32.3 C L 32.2 C L 54 L 13 83/51 L 103/51 L 100 12/06/19 21:01 56 L 22 100 12/06/19 21:00 32.2 C L 32.3 C L 52 L 14 92/46 L 101/47 L 100 12/06/19 20:00 32.4 C L 32.4 C L 56 L 13 91/45 L 98/52 L 100 12/06/19 19:00 32.5 C L 32.4 C L 48 L 14 91/47 L 102/49 L 100 Resident Activity Tracking Resident Involvement: Resident Care Provided Care Provided: Adult Hospital Medicine (1) Fracture, ribs Encounter type: initial encounter Fracture type: closed Laterality: bilateral Rib fracture type: multiple ribs Qualified Code(s): S22.43XA - Multiple fractures of ribs, bilateral, initial encounter for closed fracture (2) Aspiration into airway Encounter type: initial encounter Qualified Code(s): T17.908A - Unspecified foreign body in respiratory tract, part unspecified causing other injury, initial encounter
--- NOTE | 2019-12-07 07:38 | XRay Report ---
XR chest 1V portable HISTORY: resp failure COMPARISON: Chest 12/06/2019. FINDINGS: Endotracheal tube is positioned approximately 4 cm from the christopher. Nasogastric tube termin ates in the stomach. No pneumothorax. No pleural effusions. Slight prominence of interstitial marking s and mild cardiomegaly persists. Suggestion of a catheter tip within the IVC extending into the righ t atrium. This is unchanged. No new focal lung consolidations. IMPRESSION: 1. Satisfactory support line placement. 2. Cardiomegaly with mild diffuse interstitial thickening persists. No new focal lung consolidations. ACT 112: Negative or not required by law. Electronically signed by: Grupo Schneider M.D. 12/07/2019 7:37 AM
[2019-12-07 07:50] LABS: INR 1.1 (0.9-1.1); Partial Thromboplastin Ratio 1.2; Partial Thromboplastin Time 33.1 Seconds (21.0-31.0); Prothrombin Time 11.2 Seconds (9.0-12.0)
[2019-12-07] MEDS: fentaNYL DRIP 1,250 MCG/250 ML BAG IV SCH (08:10)
[2019-12-07 08:15] LABS: BUN Creatinine Ratio 24.1 (10-20); Calcium 7.9 mg/dl (8.5-10.1); Creatinine Clr Calc Pharmacy 105.1 ml/min; Est GFR (African American) 110.6; Est GFR (Non-African American) 95.5; Magnesium 2.1 mg/dl (1.8-2.4); Phosphorus 2.8 mg/dl (2.5-4.9); Potassium 3.7 mmol/L (3.5-5.1)
--- NOTE | 2019-12-07 08:45 | Critical Care Progress Note ---
Date of Service December 07, 2019 Assessment & Plan (1) Cardiac arrest: Reason Critically Ill: 64-year-old female with in field V. fib arrest and shocked x1 with AED, converted to PEA and ROSC achieved in the emergency department. Taken to Senior Strategy Analyst with no indication for intervention. Patient not following commands, now undergoing 24-hour therapeutic hypothermia. 24-hour events: Patient completed therapeutic hypothermia protocol and was rewarmed. She completed an SBT this morning and was doing well. She has been extubated and is awake alert and conversant. She remains hemodynamically stable. Recommendations Neuro -completed therapeutic hypothermia protocol. She appears neurologically intact currently. Continue to follow clinically Cardiac -out of hospital cardiac arrest. History of hypertrophic apical cardiomyopathy. Grade 1 diastolic dysfunction is noted. She is hemodynamically stable currently. Defer additional management to cardiology. Will likely need evaluation for AICD prior to discharge. Will need physical therapy and Occupational Therapy consults. We will keep cooling catheter in for now to avoid rebound hyperthermia 4-hour period of time and then should be able to get catheter discontinued. Respiratory -now extubated on nasal cannula. Continue pulmonary toilet with incentive spirometry as tolerated and wean oxygen to maintain saturations at or above 88%. Initial CT scan showed bibasilar atelectatic changes. She is afebrile at this point time. Antibiotics were initiated for possible pneumonia, however no cultures were obtained and white count is normal. Seems reasonable to hold antibiotics at this point time. Analgesia for rib fractures. GI -LFTs improving, no need to continue to trend. If does well may advance to ice chips later today. Will need speech therapy evaluation for swallowing. RENAL/LYTES -no current issues. Urine output adequate. Electrolytes and acid- base status appropriate. Mildly decreased calcium which will be repleted today - Foleystrict I's and O's ENDO -glycemic control per ICU protocol. No current issues otherwise HEME - No current issues, daily CBC ID -hold antibiotics follow fever curve and white blood cell count. LINES/IV ACCESS - Right femoral central line/cooling cath, right femoral arterial line, peripheral IVs, DVT PROPHYLAXIS - SCDs, heparin (2) Transaminitis: (3) Aspiration into airway: Admission and Anticipated Discharge Date Admission Date: December 05, 2019 Subjective Patient seen and examined this morning. She is awake and alert and following commands. She initially failed an SBT early but it was on higher doses of fentanyl. Did well and is now been extubated Review of Systems Review of Systems: All systems reviewed & are unremarkable except as noted in HPI & below Physical Exam Constitutional: WD/WN, vitals as above Neck: trachea midline, no thyromegaly Respiratory: normal respiratory effort, lungs clear to auscultation Cardiovascular: RRR, no murmur, no edema Gastrointestinal (Abdomen): normal bowel sounds, soft, nontender, no hepatosplenomegaly Musculoskeletal: Extremities: extremities normal to inspection Skin: no rashes, warm and dry Neurologic: Nonfocal exam Lymphatic: no cervical lymphadenopathy Results & Data Results & Data ([facility]) Vital Signs (Past 12 Hours) Vital Signs Temp Temp Pulse Resp BP BP Pulse Ox 12/07/19 07:20 76 15 99 12/07/19 07:15 36.2 C L 36.2 C L 76 15 100/54 L 113/76 98 12/07/19 06:11 70 15 99 12/07/19 06:00 35.5 C L 35.5 C L 74 5 L 127/60 125/62 99 12/07/19 05:00 35.1 C L 35.1 C L 61 14 105/49 L 112/58 L 99 12/07/19 04:00 34.5 C L 34.5 C L 69 14 126/62 131/67 99 12/07/19 03:00 33.9 C L 33.9 C L 58 L 16 96/54 L 84/53 L 100 12/07/19 02:32 73 16 100 12/07/19 02:00 33.4 C L 33.4 C L 69 14 126/61 121/68 100 12/07/19 01:00 33.1 C L 33.1 C L 66 14 121/50 L 109/73 100 12/07/19 00:00 32.4 C L 32.4 C L 53 L 16 98/53 L 98/59 L 100 12/06/19 23:00 32.4 C L 32.4 C L 67 14 122/71 148/71 H 99 12/06/19 22:18 55 L 18 100 12/06/19 22:00 32.3 C L 32.2 C L 54 L 13 83/51 L 103/51 L 100 12/06/19 21:01 56 L 22 100 12/06/19 21:00 32.2 C L 32.3 C L 52 L 14 92/46 L 101/47 L 100 Laboratory Results 12/05/19 16:28 12/07/19 07:24 Diagnostic Findings Chest x-ray this morning was independently reviewed prior to extubation. Endotracheal tube was slightly high. Lungs were free of infiltrate. No obvious cardio pulmonary abnormality Coding Level of Care Code 86542 Subs Hosp Care Lv 3 Diagnoses Cardiac arrest I46.9 Transaminitis R74.0 Aspiration into airway T17.908A Encounter type: initial encounter (1) Aspiration into airway Encounter type: initial encounter Qualified Code(s): T17.908A - Unspecified foreign body in respiratory tract, part unspecified causing other injury, initial encounter
--- NOTE | 2019-12-07 08:50 | Cardiology Progress Note ---
Date of Service December 07, 2019 Subjective She was extubated. She has now fully warm. She answers questions. She does have some underlying confusion but given everything she has been through she looks remarkably well. She denies any chest pain or chest pressure even with her rib fractures. She denies any shortness of breath even with the concern for aspiration in the field. She denies any palpitations or fluttering. Results & Data Vital Signs (Past 12 Hours) Vital Signs Temp Temp Pulse Resp BP BP Pulse Ox 12/07/19 08:30 36.7 C 36.7 C 78 12 124/49 L 116/54 L 98 12/07/19 07:20 76 15 99 12/07/19 07:15 36.2 C L 36.2 C L 76 15 100/54 L 113/76 98 12/07/19 06:11 70 15 99 12/07/19 06:00 35.5 C L 35.5 C L 74 5 L 127/60 125/62 99 12/07/19 05:00 35.1 C L 35.1 C L 61 14 105/49 L 112/58 L 99 12/07/19 04:00 34.5 C L 34.5 C L 69 14 126/62 131/67 99 12/07/19 03:00 33.9 C L 33.9 C L 58 L 16 96/54 L 84/53 L 100 12/07/19 02:32 73 16 100 12/07/19 02:00 33.4 C L 33.4 C L 69 14 126/61 121/68 100 12/07/19 01:00 33.1 C L 33.1 C L 66 14 121/50 L 109/73 100 12/07/19 00:00 32.4 C L 32.4 C L 53 L 16 98/53 L 98/59 L 100 12/06/19 23:00 32.4 C L 32.4 C L 67 14 122/71 148/71 H 99 12/06/19 22:18 55 L 18 100 12/06/19 22:00 32.3 C L 32.2 C L 54 L 13 83/51 L 103/51 L 100 12/06/19 21:01 56 L 22 100 12/06/19 21:00 32.2 C L 32.3 C L 52 L 14 92/46 L 101/47 L 100 HEENT: 2+ carotid upstrokes no evidence of carotid bruits her jugular venous pressure was not elevated her sclerae anicteric Lungs: Clear to auscultation bilaterally no rales rhonchi or wheezing Heart: Regular rate and rhythm, 2/6 VENKATESH upper RSB Abdomen: Soft nontender nondistended decreased bowel sounds Extremities: No clubbing cyanosis or edema Psychiatric affect appropriate Neurologic She is awake and responds, some confusion and short term memory issues Findings: Cath LM -Short, 20% ostial LAD -medium caliber vessel which wraps around apex. Mid LAD after first diagonal with 50% stenosis. Medium caliber second diagonal with 60 to 70% ostial stenosis Circumflex -medium caliber vessel, luminal irregularities. Gives off to OM's and a distal left PLB. RCA -dominant, large caliber vessel, 40 to 50% ostial stenosis improved with vasodilators. Remainder vessel without significant disease LVEDP -10 EKG sinus bradycardia 45 bpm left ventricular hypertrophy diffuse ST-T changes concerning for hypertrophic cardiomyopathy prolonged QTC secondary to the hypothermic protocol Echocardiogram was reviewed. Impressions: 1. Sudden cardiac secondary to ventricular fibrillation x AED shock x1 2. Hypertrophic cardiomyopathy with predominant apical variant number 3. Previous risk factors for sudden cardiac only included a family history only 4. Moderate CAD 5. S/P ICE Alert; now warmed 5. Short runs of nonsustained monomorphic VT on the monitor 12/06/2019 She is extubated. She does have some short-term memory confusion. But given everything she has been through it is not surprising. In addition her sedation was just stopped this morning. We will add metoprolol 12-1/2 mg twice daily with appropriate holds. Her QTC remains prolonged. she will have an EKG done this morning. I would keep her magnesium greater than 2 which it is this morning and her potassium greater than 4 She will have a swallowing study to assess her ability to eat this morning. Once she is awake fully she will need a defibrillator prior to discharge. I did discuss this with her this morning. In the past she has been rather reticent about considering testing even knowing her family history of hypertrophic cardiomyopathy. All this was discussed with the hospitalist service, the mobile ui developer and the nursing staff
[2019-12-07] MEDS ORDERED: CALCIUM CHLORIDE 10% 500 MG in SODIUM CHLORIDE 0.9% 50 ML IV ONE (09:15)
[2019-12-07] MEDS: METOPROLOL TARTRATE 25 MG TAB PO SCH ×2 (09:30→20:56)
[2019-12-07] MEDS: ATORVASTATIN 40 MG TAB PO SCH (09:30)
[2019-12-07] MEDS: HEPARIN SOD 5,000 UNIT/0.5 ML VIAL SQ SCH ×2 (09:31→20:55)
[2019-12-07] MEDS: NORMOSOL-R 1,000 ML IV SCH (09:31)
[2019-12-07] MEDS ORDERED: POTASSIUM CHLORIDE 20 MEQ TABCR PO ONE (10:45)
[2019-12-07] MEDS: D5W AND 1/2NSS + 20MEQ KCL 20 MEQ/1,000 ML BAG IV SCH (11:05)
[2019-12-07] MEDS: POTASSIUM CHLORIDE / WTR 10 MEQ/100 ML PLCT IV SCH ×4 (11:06→14:57)
[2019-12-07 12:24] LABS: iSTAT Hematocrit 36 % (37-47); iSTAT Hemoglobin 12.2 g/dl (12.0-16.0); iSTAT Potassium 3.3 mmol/L (3.3-5.0); iSTAT Sodium 141 mmol/L (135-144)
[2019-12-07 12:25] LABS: iSTAT Arterial Blood Gas HCO3 21 meg/L (19-24); iSTAT Arterial Blood Gas pCO2 48 mmHg (35-46); iSTAT Arterial Blood Gas pH 7.24 (7.35-7.45); iSTAT Arterial Blood Gas pO2 119 mmHg (80-95); iSTAT Carbon Dioxide 22 mmol/L (24-31)
[2019-12-07 12:26] LABS: iSTAT Sample Type Arterial
--- NOTE | 2019-12-07 14:10 | Electrocardiogram Report ---
Test Reason : Blood Pressure : / mmHG Vent. Rate : 088 BPM Atrial Rate : 088 BPM P-R Int : 190 ms QRS Dur : 108 ms QT Int : 448 ms P-R-T Axes : 077 031 153 degrees QTc Int : 542 ms Normal sinus rhythm Possible Left atrial enlargement Left ventricular hypertrophy with repolarization abnormality Prolonged QT Abnormal ECG When compared with ECG of 10-APR-2017 11:02, QT has lengthened Confirmed by Evin Martinez ([id number]) on 12/07/2019 2:10:05 PM Referred By: REFERRED SELF Confirmed By:Scar Martinez
--- NOTE | 2019-12-07 14:13 | Electrocardiogram Report ---
Test Reason : Blood Pressure : / mmHG Vent. Rate : 045 BPM Atrial Rate : 045 BPM P-R Int : 192 ms QRS Dur : 106 ms QT Int : 676 ms P-R-T Axes : 055 043 063 degrees QTc Int : 584 ms Poor data quality, interpretation may be adversely affected Sinus bradycardia Possible Left atrial enlargement Left ventricular hypertrophy Prolonged QT Abnormal ECG When compared with ECG of 06-DEC-2019 07:37, No significant change was found Confirmed by Evin Martinez ([id number]) on 12/07/2019 2:12:58 PM Referred By: REFERRED SELF Confirmed By:Scar Martinez
--- NOTE | 2019-12-07 14:14 | Electrocardiogram Report ---
Test Reason : Blood Pressure : / mmHG Vent. Rate : 043 BPM Atrial Rate : 043 BPM P-R Int : 190 ms QRS Dur : 110 ms QT Int : 692 ms P-R-T Axes : 050 054 091 degrees QTc Int : 584 ms Poor data quality, interpretation may be adversely affected Marked sinus bradycardia Moderate voltage criteria for LVH, may be normal variant Nonspecific ST and T wave abnormality Prolonged QT Abnormal ECG When compared with ECG of 06-DEC-2019 13:06, (unconfirmed) No significant change was found Confirmed by Evin Martinez ([id number]) on 12/07/2019 2:14:13 PM Referred By: REFERRED SELF Confirmed By:Scar Martinez
[2019-12-08 05:04] LABS: Basophils # (auto) 0.01 K/uL (0-0.2); Basophils % (auto) 0.1 %; Eosinophils # (auto) 0.02 K/uL (0-0.5); Eosinophils % (auto) 0.3 %; Hematocrit (blood only) 34.1 % (37-47); Hemoglobin 11.7 g/dL (12.0-16.0); Immature Granulocytes # (auto) 0.01 K/uL (0.00-0.02); Immature Granulocytes % (auto) 0.1 %; Lymphocytes # (auto) 0.66 K/uL (1.2-3.4); Lymphocytes % (auto) 9.6 %; Mean Corpuscular Hemoglobin 32.4 pg (25-34); Mean Corpuscular Hgb Conc 34.3 g/dL (32-36); Mean Corpuscular Volume 94.5 fL (80-100); Mean Platelet Volume 11.3 fL (7.4-10.4); Monocytes # (auto) 0.59 K/uL (0.11-0.59); Monocytes % (auto) 8.6 %; Neutrophils # (auto) 5.57 K/uL (1.4-6.5); Neutrophils % (auto) 81.3 %; Platelet Count 121 K/uL (130-400); RDW Coefficient of Variation 12.6 % (11.5-14.5); RDW Standard Deviation 43.5 fL (36.4-46.3); Red Blood Count 3.61 M/uL (4.2-5.4); White Blood Count 6.86 K/uL (4.8-10.8)
[2019-12-08 05:46] LABS: Albumin Level 2.8 gm/dl (3.4-5.0); BUN Creatinine Ratio 21.3 (10-20); Bilirubin Direct 0.1 mg/dl (0-0.2); Bilirubin,Total 0.5 mg/dl (0.2-1); Calcium 7.9 mg/dl (8.5-10.1); Creatinine Clr Calc Pharmacy 105.1 ml/min; Est GFR (African American) 110.6; Est GFR (Non-African American) 95.5; Magnesium 1.8 mg/dl (1.8-2.4); Phosphorus 2.1 mg/dl (2.5-4.9); Potassium 4.4 mmol/L (3.5-5.1); Total Protein 5.8 gm/dl (6.4-8.2)
--- NOTE | 2019-12-08 07:08 | Hospitalist Progress Note ---
Date of Service December 08, 2019 Assessment & Plan (1) Cardiac arrest: 64 yo female with PMHx HOCM admitted to the ICU after suffering an out of hospital cardiac arrest while walking, achieved ROSC after AED shock and CPR en route to hospital. Cardiac arrest in patient with Hx HOCM: - Out of hospital, had AED shock x1, epi total 5mg IV, CPR performed in field with ROSC in ED. - On arrival troponin 0.383 initial in setting of cardiac arrest from likely ventricular dysrhythmia. - Cardiac cath performed without stentable disease as below: - LM - Short, 20% ostial - LAD - medium caliber vessel which wraps around apex. Mid LAD after first diagonal with 50% stenosis. Medium caliber second diagonal with 60 to 70% ostial stenosis - Circumflex - medium caliber vessel, luminal irregularities. Gives off to OM's and a distal left PLB. - RCA - dominant, large caliber vessel, 40 to 50% ostial stenosis improved with vasodilators. Remainder vessel without significant disease - Weaned off of ventilation with good oxygen saturation on 2LNC. Continue to wean as tolerated. - Completed therapeutic hypothermia protocol. - CT head and CT cervical spine both negative for acute injury. - Cardiac event likely cardiac arrest 2/2 HOCM-induced ventricular arrhythmia, possibly in some part 2/2 dehydration during exercising in the warm weather. - Cardiology consulted and appreciate recommendations: - Start metoprolol tartrate 12.5mg BID. - Atorvastatin increased to 40mg daily. - Clean Up Worker to see for likely AICD prior to discharge. - Continue home aspirin. - Stable for transfer out of ICU level of care. Continue telemetry. Anoxic encephalopathy: - Patient with cardiac arrest as above. - Continues to have difficulty with short time memory. - Suspect will have some element of return to normal memory, however unclear at this time how much. - CT head negative for acute injury. - EEG performed, read pending. Neurology consult placed and appreciate recommendations. ? Aspiration pneumonitis vs. pneumonia vs. atelectasis: - Initial CT scan showed bibasilar atelectatic changes vs. aspiration pneumonitis vs. pneumonia. - Patient continues to be afebrile and without leukocytosis; will hold Abx at this time. - Suspect 2/2 atelectasis; encouraged continued use of incentive spirometer. Transaminitis likely 2/2 Shock Liver: - On admission AST 770; ALT 823. - Continues to downtrend following continued recovery from acute cardiac event. Rib fractures: - Seen on CXR. - Consistent with CPR in field. - Patient without complaints at this time, oxygenating well, no flail chest. - Tylenol PRN rib pain. Code: Full FEN/GI: Heart Healthy DVT ppx: Heparin Dispo: PCU/Telemetry; for ICD placement this admission (2) Fracture, ribs: (3) Hypertrophic cardiomyopathy: (4) Hyperlipidemia: (5) Transaminitis: (6) Aspiration into airway: (7) Elevated troponin: Admission and Anticipated Discharge Date Admission Date: December 05, 2019 Supervising Physician Co-Signing Physician Notes I also saw the patient the resident physician and confirmed nicolas portions of the history and physical examination. At the time of our examination, the patient was seated at bedside with her . She denies any chest pain or shortness of breath; she still has some mild anterior chest wall tenderness secondary to cardiopulmonary resuscitation efforts. She still having difficulty with short-term memory; she does not recall conversations from yesterday and she is having difficulty understanding information presented today. Did discuss with the patient and that we are hopeful this will improve although it is difficult to predict how quickly into what extent she will see improvement. Also discussed the case with cardiology; discussed with patient need for implantable defibrillator prior to discharge for secondary prevention. Subjective Patient without acute events overnight. Still with poor short term memory, does not recall meeting me or seeing Dr. Monge yesterday. Some collateral history gathered by who states that normally she is very active and independent of all ADLs. She does not complain of chest pain, palpitations, SOB, dizziness or headaches, constipation or diarrhea, no recent illness, no nausea or vomiting. Tolerating food ok. No pain with swallowing. Review of Systems Review of Systems: All systems reviewed & are unremarkable except as noted in HPI & below Constitutional: no fever, no chills and no malaise Respiratory: no cough and no dyspnea Cardiovascular: no chest pain, no palpitations and no edema Gastrointestinal: no abdominal pain, no constipation and no diarrhea/loose stools Genitourinary: no dysuria and no hematuria Physical Exam Constitutional: WD/WN, vitals as above Eyes: PERRL, conjunctivae normal, anicteric sclerae ENMT: external ear and nose normal, oropharynx normal Neck: normal visual inspection Respiratory: normal respiratory effort, lungs clear to auscultation Cardiovascular: Rate/Rhythm: regular rate and regular rhythm Heart Sounds: + murmur (3/6 systolic murmur best heard over L middle sternal border) Gastrointestinal (Abdomen): normal bowel sounds, soft, nontender, no hepatosplenomegaly Musculoskeletal: no cyanosis or clubbing, extremities motor strength 5/5 Skin: no rashes, warm and dry Neurologic: AAOx3, normal speech. PERRLA, EOMI, no nystagmus. Normal visual acuity bilaterally. Bilateral UE, LE, and face without sensory or motor deficits. No pronator drift. Poor short term memory recall Psychiatric: A+Ox3, euthymic affect Results & Data Results & Data ([facility]) Vital Signs (Past 12 Hours) Vital Signs Temp Pulse Resp BP Pulse Ox 12/08/19 06:31 59 L 16 139/78 99 12/08/19 05:30 56 L 13 134/62 100 12/08/19 04:31 37.2 C 56 L 12 139/60 98 12/08/19 03:31 55 L 12 128/65 96 12/08/19 02:31 58 L 18 134/47 L 100 12/08/19 01:30 56 L 12 115/56 L 98 12/08/19 00:30 37.2 C 59 L 18 131/56 L 100 12/07/19 22:30 62 12 115/55 L 97 12/07/19 21:30 61 21 122/58 L 96 12/07/19 20:30 37.2 C 60 14 117/62 97 12/07/19 19:30 62 12 127/56 L 95 Resident Activity Tracking Resident Involvement: Resident Care Provided Care Provided: Adult Hospital Medicine (1) Fracture, ribs Encounter type: initial encounter Fracture type: closed Laterality: bilateral Rib fracture type: multiple ribs Qualified Code(s): S22.43XA - Multiple fractures of ribs, bilateral, initial encounter for closed fracture (2) Aspiration into airway Encounter type: initial encounter Qualified Code(s): T17.908A - Unspecified foreign body in respiratory tract, part unspecified causing other injury, initial encounter
[2019-12-08] MEDS: D5W AND 1/2NSS + 20MEQ KCL 20 MEQ/1,000 ML BAG IV SCH (07:32)
[2019-12-08] MEDS: METOPROLOL TARTRATE 25 MG TAB PO SCH ×2 (07:57→20:38)
[2019-12-08] MEDS: HEPARIN SOD 5,000 UNIT/0.5 ML VIAL SQ SCH ×2 (07:58→20:37)
[2019-12-08] MEDS: ATORVASTATIN 40 MG TAB PO SCH (07:58)
[2019-12-08] MEDS: ASPIRIN 81 MG CHEW PO SCH (07:58)
--- NOTE | 2019-12-08 09:07 | Cardiology Progress Note ---
Date of Service December 08, 2019 Subjective She is awake and alert this morning. She knows she is in the hospital but did not know the month nor the date. She has any chest pain or chest pressure or shortness of breath. She has any palpitations. She denies any lower extremity edema. She has any lightheadedness or dizziness. She has been up out of bed to a chair this morning. Results & Data Vital Signs (Past 12 Hours) Vital Signs Temp Pulse Resp BP Pulse Ox 12/08/19 08:00 60 12/08/19 06:31 59 L 16 139/78 99 12/08/19 05:30 56 L 13 134/62 100 12/08/19 04:31 37.2 C 56 L 12 139/60 98 12/08/19 03:31 55 L 12 128/65 96 12/08/19 02:31 58 L 18 134/47 L 100 12/08/19 01:30 56 L 12 115/56 L 98 12/08/19 00:30 37.2 C 59 L 18 131/56 L 100 12/07/19 22:30 62 12 115/55 L 97 12/07/19 21:30 61 21 122/58 L 96 HEENT: 2+ carotid upstrokes no evidence of carotid bruits her jugular venous pressure was not elevated her sclerae anicteric Lungs: Clear to auscultation bilaterally no rales rhonchi or wheezing Heart: Regular rate and rhythm, 1/6 VENKATESH upper RSB Abdomen: Soft nontender nondistended decreased bowel sounds Extremities: No clubbing cyanosis or edema Psychiatric affect appropriate Neurologic She is awake and responds, some confusion and short term memory issues Findings: Cath LM -Short, 20% ostial LAD -medium caliber vessel which wraps around apex. Mid LAD after first diagonal with 50% stenosis. Medium caliber second diagonal with 60 to 70% ostial stenosis Circumflex -medium caliber vessel, luminal irregularities. Gives off to OM's and a distal left PLB. RCA -dominant, large caliber vessel, 40 to 50% ostial stenosis improved with vasodilators. Remainder vessel without significant disease LVEDP -10 EKG sinus bradycardia 45 bpm left ventricular hypertrophy diffuse ST-T changes concerning for hypertrophic cardiomyopathy prolonged QTC secondary to the hypothermic protocol Echocardiogram was reviewed. Impressions: 1. Sudden cardiac secondary to ventricular fibrillation x AED shock x1 2. Hypertrophic cardiomyopathy with predominant apical variant number 3. Previous risk factors for sudden cardiac only included a family h istory only 4. Moderate CAD 5. S/P ICE Alert; now warmed 5. Short runs of nonsustained monomorphic VT on the monitor 12/06/2019 6. Prolonged QTC postarrest I agree with the ultrasound technologist sonographer service she can be transferred upstairs. I would keep her magnesium greater than 2 and her potassium greater than 4 which it is this morning. I would continue with her beta-blockers even with her resting heart rates with sleep in the 50s. Her blood pressure is acceptable she needs an EKG this morning to reassess her QTC. I will put a consult into the EP service with Dr. Martinez for defibrillator therapy prior to discharge for secondary prophylaxis. Cognitively she seems very childish this morning. Hopefully this will continue to improve she likely needs some cognitive therapy upon discharge. All this discussed with the nursing staff.
--- NOTE | 2019-12-08 09:20 | Critical Care Progress Note ---
Date of Service December 08, 2019 Assessment & Plan (1) Cardiac arrest: Reason Critically Ill: 64-year-old female with in field V. fib arrest and shocked x1 with AED, converted to PEA and ROSC achieved in the emergency department. Taken to [facility] with no indication for intervention. Patient not following commands, now undergoing 24-hour therapeutic hypothermia. 24-hour events: Extubated without difficulty. Cooling catheter removed. A-line removed. Out of bed to chair passed swallow evaluation. Diet advanced Recommendations Neuro -some mild short-term memory deficits but neuro exam nonfocal. Continue to follow clinically with supportive care. Cardiac -out of hospital cardiac arrest. History of hypertrophic apical cardiomyopathy. Grade 1 diastolic dysfunction is noted. She is hemodynamically stable currently. Defer additional management to cardiology. Will likely need evaluation for AICD prior to discharge. Will initiate physical therapy and Occupational Therapy consults. Respiratory -now extubated on nasal cannula. Continue pulmonary toilet with incentive spirometry as tolerated and wean oxygen to maintain saturations at or above 88%. Initial CT scan showed bibasilar atelectatic changes. GI -LFTs improving, no need to continue to trend. Advancing diet as tolerated RENAL/LYTES -no current issues. Urine output adequate. Electrolytes and acid- base status appropriate. Mildly decreased calcium which will be repleted today - No issues ENDO -glycemic control per ICU protocol. No current issues otherwise HEME - Mild anemia. No evidence of bleeding. Follow clinically ID -hold antibiotics follow fever curve and white blood cell count. DVT PROPHYLAXIS - SCDs, heparin Stable for transfer out of the ICU from our perspective. We will sign off when she leaves the intensive care unit. Feel free to contact us with additional pulmonary or critical care issues. (2) Transaminitis: (3) Aspiration into airway: Admission and Anticipated Discharge Date Admission Date: December 05, 2019 Subjective Patient seen and examined. Discussed with critical care nurse and on multidisciplinary rounds. She is doing well clinically. She is been out of bed to the chair. Cooling catheter and Madden catheter as well as arterial lines have been removed. She has some short-term memory deficits but overall is doing quite well. She denies any pain. She is tolerating a diet. Review of Systems Review of Systems: All systems reviewed & are unremarkable except as noted in HPI & below Physical Exam Constitutional: WD/WN, vitals as above Neck: trachea midline, no thyromegaly Respiratory: normal respiratory effort, lungs clear to auscultation Cardiovascular: RRR, no murmur, no edema Gastrointestinal (Abdomen): normal bowel sounds, soft, nontender, no hepatosplenomegaly Musculoskeletal: Extremities: extremities normal to inspection Skin: no rashes, warm and dry Lymphatic: no cervical lymphadenopathy Results & Data Results & Data ([facility]) Vital Signs (Past 12 Hours) Vital Signs Temp Pulse Resp BP Pulse Ox 12/08/19 08:00 60 12/08/19 06:31 59 L 16 139/78 99 12/08/19 05:30 56 L 13 134/62 100 12/08/19 04:31 37.2 C 56 L 12 139/60 98 12/08/19 03:31 55 L 12 128/65 96 12/08/19 02:31 58 L 18 134/47 L 100 12/08/19 01:30 56 L 12 115/56 L 98 12/08/19 00:30 37.2 C 59 L 18 131/56 L 100 12/07/19 22:30 62 12 115/55 L 97 12/07/19 21:30 61 21 122/58 L 96 Laboratory Results 12/08/19 04:33 12/08/19 04:33 Coding Level of Care Code 00745 Subseq Hosp Care Lvl 3 Diagnoses Cardiac arrest I46.9 Transaminitis R74.0 Aspiration into airway T17.908A Encounter type: initial encounter (1) Aspiration into airway Encounter type: initial encounter Qualified Code(s): T17.908A - Unspecified foreign body in respiratory tract, part unspecified causing other injury, initial encounter
[2019-12-08] MEDS: MAGNESIUM OXIDE 400 MG TAB PO SCH ×2 (11:33→20:37)
--- NOTE | 2019-12-08 15:35 | Electrocardiogram Report ---
Test Reason : Blood Pressure : / mmHG Vent. Rate : 068 BPM Atrial Rate : 068 BPM P-R Int : 192 ms QRS Dur : 102 ms QT Int : 440 ms P-R-T Axes : 061 042 156 degrees QTc Int : 467 ms Normal sinus rhythm Left ventricular hypertrophy with repolarization abnormality ( Sokolow-Reyna ) Abnormal ECG When compared with ECG of 07-DEC-2019 09:20, ST now depressed in Anterior leads Nonspecific T wave abnormality now evident in Inferior leads T wave inversion more evident in Anterolateral leads QT has shortened Confirmed by Evin Martinez ([id number]) on 12/08/2019 3:35:23 PM Referred By: REFERRED SELF Confirmed By:Scar Martinez
--- NOTE | 2019-12-08 18:00 | Cardiology Consultation ---
Date of Consultation December 08, 2019 Assessment & Plan (1) Cardiac arrest: Patient has known hypertrophic cardiomyopathy and experienced an [id number] cardiac arrest which required defibrillation. On the risk of sudden cardiac appears lower an individual with apical variant hypertr ophy, in the setting of documented arrest with ventricular fibrillation she is advised to undergo implantation of an ICD for secondary prevention. I discussed the implant procedure as well as the indications with the patient. However, she is quite forgetful and required similar explanation on more than 1 occasion. Her was present for portion of the interview today in everyone seems to be in agreement that we should proceed with device implant. History of Present Illness Reason for Consultation: Cardiac arrest Requesting Physician: Mariposa Attending Physician: Claudio Rush DO History of Present Illness The patient is a 64-year-old woman with a history of hypertrophic cardiomyopathy who suffered an [id number] cardiac arrest. It seems she was out walking and was found unresponsive. The initial rhythm was unknown, but it was reported that she underwent defibrillation by an AED at first. Later, her rhythm was described as asystole. She had ROSC and underwent hypothermia protocol. She has little recollection of the event. She appears to have some neurological recovery but has some retrograde amnesia and short term amnesia as well. She did not report any current symptoms but was later reminded by her of rib pain. Allergies Allergy/AdvReac Type Severity Reaction Status Date / Time No Known Allergies Allergy Unknown Verified 12/05/19 17:16 Home Medications Home Medications Medication Instructions Recorded Confirmed Type ASPIRIN (ASPIRIN EC) 81 mg PO Q2D #0 04/10/17 History ATORVASTATIN (LIPITOR) 10 mg PO Q2D #0 tab 04/10/17 History CALCIUM CARBONATE-VITAMIN D 2 cap PO DAILY #0 04/10/17 History (CALCIUM PLUS VITAMIN D) Fish Oil ([place]-3) 1 cap PO DAILY #0 cap 04/10/17 History GLUCOSAMINE-CHONDROITIN 500MG/400 1 cap PO DAILY #0 04/10/17 History MG (GLUCOSAMINE-CHONDROITIN 500 MG/400 MG) Psyllium (Metamucil Fiber) 1 dose PO DAILY #0 04/10/17 History Ranitidine Hcl (ZANTAC) 150 mg PO PRN #0 tab 04/10/17 History Patient History Social History Preferred Language: Sinhala Communication Ability: Unable Automation Controls Expert Required: No Beliefs That Will Affect Care: None marital status: Current Living Situation: Spouse Other Information That Helps Us Care for You: No Feels Safe at Home: Yes Safety Concerns: Feels Safe At This Time Smoking Status: Never smoker Do You Dip or Chew Tobacco: No ; Second Hand Exposure: No ; Tobacco Cessation Education Requested by Patient: No Hx Alcohol Use: Yes Alcohol type: beer Hx Substance Use: No Review of Systems Review of Systems: All systems reviewed & are unremarkable except as noted in HPI & below She intermittently describe some symptoms of chest discomfort. She appeared unaware of the fact that she had broken ribs. Physical Exam Physical Exam: She is alert and oriented x3, however she was very forgetful. HEENT: Sclerae are anicteric. Pupils are equal and reactive to light and accommodation. Extraocular movements were intact. Neuro: Cranial nerves intact Neck: Examination of the submandibular region did not reveal any significant lymphadenopathy. Carotids are palpable bilaterally and free of bruits on auscultation. There was no evidence of jugular venous distention. The thyroid was not enlarged. Lungs: Lungs are clear to auscultation bilaterally. There are no rales wheezes or rhonchi. She has normal respiratory effort without use of accessory muscles. There is normal pulmonary excursion. Cardiac: The rhythm was regular. S1 and S2 were normal. Crescendo systolic murmur. The PMI was not markedly displaced on palpation. Abdomen: The abdomen was soft and nontender. Extremities: Patient has bilateral radial pulses that are equal in intensity. There is no evidence cyanosis or clubbing. There was no evidence of significant peripheral edema bilaterally. Skin: There are no rashes noted on examination today. Results & Data ([facility]) Vital Signs (Past 12 Hours) Vital Signs Temp Pulse Pulse Resp BP BP Pulse Ox 12/08/19 16:30 100 12/08/19 16:00 36.7 C 57 L 86 20 146/76 H 99 12/08/19 11:31 57 L 17 145/69 H 100 12/08/19 11:00 51 L 15 99 12/08/19 10:31 58 L 18 153/80 H 100 12/08/19 10:00 63 15 100 12/08/19 09:31 55 L 16 144/65 H 99 12/08/19 09:00 66 14 100 07/14/20 08:31 53 L 20 126/66 98 12/08/19 08:00 58 L 14 98 12/08/19 07:31 62 20 141/65 H 12/08/19 07:00 66 19 12/08/19 06:31 59 L 16 139/78 99 Laboratory Results Abnormal Lab Results 12/08/19 12/08/19 04:33 04:33 WBC 6.86 RBC 3.61 L Hgb 11.7 L Hct 34.1 L MCV 94.5 MCH 32.4 MCHC 34.3 RDW Std Deviation 43.5 RDW Coeff of Franchesca 12.6 Plt Count 121 L MPV 11.3 H Immature Gran % (Auto) 0.1 Neut % (Auto) 81.3 Lymph % (Auto) 9.6 Casey % (Auto) 8.6 Eos % (Auto) 0.3 Baso % (Auto) 0.1 Neut # (Auto) 5.57 Lymph # (Auto) 0.66 L Casey # (Auto) 0.59 Eos # (Auto) 0.02 Baso # (Auto) 0.01 Immature Gran # (Auto) 0.01 Sodium 137 Potassium 4.4 D Chloride 107 Carbon Dioxide 26 Anion Gap 4.0 BUN 13 Creatinine 0.63 Est Cr Clr Drug Dosing 105.1 Est GFR ( Amer) 110.6 Est GFR (Non-Af Amer) 95.5 BUN/Creatinine Ratio 21.3 H Glucose 101 H Calcium 7.9 L Phosphorus 2.1 L Magnesium 1.8 Total Bilirubin 0.5 Direct Bilirubin 0.1 AST 223 H ALT 409 H Alkaline Phosphatase 52 Total Protein 5.8 L Albumin 2.8 L Diagnostic Findings Echocardiogram performed 12/06/2019 revealed LVH consistent with apical hypertrophy, normal LV EF, mild left atrial dilation. Cardiac catheterization performed at the time of admission revealed 70 percent ostial stenosis of the 2nd diagonal and nonobstructive disease in the remaining coronaries. PG Care Time/CCT Total # of Minutes Spent Total Time Spent with Patient: Total time spent is greater than 50% in coordination of care (as documented) at patient's floor/unit and/or counseling patient: Coding Level of Care Code 30456 Inpt Consult Level 4 Diagnoses Cardiac arrest I46.9
[2019-12-08] MEDS: CALCIUM CARBONATE 1,250 MG/5 ML UDC PO SCH (20:39)
[2019-12-09 04:43] LABS: Basophils # (auto) 0.01 K/uL (0-0.2); Basophils % (auto) 0.2 %; Eosinophils # (auto) 0.08 K/uL (0-0.5); Eosinophils % (auto) 1.4 %; Hemoglobin 10.9 g/dL (12.0-16.0); Immature Granulocytes # (auto) 0.01 K/uL (0.00-0.02); Immature Granulocytes % (auto) 0.2 %; Lymphocytes # (auto) 0.92 K/uL (1.2-3.4); Lymphocytes % (auto) 16.6 %; Mean Corpuscular Hgb Conc 34.1 g/dL (32-36); Mean Corpuscular Volume 93.8 fL (80-100); Mean Platelet Volume 11.2 fL (7.4-10.4); Neutrophils # (auto) 4.02 K/uL (1.4-6.5); Neutrophils % (auto) 72.6 %; Platelet Count 109 K/uL (130-400); RDW Coefficient of Variation 12.5 % (11.5-14.5); RDW Standard Deviation 42.6 fL (36.4-46.3); Red Blood Count 3.41 M/uL (4.2-5.4); White Blood Count 5.54 K/uL (4.8-10.8)
[2019-12-09 05:38] LABS: Albumin Level 2.8 gm/dl (3.4-5.0); BUN Creatinine Ratio 14.1 (10-20); Bilirubin,Total 0.6 mg/dl (0.2-1); Calcium 8.2 mg/dl (8.5-10.1); Creatinine Clr Calc Pharmacy 100.4 ml/min; Globulin 2.8 gm/dl (2.5-4.0); Potassium 4.2 mmol/L (3.5-5.1); Total Protein 5.6 gm/dl (6.4-8.2)
--- NOTE | 2019-12-09 07:45 | Hospitalist Progress Note ---
Date of Service December 09, 2019 Assessment & Plan (1) Cardiac arrest: 64 yo female with PMHx HOCM admitted to the ICU after suffering an out of hospital cardiac arrest while walking, achieved ROSC after AED shock and CPR en route to hospital. Cardiac arrest in patient with Hx HOCM: - Out of hospital, had AED shock x1, epi total 5mg IV, CPR performed in field with ROSC in ED. - On arrival troponin 0.383 initial in setting of cardiac arrest from likely ventricular dysrhythmia. - Cardiac cath performed without stentable disease as below: - LM - Short, 20% ostial - LAD - medium caliber vessel which wraps around apex. Mid LAD after first diagonal with 50% stenosis. Medium caliber second diagonal with 60 to 70% ostial stenosis - Circumflex - medium caliber vessel, luminal irregularities. Gives off to OM's and a distal left PLB. - RCA - dominant, large caliber vessel, 40 to 50% ostial stenosis improved with vasodilators. Remainder vessel without significant disease - Weaned off of ventilation with good oxygen saturation on 2LNC. Continue to wean as tolerated. - Completed therapeutic hypothermia protocol. - CT head and CT cervical spine both negative for acute injury. - Cardiac event likely cardiac arrest 2/2 HOCM-induced ventricular arrhythmia, possibly in some part 2/2 dehydration during exercising in the warm weather. - Cardiology consulted and appreciate recommendations: - Start metoprolol tartrate 12.5mg BID. - Atorvastatin increased to 40mg daily. - For Defibrillator placement tomorrow. - Continue home aspirin. Anoxic encephalopathy: - Patient with cardiac arrest as above. - Continues to have difficulty with short time memory, though mildly improved today. - Suspect will have some element of return to normal memory, however unclear at this time how much. - CT head negative for acute injury. - Neurology consult placed and appreciate recommendations: - MR brain without contrast placed. - No EEG at this time. ? Aspiration pneumonitis vs. pneumonia vs. atelectasis: - Initial CT scan showed bibasilar atelectatic changes vs. aspiration pneumonitis vs. pneumonia. - Patient continues to be afebrile and without leukocytosis; will hold Abx at this time. - Suspect 2/2 atelectasis; encouraged continued use of incentive spirometer. Transaminitis likely 2/2 Shock Liver: - On admission AST 770; ALT 823. - Continues to downtrend following continued recovery from acute cardiac event. Rib fractures: - Seen on CXR. - Consistent with CPR in field. - Patient without complaints at this time, oxygenating well on RA, no flail chest. - Tylenol PRN rib pain. Code: Full FEN/GI: Heart Healthy, NPO at midnight DVT ppx: Heparin Dispo: PCU/Telemetry; for ICD placement tomorrow (2) Fracture, ribs: (3) Hypertrophic cardiomyopathy: (4) Hyperlipidemia: (5) Transaminitis: (6) Aspiration into airway: (7) Elevated troponin: Admission and Anticipated Discharge Date Admission Date: December 05, 2019 Supervising Physician Co-Signing Physician Notes I independently saw the patient and confirmed nicolas portions of the history and physical exam as documented in the resident documentation. In terms of her mentation, she acknowledges today that she does not recall some things which she should, but she still has obvious limitations in her short-term memory. There seems to be some subtle improvements compared to yesterday, and she still has a general indifference to the things we talked about regarding her hospitalization. Her has apparently written down some questions and answers in a notebook which sits in front of her; she has looked at this previously but when we talked this morning it was as if the first time she had looked at it. There is a picture of a grandchild, born about 2 weeks ago. She can tell me his child is but she had forgotten this recent until the pitcher reminded her. Cardiac arrest in the setting of known hypertrophic cardiomyopathy Implantable defibrillator, perhaps tomorrow Anoxic encephalopathy Subtle improvements Neurology consult appreciated MRI brain demonstrated small vessel disease Cognitive to therapy post discharge Continue statin and aspirin Suspect gradual, but incomplete improvement Subjective Without acute events overnight. Recalls talking with me yesterday and knew during our talk today that she "needs a defibrillator". Does not recall meeting Dr. Rush or Dr. Martinez. Does not recall her cardiac event. Appears more awake today. Denies palpitations, SOB, nausea or vomiting, constipation or diarrhea, fevers or chills. Endorses some chest pain due to her previous chest compressions. Review of Systems Review of Systems: All systems reviewed & are unremarkable except as noted in Subjective Physical Exam Constitutional: WD/WN, vitals as above Eyes: PERRL, conjunctivae normal, anicteric sclerae ENMT: external ear and nose normal, oropharynx normal Neck: normal visual inspection Respiratory: normal respiratory effort, lungs clear to auscultation Cardiovascular: Rate/Rhythm: regular rate and regular rhythm Heart Sounds: + murmur (3/6 systolic murmur best heard over L middle sternal border) Gastrointestinal (Abdomen): normal bowel sounds, soft, nontender, no hepatosplenomegaly Musculoskeletal: no cyanosis or clubbing, extremities motor strength 5/5 Skin: no rashes, warm and dry Psychiatric: A+Ox3, euthymic affect Results & Data Results & Data ([facility]) Vital Signs (Past 12 Hours) Vital Signs Temp Pulse Resp BP Pulse Ox 12/09/19 04:13 37.3 C 61 20 139/60 94 12/09/19 00:00 37.1 C 75 18 139/60 92 12/08/19 20:03 36.7 C 64 16 167/75 H 96 Resident Activity Tracking Resident Involvement: Resident Care Provided Care Provided: Adult Hospital Medicine (1) Fracture, ribs Encounter type: initial encounter Fracture type: closed Laterality: bilateral Rib fracture type: multiple ribs Qualified Code(s): S22.43XA - Multiple fractures of ribs, bilateral, initial encounter for closed fracture (2) Aspiration into airway Encounter type: initial encounter Qualified Code(s): T17.908A - Unspecified foreign body in respiratory tract, part unspecified causing other injury, initial encounter
[2019-12-09] MEDS: METOPROLOL TARTRATE 25 MG TAB PO SCH ×2 (08:29→20:23)
--- NOTE | 2019-12-09 09:31 | Neurology Consultation ---
Date of Consultation December 09, 2019 Assessment & Plan (1) Anoxic encephalopathy: Mild to moderate anoxic encephalopathy characterized primarily by impairment of short-term memory, mild inattention, mild impairment of concentration, and perhaps mild elation and indifference to current medical condition. Patient also exhibits significant deficits to orientation which may be related to her significant short-term memory difficulty. She has not exhibited seizures or post anoxic myoclonus. No need for EEG at this time. I did recommend a noncontrast brain MRI which hopefully can be completed prior to ICD placement. I expect patient's cognitive dysfunction to modestly improve over the next week or so. However, she will likely have some residual difficulty with short-term memory function and may be at higher risk for developing more significant cognitive difficulties (dementia) going forward. Patient may follow-up with me in the outpatient clinic, on a nonurgent basis, to reassess her status. Thank you for the consult. History of Present Illness Reason for Consultation: Anoxic encephalopathy Requesting Physician: Sandy Molina DO Attending Physician: Claudio Rush DO History of Present Illness The patient is a 64-year old female who went out for a walk on December 04 and was found on the ground unresponsive. The event was unwitnessed. An AED was applied at the scene by police and a shock was administered. Per EMS, the patient was in asystole, pulseless electrical activity, epinephrine administered, CPR administered, return of spontaneous circulation identified and emergency department although patient remained unresponsive. She was taken to the cardiac catheterization lab although no intervention was performed. Patient has a known history of hypertrophic cardiomyopathy. She was subsequently treated with the hypothermia protocol and eventually weaned off the ventilator on December 06. She has been conversational but notably confused with poor memory. No convulsive activity or irregular myoclonic type jerking of the limbs has been observed. An EEG have been ordered over the weekend although it looks like this test was subsequently canceled possibly due to patient's clinical improvement. A CT of the head obtained at time of presentation was negative for hemorrhage or acute process. Currently, the patient remains confused. She has no memory for the events that led to her hospitalization. She vaguely remembers going out for a walk. She has no complaints and seems to be slightly elated and unconcerned regarding her current medical condition. Family history noncontributory Allergies Allergy/AdvReac Type Severity Reaction Status Date / Time No Known Allergies Allergy Unknown Verified 12/05/19 17:16 Home Medications Home Medications Medication Instructions Recorded Confirmed Type ASPIRIN (ASPIRIN EC) 81 mg PO Q2D #0 04/10/17 History ATORVASTATIN (LIPITOR) 10 mg PO Q2D #0 tab 04/10/17 History CALCIUM CARBONATE-VITAMIN D 2 cap PO DAILY #0 04/10/17 History (CALCIUM PLUS VITAMIN D) Fish Oil (Todd-3) 1 cap PO DAILY #0 cap 04/10/17 History GLUCOSAMINE-CHONDROITIN 500MG/400 1 cap PO DAILY #0 04/10/17 History MG (GLUCOSAMINE-CHONDROITIN 500 MG/400 MG) Psyllium (Metamucil Fiber) 1 dose PO DAILY #0 04/10/17 History Ranitidine Hcl (ZANTAC) 150 mg PO PRN #0 tab 04/10/17 History Patient History Social History Preferred Language: Belgian Communication Ability: Unable 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 Beliefs That Will Affect Care: None marital status: Current Living Situation: Spouse Other Information That Helps Us Care for You: No Feels Safe at Home: Yes Safety Concerns: Feels Safe At This Time Smoking Status: Never smoker Do You Dip or Chew Tobacco: No ; Second Hand Exposure: No ; Tobacco Cessation Education Requested by Patient: No Hx Alcohol Use: Yes Alcohol type: beer Hx Substance Use: No Review of Systems Constitutional: no fever and no chills Eyes: no blind spots and no diplopia Ear, Nose, Mouth, Throat: no tinnitus and no hearing loss Respiratory: no cough and no dyspnea Cardiovascular: no chest pain and no palpitations Gastrointestinal: no nausea and no vomiting Genitourinary: no dysuria Musculoskeletal: no neck pain and no myalgia Integumentary: no rash and no lesions Neurologic: + confusion; no localized weakness, no loss of sensation and no headache(s) Psychiatric: no depression and no anxiety Hematologic / Lymphatic: no easy bleeding and no easy bruising Exam (Neuro) Constitutional: well developed and well nourished; no acute distress Eyes: normal visual mari by confrontation, PERRL, normal accommodation and EOM intact bilaterally; no fundoscopic abnormality, no nystagmus and no papilledema Cardiovascular: Vessels: normal carotid upstroke; no carotid bruit Neurologic: Oriented to:: Person; negative Place and Time Memory: negative Short Term Intact (0 out of 3 objects with delayed recall) and Remote Intact (Unable to state her address) Attention: negative Span Intact (Attention span mildly impaired) and Concentration Intact (Concentration mildly impaired, 4 out of 5 spelling world backwards.) Language: Naming Objects and Repeating Phrases Speech Fluency: negative Dysarthria Speech Aphasia: negative Aphasia Fund of Knowledge: Vocabulary; negative Current Events and Past History Cranial Nerves: Normal II (Visual mari full to confrontation, visual acuity normal), III, IV, (Pupils equal round reactive to light and accommodation, eye movements normal), V (Facial sensation intact), VII (There is no facial droop or weakness), VIII (Hearing intact), IX, X (Palate elevates to midline), XI (Shoulder shrug intact) and XII (Tongue protrudes to midline) Motor Strength: Normal Lower Extremities and Normal Upper Extremities; negative Pronator Drift Motor Tone: Normal Lower Extremities and Normal Upper Extremities Muscle Bulk/Involuntary Movements: No Involuntary Movements; negative Muscle Atrophy Sensation: Light Touch Intact, Pain/Temperature Intact, Vibration Intact and Proprioception Intact Coordination: Normal; negative Limited Balance, Dysdiadochokinesia, Finger-Nose Abnormal and Heel-Salazar Abnormal Deep Tendon Reflexes: Rt Triceps: 2+, Lt Triceps: 2+, Rt Biceps: 2+, Lt Biceps: 2+, Rt Brachioradialis: 2+, Lt Brachioradialis: 2+, Rt Patellar: 2+, Lt Patellar: 2+, Rt Ankle: 2+ and Lt Ankle: 2+ Special Tests: negative Babinski Present Details: Gait cannot be safely tested in the context of patient's current medical/neurological condition. Results & Data ([facility]) Vital Signs (Past 12 Hours) Vital Signs Temp Pulse Resp BP Pulse Ox 12/09/19 08:00 36.9 C 52 L 18 156/76 H 95 12/09/19 04:13 37.3 C 61 20 139/60 94 12/09/19 00:00 37.1 C 75 18 139/60 92 Laboratory Results WBC 5.54, hemoglobin 10.9, hematocrit 32.0, platelet count 109, sodium 144, potassium 4.2, BUN 9, creatinine 0.66, glucose 89, calcium 8.2, AST 147, ALT 283, triglycerides 53, cholesterol 89, LDL 32, VLDL 11, HDL 46, TSH 1.[address] of the head negative for hemorrhage, mass-effect, or acute territorial ischemia. There is good andrea-white differentiation. I reviewed the images as well as the radiologist's interpretation of this test. Electrocardiogram completed yesterday reveals left ventricular hypertrophy with repolarization abnormality, sinus rhythm, 68 bpm. An echocardiogram revealed significant left ventricular hypertrophy, predominantly at the mid to apical ventricle. The left atrium is mildly dilated. Coding Level of Care Code 86660 Inpt Consult Level 5 Diagnoses Anoxic encephalopathy G93.1
[2019-12-09] MEDS: MAGNESIUM OXIDE 400 MG TAB PO SCH ×2 (10:09→20:23)
[2019-12-09] MEDS: ATORVASTATIN 40 MG TAB PO SCH (10:09)
[2019-12-09] MEDS: HEPARIN SOD 5,000 UNIT/0.5 ML VIAL SQ SCH ×2 (10:09→20:22)
[2019-12-09] MEDS: CALCIUM CARBONATE 1,250 MG/5 ML UDC PO SCH ×2 (10:09→20:23)
--- NOTE | 2019-12-09 10:42 | Cardiology Progress Note ---
Date of Service December 09, 2019 Subjective She is awake and alert. She knows she is in the hospital she knows the year. She has significant short-term memory deficits along with lack of attentiveness. She tends to repeat the same questions. And she is childlike in her affect. She denies any chest pain or chest pressure or shortness of breath. She denies any palpitations or fluttering or feeling her heart racing. She denies any orthostatic symptoms. She has no lower extremity edema. Results & Data Vital Signs (Past 12 Hours) Vital Signs Temp Pulse Resp BP Pulse Ox 12/09/19 08:00 36.9 C 52 L 18 156/76 H 95 12/09/19 04:13 37.3 C 61 20 139/60 94 12/09/19 00:00 37.1 C 75 18 139/60 92 HEENT: 2+ carotid upstrokes no evidence of carotid bruits her jugular venous pressure was not elevated her sclerae anicteric Lungs: Clear to auscultation bilaterally no rales rhonchi or wheezing Heart: Regular rate and rhythm, 1/6 VENKATESH upper RSB Abdomen: Soft nontender nondistended decreased bowel sounds Extremities: No clubbing cyanosis or edema Psychiatric affect appropriate Neurologic She is awake and responds, some confusion and short term memory issues Findings: Cath LM -Short, 20% ostial LAD -medium caliber vessel which wraps around apex. Mid LAD after first diagonal with 50% stenosis. Medium caliber second diagonal with 60 to 70% ostial stenosis Circumflex -medium caliber vessel, luminal irregularities. Gives off to OM's and a distal left PLB. RCA -dominant, large caliber vessel, 40 to 50% ostial stenosis improved with vasodilators. Remainder vessel without significant disease LVEDP -10 EKG sinus bradycardia 45 bpm left ventricular hypertrophy diffuse ST-T changes concerning for hypertrophic cardiomyopathy prolonged QTC secondary to the hypothermic protocol Echocardiogram was reviewed. Impressions: 1. Sudden cardiac secondary to ventricular fibrillation x AED shock x1 2. Hypertrophic cardiomyopathy with predominant apical variant number 3. Previous risk factors for sudden cardiac only included a family history only 4. Moderate CAD 5. S/P ICE Alert; 5. Short runs of nonsustained monomorphic VT on the monitor 12/06/2019 6. Prolonged QTC postarrest -- resolved 7. Anoxic brain injury Appreciate Neuro inpt -- outpt cognitive Tx if can watch her at all times Dual Chamber ICD so that we can give her more BB as outpt MRI this am Once ICD in can increase BB to reduce risk of arrhythmias d/w Dr Martinez
--- NOTE | 2019-12-09 11:20 | Magnetic Resonance Report ---
MRI OF THE BRAIN WITHOUT CONTRAST CLINICAL HISTORY: Anoxic encephalopathy COMPARISON STUDY: Noncontrast head CT dated 12/05/2019 FINDINGS: Sagittal T1, axial diffusion, proton density and T2 weighted axial, coronal FLAIR, and axial T1-weigh cheryl images were acquired. No intra or extra-axial mass lesions are visualized Axial diffusion-weighted images reveal no evidence of acute or subacute infarction. There is no evidence of ventricular dilatation. Proton density T2-weighted and FLAIR images reveal scattered foci of increased T2 signal within the w luisa matter, likely on a small vessel basis. There is a partially empty sella. There are no abnormal flow voids. IMPRESSION: 1. No acute intracranial findings 2. No evidence of intracranial mass 3. No evidence of acute or subacute infarction 4. Scattered foci of increased T2 signal within the white matter, likely on a small vessel basis ACT 112: Negative or not required by law. Electronically signed by: John Mckeon M.D. 12/09/2019 11:18 AM
--- NOTE | 2019-12-10 08:26 | Hospitalist Progress Note ---
Date of Service December 10, 2019 Assessment & Plan (1) Cardiac arrest: 64 yo female with PMHx HOCM admitted to the ICU after suffering an out of hospital cardiac arrest while walking, achieved ROSC after AED shock and CPR en route to hospital. Cardiac arrest in patient with Hx HOCM: - Out of hospital, had AED shock x1, epi total 5mg IV, CPR performed in field with ROSC in ED. - On arrival troponin 0.383 initial in setting of cardiac arrest from likely ventricular dysrhythmia. - Cardiac cath performed without stentable disease as below: - LM - Short, 20% ostial - LAD - medium caliber vessel which wraps around apex. Mid LAD after first diagonal with 50% stenosis. Medium caliber second diagonal with 60 to 70% ostial stenosis - Circumflex - medium caliber vessel, luminal irregularities. Gives off to OM's and a distal left PLB. - RCA - dominant, large caliber vessel, 40 to 50% ostial stenosis improved with vasodilators. Remainder vessel without significant disease - Weaned off of ventilation with good oxygen saturation on 2LNC. Continue to wean as tolerated. - Completed therapeutic hypothermia protocol. - CT head and CT cervical spine both negative for acute injury. - Cardiac event likely cardiac arrest 2/2 HOCM-induced ventricular arrhythmia, possibly in some part 2/2 dehydration during exercising in the warm weather. - Cardiology consulted and appreciate recommendations: - Started metoprolol tartrate 12.5mg BID this admission. Will increase to 25mg BID per Cardiology recommendations. - Atorvastatin increased to 40mg daily. - For Defibrillator placement today. Expect d/c home with home health services (speech for memory therapy in particular) tomorrow if procedure without event. - Continue home aspirin. Anoxic encephalopathy: - Patient with cardiac arrest as above. - Continues to have difficulty with short time memory, though mildly improved today. - Suspect will have some element of return to normal memory, however unclear at this time how much. - CT head negative for acute injury. - Neurology consult placed and appreciate recommendations: - MR brain without contrast placed, no masses, signs of hemorrhage or infarct. - No EEG at this time. - For Neurology follow up non-urgently following discharge. ? Aspiration pneumonitis vs. pneumonia vs. atelectasis: - Initial CT scan showed bibasilar atelectatic changes vs. aspiration pneumoni tis vs. pneumonia. - Patient continues to be afebrile and without leukocytosis; will hold Abx at this time. - Suspect 2/2 atelectasis; encouraged continued use of incentive spirometer. Transaminitis likely 2/2 Shock Liver: - On admission AST 770; ALT 823. - Continues to downtrend following continued recovery from acute cardiac event. Rib fractures: - Seen on CXR. - Consistent with CPR in field. - Patient without complaints at this time, oxygenating well on RA, no flail chest. - Tylenol PRN rib pain. Code: Full FEN/GI: Heart Healthy, NPO at midnight DVT ppx: Heparin Dispo: PCU/Telemetry; for possible discharge tomorrow with home health services (2) Fracture, ribs: found on imaging, consistent with CPR in field (3) Hypertrophic cardiomyopathy: reported hx, follows with Dr. Monge with [facility] review reports currently on aspirin daily (4) Hyperlipidemia: reported in history currently was on Lipitor 10mg PO q2d and Fish oil (5) Transaminitis: most likely from shock liver in setting of cardiac arrest AST 770; ALT 823 trend (6) Aspiration into airway: (7) Elevated troponin: 0.383 initial in setting of cardiac arrest Cardiac cath showing mild stenosis without need for intervention Admission and Anticipated Discharge Date Admission Date: December 05, 2019 Supervising Physician Co-Signing Physician Notes I saw the patient with the resident physician and confirmed nicolas portions of the history and physical examination. Agree with the impression and plan as noted above. The patient recalls that she had a defibrillator placed this morning. She also admits that she is having difficulty remembering things prior to the event -she does not recall holding her grandchild -although the improvement today is that she realizes that she is having lapses in her memory. Overall, there seems to be some gradual continual improvement in her short-term memory and recall. Cardiac arrest in the setting of known hypertrophic cardiomyopathy Implantable defibrillator placed today Consider cardiac debilitation Anoxic encephalopathy Subtle improvements Neurology consult appreciated MRI brain demonstrated small vessel disease Cognitive to therapy post discharge Continue statin and aspirin Suspect gradual, but incomplete improvement Subjective Without acute events overnight. Today did not remember me, however remembered she needed a defibrillator. in room during interview. At this time denies chest pain, shortness of breath, nausea or vomiting, fevers or chills, constipation or diarrhea. Recalls her name, , that she is in the hospital, and that there is a Coronavirus pandemic at this time. Did not recall president without prompting. Review of Systems Review of Systems: All systems reviewed & are unremarkable except as noted in Subjective Physical Exam Constitutional: WD/WN, vitals as above Eyes: PERRL, conjunctivae normal, anicteric sclerae ENMT: external ear and nose normal, oropharynx normal Neck: normal visual inspection Respiratory: normal respiratory effort, lungs clear to auscultation Cardiovascular: Rate/Rhythm: regular rate and regular rhythm Heart Sounds: + murmur (3/6 systolic murmur best heard over L middle sternal border) Gastrointestinal (Abdomen): normal bowel sounds, soft, nontender, no hepatosplenomegaly Musculoskeletal: no cyanosis or clubbing, extremities motor strength 5/5 Skin: no rashes, warm and dry Psychiatric: A+Ox3, euthymic affect Results & Data Results & Data ([facility]) Vital Signs (Past 12 Hours) Vital Signs Temp Pulse Pulse Resp BP Pulse Ox 12/10/19 04:00 37.3 C 49 L 22 129/65 94 12/10/19 00:00 54 L 12/09/19 23:09 37.3 C 48 L 16 139/63 93 Resident Activity Tracking Resident Involvement: Resident Care Provided Care Provided: Adult Hospital Medicine (1) Fracture, ribs Encounter type: initial encounter Fracture type: closed Laterality: bilateral Rib fracture type: multiple ribs Qualified Code(s): S22.43XA - Multiple fractures of ribs, bilateral, initial encounter for closed fracture (2) Aspiration into airway Encounter type: initial encounter Qualified Code(s): T17.908A - Unspecified foreign body in respiratory tract, part unspecified causing other injury, initial encounter
--- NOTE | 2019-12-10 09:16 | Cardiology Progress Note ---
Date of Service December 10, 2019 Subjective Short term memory unchanged, no other complaints Results & Data Vital Signs (Past 12 Hours) Vital Signs Temp Pulse Pulse Resp BP Pulse Ox 12/10/19 04:00 37.3 C 49 L 22 129/65 94 12/10/19 00:00 54 L 12/09/19 23:09 37.3 C 48 L 16 139/63 93 HEENT: 2+ carotid upstrokes no evidence of carotid bruits her jugular venous pressure was not elevated her sclerae anicteric Lungs: Clear to auscultation bilaterally no rales rhonchi or wheezing Heart: Regular rate and rhythm, 1/6 VENKATESH upper RSB Abdomen: Soft nontender nondistended decreased bowel sounds Extremities: No clubbing cyanosis or edema Psychiatric affect appropriate Neurologic She is awake and responds, some confusion and short term memory issues Findings: Cath LM -Short, 20% ostial LAD -medium caliber vessel which wraps around apex. Mid LAD after first diagonal with 50% stenosis. Medium caliber second diagonal with 60 to 70% ostial stenosis Circumflex -medium caliber vessel, luminal irregularities. Gives off to OM's and a distal left PLB. RCA -dominant, large caliber vessel, 40 to 50% ostial stenosis improved with vasodilators. Remainder vessel without significant disease LVEDP -10 EKG sinus bradycardia 45 bpm left ventricular hypertrophy diffuse ST-T changes concerning for hypertrophic cardiomyopathy prolonged QTC secondary to the hypothermic protocol Echocardiogram was reviewed. Impressions: 1. Sudden cardiac secondary to ventricular fibrillation x AED shock x1 2. Hypertrophic cardiomyopathy with predominant apical variant number 3. Previous risk factors for sudden cardiac only included a family history only 4. Moderate CAD 5. S/P ICE Alert; 5. Short runs of nonsustained monomorphic VT on the monitor 12/06/2019 6. Prolonged QTC postarrest -- resolved 7. Anoxic brain injury Dual chamber ICD today Increase BB to 25mg BID after implant to prevent arrhythmias and shorten QTc Cognitive rehab Can go home tomorrow from cardiology perspective once device checked tomorrow
[2019-12-10] MEDS ORDERED: fentaNYL citrate 100 MCG/2 ML VIAL ONE (09:40)
[2019-12-10] MEDS ORDERED: CEFAZOLIN 250 MG/ML 1 GM VIAL ONE (09:40)
[2019-12-10] MEDS ORDERED: MIDAZOLAM HCL 5 MG/ML 1 ML VIAL ONE (09:40)
--- NOTE | 2019-12-10 10:02 | Pre Anesthesia Assessment ---
Date of Service December 10, 2019 Pre Sedation Assessment Vital Signs Temp Pulse Pulse Resp BP Pulse Ox 12/10/19 09:59 48 L 17 141/64 H 98 12/10/19 04:00 37.3 C 49 L 22 129/65 94 12/10/19 00:00 54 L 12/09/19 23:09 37.3 C 48 L 16 139/63 93 12/09/19 20:00 37.2 C 55 L 16 139/60 96 12/09/19 15:54 36.8 C 52 L 18 141/71 H 93 Cardiovascular + regular rate Respiratory + respiratory effort normal Pre-Sedation Airway Assessment Smoking Status: Never smoker Hx Sleep Apnea: No Hx Difficult Intubation: No Short, Thick Neck: No Thyromental Distance: > or= 3.5 Finger Breadths Oral Cavity: + WNL Mallampati Class: II ASA: ASA3 NPO Status Date of Last Intake of Fluids: 12/10/19 Time of Last Intake of Fluids: 07:00 Date of Last Intake of Solid Food: 12/09/19 Time of Last Intake of Solid Foods: 22:00 Procedure Planning Contraindications for Sedation: none Current Medications Reviewed: Yes Notes The planned sedation has been discussed with the patient. Informed Consent was obtained. I have identified the patient, determined the appropriateness of sedation and have assessed the patient immediately prior to the procedure. All medicine(s) and interventions are by my order.
[2019-12-10] MEDS ORDERED: LIDOCAINE HCL 1% 20 ML VIAL ONE (10:20)
[2019-12-10] MEDS ORDERED: BUPIVACAINE 0.25% 30 ML VIAL ONE (10:21)
[2019-12-10] MEDS ORDERED: BACITRACIN INJ 50,000 UNIT VIAL ONE (10:21)
--- NOTE | 2019-12-10 11:40 | Post Anesthesia Assessment ---
Date of Service December 10, 2019 Post Sedation Assessment Vital Signs Temp Pulse Pulse Resp BP Pulse Ox 12/10/19 09:59 48 L 17 141/64 H 98 12/10/19 08:10 36.7 C 45 L 16 142/62 H 97 12/10/19 04:00 37.3 C 49 L 22 129/65 94 12/10/19 00:00 54 L 12/09/19 23:09 37.3 C 48 L 16 139/63 93 12/09/19 20:00 37.2 C 55 L 16 139/60 96 12/09/19 15:54 36.8 C 52 L 18 141/71 H 93 Recovery Score Activity: Moves 4 extremities Respiration: Deep Breath/Cough Circulation: +/-20% PreAnes Value Consciousness: Fully Awake Oxygen Saturation: > 92% On Room Air Discharge Sedation Level of Care: Fast Track Phase II Post Sedation Plan On clinical assessment, the patient appears to have tolerated the sedation without complications. Patient is recovering as anticipated. Patient will continue to be monitored by nursing and may be discharged when sedation discharge criteria are met per below protocol. Upon Completions of procedure up to 15 minutes continue every 5 minute vital signs and the P.A.R. score; then discharge to a Phase I or Fast Track to Phase II per the following guidelines: * Discharge Patient to appropriate Phase II area if PAR is 8 or greater or return to pre- procedure baseline. The post - procedure orders will be as directed. * If PAR score is less than 8 or not return to pre-procedure baseline then patient will follow Phase I monitoring till PAR is reached for Phase II. The Phase I may be done in procedure room or may call to secure a Phase I area. * If naloxone or flumazenil are used for reversal, hold in Phase I for continued monitoring from when last reversal dose was given for a minimum of 60 minutes or longer pending the nurse and/or physician discretion of patient condition before discharge to Phase II. Please call the Sedation Physician to re-evaluate and complete post-note for discharge to Phase II area. Do NOT discharge from procedure sedation or Phase 1 until post- sedation evaluation note is complete by procedure /sedation MD Sedation Discharge Instructions to be given to the patient at discharge to home.
[2019-12-10] MEDS ORDERED: OXYCODONE HCL IR 5 MG TAB (IMMEDIATE RELEASE) PO PRN (11:42)
--- NOTE | 2019-12-10 11:42 | Electrophysiology Report ---
Date of Service December 10, 2019 Electrophysiology Procedure Electrophysiology Procedure Report Procedure performed: Implantation of dual-chamber ICD Staff operations management professionals: Evin Martinez MD Indication: The patient is a 64-year-old woman with a history of hypertrophic cardiomyopathy who suffered an out of hospital cardiac arrest. She is an appropriate neurologic recovery and requires a ICD implant for secondary prevention of sudden cardiac . An atrial lead was added as the patient is currently bradycardic and will need pacing support. Procedure in detail: The patient was informed of the risks benefits and alternatives to the intended procedure and she wished to proceed. She was taken to the electrophysiology suite in a fasting state. A preoperative antibiotic had been administered. The patient was monitored electrocardiographically throughout today's procedure and conscious sedation was administered per protocol. The left upper pectoral area is prepped and draped in usual sterile fashion. This area was anesthetized using subcutaneous administration of a xylocaine solution. An incision was made at this site and carried down to the prepectoralis fascia using sharp dissection. Electrocautery was also employed for dissection as well as for hemostasis. A d evice pocket was fashioned tissues above the pectoralis muscle. Subsequent to this maneuver the left axillary vein was accessed using modified Seldinger technique. Sheaths were placed over guidewires at this site and used to facilitate passage of the pacing leads to the respective chambers under fluoroscopic guidance. This included right atrial and right ventricular leads. Adequate sensing and threshold parameters were obtained prior to Active fixation of the leads to the endocardial surface. The proximal portion leads were then sutured the prepectoral fascia using nonabsorbable suture. The device pocket was irrigated with antibiotic solution. The leads were then attached to the device. The device and leads were then placed in the pocket and pocket was closed in 3 layers of absorbable suture. Steri-Strips and sterile dressing were applied. The device was tested noninvasively prior to conclusion the procedure. The patient tolerated procedure well there no immediate complications. Equipment used: New pulse generator: [employer]. Model number: [id number] serial number [id number] Right atrial lead: P[employer]st Medtronic. Model number: [id number] serial number [id number] Right ventricular lead: [employer]st Medtronic. Model number: 6935M serial number [id number] Measured data: Right atrial lead: P-waves measured 2.5 millivolts. Pacing threshold 1.25 volts at 0.4 milliseconds with a pacing impedance of 361 Ohms Right ventricular lead: R-waves measured 20 millivolts. Pacing threshold was 1 volt at 0.4 milliseconds with a pacing impedance of 513 Ohms Impression: Successful implantation of dual-chamber ICD MNPG Electrophysiology codes ICD Procedure 1: ICD: 53614 Insert single or dual ICD system PG Moderate Sedation Codes Moderate Sedation Codes Procedure 1: Sedation/Anesthesia: 05116 Mod Sedation by the same physician;Init15 Min Child Age 5 & Up Procedure 2: Sedation/Anesthesia: 11293 Mod Sedation by the same physician; Ea [id number] Minutes
[2019-12-10] MEDS: METOPROLOL TARTRATE 25 MG TAB PO SCH ×2 (13:41→20:04)
[2019-12-10] MEDS: ATORVASTATIN 40 MG TAB PO SCH (13:41)
[2019-12-10] MEDS: ASPIRIN 81 MG CHEW PO SCH (13:41)
[2019-12-10] MEDS: HEPARIN SOD 5,000 UNIT/0.5 ML VIAL SQ SCH ×2 (13:41→20:04)
[2019-12-10] MEDS: CEFAZOLIN 1000MG 1,000 MG/7.5 ML SYR IV SCH (20:04)
[2019-12-11] MEDS: CEFAZOLIN 1000MG 1,000 MG/7.5 ML SYR IV SCH ×2 (04:02→11:08)
[2019-12-11 04:59] LABS: Basophils # (auto) 0.02 K/uL (0-0.2); Basophils % (auto) 0.4 %; Eosinophils # (auto) 0.12 K/uL (0-0.5); Eosinophils % (auto) 2.3 %; Hematocrit (blood only) 36.2 % (37-47); Hemoglobin 12.5 g/dL (12.0-16.0); Immature Granulocytes # (auto) 0.05 K/uL (0.00-0.02); Lymphocytes # (auto) 0.94 K/uL (1.2-3.4); Lymphocytes % (auto) 18.3 %; Mean Corpuscular Hemoglobin 31.8 pg (25-34); Mean Corpuscular Hgb Conc 34.5 g/dL (32-36); Mean Corpuscular Volume 92.1 fL (80-100); Mean Platelet Volume 9.9 fL (7.4-10.4); Monocytes # (auto) 0.57 K/uL (0.11-0.59); Monocytes % (auto) 11.1 %; Neutrophils # (auto) 3.43 K/uL (1.4-6.5); Neutrophils % (auto) 66.9 %; Nucleated RBC # (auto) 0.02 K/uL (0-0); Nucleated RBC % (auto) 0.4 %; Platelet Count 124 K/uL (130-400); RDW Coefficient of Variation 12.2 % (11.5-14.5); RDW Standard Deviation 41.5 fL (36.4-46.3); Red Blood Count 3.93 M/uL (4.2-5.4); White Blood Count 5.13 K/uL (4.8-10.8)
[2019-12-11 05:19] LABS: Albumin Level 2.9 gm/dl (3.4-5.0); BUN Creatinine Ratio 15.7 (10-20); Calcium 8.5 mg/dl (8.5-10.1); Est GFR (African American) 95.2; Est GFR (Non-African American) 82.2; Potassium 4.6 mmol/L (3.5-5.1)
[2019-12-11 05:21] LABS: Albumin Globulin Ratio 0.9 (0.9-2); Bilirubin,Total 0.6 mg/dl (0.2-1); Globulin 3.2 gm/dl (2.5-4.0); Total Protein 6.1 gm/dl (6.4-8.2)
[2019-12-11] MEDS: METOPROLOL TARTRATE 25 MG TAB PO SCH (07:28)
[2019-12-11] MEDS: ATORVASTATIN 40 MG TAB PO SCH (07:28)
[2019-12-11] MEDS: HEPARIN SOD 5,000 UNIT/0.5 ML VIAL SQ SCH (07:28)
--- NOTE | 2019-12-11 08:45 | XRay Report ---
XR chest 2V PA/lateral CLINICAL HISTORY: EXACT TIME ORDERED Evaluate for pneumothorax and l COMPARISON STUDY: 12/07/2019 FINDINGS: Placement of a cardiac pacemaker/defibrillator. Leads are in good position. No evidence pne umothorax. A small right pleural effusion. IMPRESSION: Cardiac pacer in good position. Small right effusion. No evidence for pneumothorax. ACT 112: Negative or not required by law. The above report was generated using voice recognition software. It may contain grammatical, syntax or spelling errors. Electronically signed by: Yg Newman M.D. 12/11/2019 8:44 AM
--- NOTE | 2019-12-11 12:11 | Cardiology Progress Note ---
Date of Service December 11, 2019 Assessment & Plan (1) Cardiac arrest: Patient appears to have undergone successful implantation of a dual- chamber ICD. No evident complication. Normal device function. From a device standpoint she is stable for discharge. My recommendation is that she avoid lifting the left arm above the shoulder behind the neck for 6 weeks. She should not get the wound wet and Steri-Strips sustain intact until follow-up sometime next week. Subjective This morning patient claims to be feeling well. In minimal discomfort at the device implant site. She has been ambulatory around the ríos without significant dyspnea. Review of Systems Review of Systems: Per HPI Physical Exam Physical Exam: Evaluation the device implant site reveals mild ecchymosis. No hematoma or drainage. No erythema. Results & Data Vital Signs (Past 12 Hours) Vital Signs Temp Pulse Pulse Resp BP BP Pulse Ox 12/11/19 09:25 60 20 99/79 L 94 12/11/19 09:00 60 21 12/11/19 08:43 64 19 12/11/19 08:00 60 22 12/11/19 07:30 60 17 12/11/19 07:00 60 19 12/11/19 06:45 60 18 12/11/19 04:00 37.3 C 72 18 154/73 H 95 Diagnostic Findings Device interrogation revealed good function of both atrial ventricular leads. Chest x-ray demonstrated good lead position without evidence of pneumothorax
--- NOTE | 2019-12-11 14:10 | Discharge Summary ---
Date of Service December 11, 2019 Admission HPI Per Admitting Provider Blanca Lopez is a 64 y/o female with past medical hx of hypertrophic cardiomyopathy who presented via EMS for CC of cardiac arrest. Per EMS report, patient collpased while out for a walk. No documentation of witness during collapse. Police arrived on scene with AED placement and AED shocked patient x1. EMS arrived with patient in asystole and CPR was being performed by police. Patient was medicated with a total of epi IV 5mg. She was found to be in PEA in the filed as well during treatment with epi. CPR was in progress with Nader machine upon arriveal. Pulse was found by ED provider and CPR was discontinued. arrived to ED and was made aware. Blanca was taken to cardiac clinical laboratory service teacher with Summary: 1. Moderate nonobstructive coronary artery disease -40 to 50% ostial RCA 20% ostial left main 50% mid LAD 60 to 70% ostial second diagonal 2. Normal intracardiac filling pressure 3. Successful central venous/cooling catheter placement Recommendations: ERNESTO-3 flow throughout and no evidence of high-grade acute coronary lesions. No disease to explain out of hospital cardiac arrest. Further cardiac evaluation/possible ICD per recommendations of her primary oil field tester Dr. Monge. Continue aspirin, statin and ASCVD risk factor modification. She is currently under the care if ICU team with current code artic. Admission Exam Per Admitting Provider Constitutional: WD/WN, vitals as above comfortable physical exam limited by: Sedated and Mechanically ventilated Eyes: PERRL, conjunctivae normal, anicteric sclerae ENMT: Nose: no external nose abnormality Mouth: no lip abnormality Neck: normal visual inspection and trachea midline Respiratory: Auscultation: lungs clear to auscultation bilaterally mecha nically ventilated Cardiovascular: distant heart sounds Gastrointestinal (Abdomen): Inspection/Auscultation: abdomen not distended Percussion/Palpation: abdomen soft Musculoskeletal: Head/Neck/Chest: normocephalic Skin: no rashes dry Neurologic: unable to evaluate, sedation Psychiatric: unable to evaluate sedation Principal Diagnosis cardiac arrest 2/2 hypertrophic cardiomyopathy causing ventricular arrhythmia Discharge Exam Constitutional: WD/WN, vitals as above Eyes: PERRL, conjunctivae normal, anicteric sclerae ENMT: external ear and nose normal, oropharynx normal Neck: normal visual inspection Respiratory: normal respiratory effort, lungs clear to auscultation Cardiovascular: Rate/Rhythm: regular rate and regular rhythm Heart Sounds: + murmur (3/6 systolic murmur best heard over L middle sternal border) Gastrointestinal (Abdomen): normal bowel sounds, soft, nontender, no hepatosplenomegaly Musculoskeletal: no cyanosis or clubbing, extremities motor strength 5/5 Skin: no rashes, warm pink and dry Psychiatric: A+Ox3, euthymic affect Discharge Data Allergies Allergy/AdvReac Type Severity Reaction Status Date / Time No Known Allergies Allergy Unknown Verified 12/05/19 17:16 Consultations 12/05/19 18:54 Consult Case Management - Discharge Planning Routine Consult Lease Administration Analyst Routine 12/05/19 19:10 Consult Cardiology Routine 12/05/19 19:14 Consult Case Management - Discharge Planning Routine 12/08/19 09:07 Consult Cardiac Electrophysiology Routine 12/08/19 11:51 Consult Neurology Routine Procedures Performed Operation Date: 12/05/19 18:00 Actual Procedures p Cath, Left with Cors and Vent - Samuel Gibson MD s Cineradiography w/Routine Exam - Samuel Gibson MD s Ultrasound Vascular Access - Samuel Gibson MD s Central Venous Cath Placement - Samuel Gibson MD Operation Date: 12/09/19 16:00 <No data on this case meets the specified criteria> Operation Date: 12/10/19 10:00 Actual Procedures p ICD Insertion Single or Dual - Samuel Martinez MD Operation Date: 12/11/19 10:00 <No data on this case meets the specified criteria> Ordered Studies 12/05/19 CT cervical spine wo con Stat 12/05/19 16:38 CT angio chest PE protocol Stat CT head/brain wo con Stat 12/05/19 17:32 CL Cath Imgs for PACS use only Stat 12/09/19 09:30 MR brain wo con Routine 12/10/19 06:48 CL Cath Imgs for PACS use only Stat Hospital Course (1) Cardiac arrest: 64 yo female with PMHx HOCM admitted to the ICU after suffering an out of hospital cardiac arrest while walking, achieved ROSC after AED shock and CPR en route to hospital. Cardiac arrest in patient with Hx HOCM: - Out of hospital, had AED shock x1, epi total 5mg IV, CPR performed in field with ROSC in ED. - On arrival troponin 0.383 initial in setting of cardiac arrest from likely ventricular dysrhythmia. - Cardiac cath performed without stentable disease as below: - LM - Short, 20% ostial - LAD - medium caliber vessel which wraps around apex. Mid LAD after first diagonal with 50% stenosis. Medium caliber second diagonal with 60 to 70% ostial stenosis - Circumflex - medium caliber vessel, luminal irregularities. Gives off to OM's and a distal left PLB. - RCA - dominant, large caliber vessel, 40 to 50% ostial stenosis improved with vasodilators. Remainder vessel without significant disease - Weaned off of ventilation with good oxygen saturation and tolerating room air. - Completed therapeutic hypothermia protocol. - CT head and CT cervical spine both negative for acute injury. - Mri without masses, hemorrhage, infarct. - Cardiac event likely cardiac arrest 2/2 HOCM-induced ventricular arrhythmia, possibly in some part 2/2 dehydration during exercising in the warm weather. - Cardiology consulted and appreciate recommendations: - Started metoprolol tartrate 25mg BID this admission. - Atorvastatin increased to 40mg daily given moderate disease on catheterization. - This admission had defibrillator placed. For d/c home with home health services (speech for memory therapy in particular). - Continue home aspirin. Anoxic encephalopathy: - Patient with cardiac arrest as above. - Continues to have difficulty with short time memory, though mildly improved each day. - Suspect will have some element of return to normal memory, however unclear at this time how much. - CT head /MRI negative for acute injury. - Neurology consult placed and appreciate recommendations: - For Neurology follow up non-urgently following discharge. ? Aspiration pneumonitis vs. pneumonia vs. atelectasis: - Initial CT scan showed bibasilar atelectatic changes vs. aspiration pneumonitis vs. pneumonia. - Patient continued to be afebrile and without leukocytosis; no antibiotics given. - Suspect 2/2 atelectasis; encouraged continued use of incentive spirometer while admitted. Transaminitis likely 2/2 Shock Liver: - On admission AST 770; ALT 823. - Continued to downtrend following continued recovery from acute cardiac event. - 12/10: AST 59, ALT 159. Likely shock liver that will self-resolve. Rib fractures: - Seen on CXR. - Consistent with CPR in field. - Patient without complaints at this time, oxygenating well on RA, no flail chest. - Tylenol PRN rib pain. Discharge home with home health services, memory therapy (2) Fracture, ribs: (3) Hypertrophic cardiomyopathy: (4) Hyperlipidemia: (5) Transaminitis: (6) Aspiration into airway: (7) Elevated troponin: Total Time Total Time Spent Total Time Spent (In Minutes): see attending attestation Discharge Plan Discharge Items Patient Disposition: Home - Home Health Services Reason For Visit: CARDIAC ARREST Discharge Diagnosis: cardiac arrest due to hypertrophic cardiomyopathy Activity: Per Instructions section Lifting: No more than 5 pounds Non-emergency contact: Primary Care Provider and Final Inspector And Tester Call non-emergency contact if: you have any medication questions, your symptoms worsen and your temperature is above 101 Follow-up/Referrals: Samuel Martinez MD [Physician] - 12/17/19 11:00 am (Please, follow up at [facility] Phys[facility] Cardiology Office on December 16 at 11:00 am. Please, follow up at [facility] Cardiology Office on SaturdayJanuary 12 at 2:00 pm.) Ventura Monge DO [Physician] - (Follow up with Dr. Monge in two weeks.) Bro Oleary MD [Primary Care Provider] - 12/18/19 9:50 am (Please, follow up at Dr. Oleary's office with his associate, Fela SALAS, on SaturdayDecember 17 at 9:50 am. *If you need to change this appointment, call their office at [phone].) Diet: Heart Healthy Addtl Attending Provider Instructions: You were admitted to the hospital for cardiac arrest. You had compressions and a shock which restarted your heart. You went into cardiac arrest because you had an irregular rhythm due to your cardiomyopathy. While you were admitted we placed a defibrillator in your chest. This is a device which senses irregular rhythms and can shock your heart back into normal rhythm if it needs to. This can feel very uncomfortable, like getting kicked. Because you had compressions to your chest, you have a broken rib. You can take Tylenol at home for the pain. Please be careful with your defibrillatory site and do not lift the left arm over your head for a few days. Do not lift anything over 5 pounds with the left arm. Because of your cardiac arrest there was an amount of time where your brain was not getting enough oxygen, and it had an injury which caused you to have short term memory loss. This should continue to improve with time and with therapy, though it is not clear how much of your memory will come back. It is important that you keep working on memory-building exercises and games, and the therapist who comes to your house will help you with memory exercises. While you were here you were started on a medication called metoprolol by Dr. Monge. You will take one 25 milligram pill every 12 hours. You will stop your home cholesterol medication (the statin one) and start taking atorvastatin 40 milligrams, one pill every day. This has been sent to [facility] on [facility] [address]. You will have follow up appointments with Dr. Monge your oil field tester, Dr. Martinez the doctor who put in your pacemaker, and Dr. Oleary (your primary care doctor). You will be called for all of these appointments. If you are not called, please call their offices at the numbers listed above to schedule appointments. If you have any chest pain, trouble breathing, change in mental status, fevers over 101, please seek urgent medical care. If you feel your defibrillator go off, you need to call your oil field tester Dr. Monge, and go to the hospital. Pending Studies at Discharge: No Stand-Alone Forms: My [facility] [employer], Smoking Cessation Medications and DC Order Prescriptions: New atorvastatin 40 mg Tablet 40 mg PO DAILY 30 Days Qty: 30 RF: 0 metoprolol tartrate 25 mg Tablet 25 mg PO BID 30 Days Qty: 60 RF: 0 Continued ASPIRIN (ASPIRIN EC) 81 MG tablet 81 mg PO Q2D Qty: 0 RF: 0 CALCIUM CARBONATE-VITAMIN D (CALCIUM PLUS VITAMIN D) 1 CAP capsule 2 cap PO DAILY Qty: 0 RF: 0 Fish Oil (Peebles-3) 1 EA capsule 1 cap PO DAILY Qty: 0 RF: 0 GLUCOSAMINE-CHONDROITIN 500MG/400 MG (GLUCOSAMINE-CHONDROITIN 500 MG/400 MG) 1 CAP capsule 1 cap PO DAILY Qty: 0 RF: 0 Psyllium (Metamucil Fiber) 51.7 % NED 1 dose PO DAILY Qty: 0 RF: 0 Ranitidine Hcl (ZANTAC) 150 MG tablet 150 mg PO PRN Qty: 0 RF: 0 Discontinued ATORVASTATIN (LIPITOR) 10 MG tablet 10 mg PO Q2D Qty: 0 RF: 0 Discharge Orders: Discharge Order (Routine); Ordered 12/11/19 Ordered By: Sandy Molina Admission Data Admit Date/Time: 12/05/19 18:54 Attending Provider: Issac Rocha Admit Provider: Samuel Gibson Primary Care Provider: Bro Oleary Other Providers: Saida Guajardo ; Mayur Adams ; Mayur Murray ; Ventura Monge ; Samuel Martinez ; [facility],Home Healthcare Other Interventions: Discharge Summary Assessment (RN) Last Done: 12/11/19 13:42 DC Date/Time DO NOT enter until pt leaves facility: 12/11/19 14:18 Supervising Physician Co-Signing Physician Notes Patient seen and examined with PGY-2 Dr. Molina. Agree with history, exam finding, assessment and plan of care as outlined. In brief, Ms Lopez is a 64 year old female with history of hypertrophic cardiomyopathy admitted following cardiac arrest. ROSC achieved in the field. During this hospital stay, she had a dual chamber ICD placed (December 10, 2019). Metoprolol started. Noted to also have moderate CAD--not stentable. Increased atorvastatin to 20mg. With cardiac arrest, she did sustain some degree of anoxic brain injury. She is having some difficulty with short term memory. She will have speech therapy to assist with cognitive retraining via home health. I personally spent 35 minutes discharge planning for this patient. Resident Activity Tracking Resident Involvement: Resident Care Provided Care Provided: Adult Hospital Medicine
[2019-12-11] MEDS ORDERED: SODIUM BICARB 8.4% INJ 50 MEQ/50 ML SYR IV ONE (14:17)
== END 2019-12-11 14:18 | disposition home health service (06) | DRG 265 ==
LOC: EDBD → ED 16:05 → MERGE 16:05 → CC 17:55 → SUATTDRO 18:54 → 1E 18:54
PROC: EPB.ICD (2019-12-10 10:00)